=== PATIENT | female | born 1965 | race Caucasian/White ===

== ENCOUNTER → 2022-01-29 | Outpatient (CLI) | payer MEDICARE, MEDICAID | LOC: WOUNDCARE 08:46 | PROVIDERS: ATTEND Family Medicine | DX: L89.154 Pressure ulcer of sacral region, stage 4 (principal); L89.612 Pressure ulcer of right heel, stage 2; M46.28 Osteomyelitis of vertebra, sacral and sacrococcygeal region; E66.01 Morbid (severe) obesity due to excess calories; F72 Severe intellectual disabilities; E43 Unspecified severe protein-calorie malnutrition; U09.9 Post COVID-19 condition, unspecified; D46.4 Refractory anemia, unspecified; E55.9 Vitamin D deficiency, unspecified | CPT/HCPCS: 11042; 11045; A6212; G0463 ==

== ENCOUNTER → 2022-02-06 | Outpatient (CLI) | payer MEDICARE, MEDICAID | LOC: WOUNDCARE 09:19 | PROVIDERS: ATTEND Family Medicine | DX: L89.154 Pressure ulcer of sacral region, stage 4 (principal); L89.612 Pressure ulcer of right heel, stage 2; M46.28 Osteomyelitis of vertebra, sacral and sacrococcygeal region; E66.01 Morbid (severe) obesity due to excess calories; F72 Severe intellectual disabilities; U09.9 Post COVID-19 condition, unspecified; D64.9 Anemia, unspecified; E55.9 Vitamin D deficiency, unspecified; R47.01 Aphasia; F31.9 Bipolar disorder, unspecified; F20.9 Schizophrenia, unspecified | CPT/HCPCS: 11042; 11045; A6212; G0463 ==

== ENCOUNTER → 2022-02-13 | Outpatient (CLI) | payer MEDICARE, MEDICAID | LOC: WOUNDCARE 08:45 | PROVIDERS: ATTEND Family Medicine | DX: L89.154 Pressure ulcer of sacral region, stage 4 (principal); L89.612 Pressure ulcer of right heel, stage 2; M46.28 Osteomyelitis of vertebra, sacral and sacrococcygeal region; E66.01 Morbid (severe) obesity due to excess calories; F72 Severe intellectual disabilities; U09.9 Post COVID-19 condition, unspecified; E55.9 Vitamin D deficiency, unspecified; D46.4 Refractory anemia, unspecified; I96 Gangrene, not elsewhere classified | CPT/HCPCS: 11042; 11045; A6212; G0463 ==

== ENCOUNTER → 2022-02-21 | Outpatient (CLI) | payer MEDICARE, MEDICAID | LOC: WOUNDCARE 09:43 | PROVIDERS: ATTEND Family Medicine | DX: L89.154 Pressure ulcer of sacral region, stage 4 (principal); M46.28 Osteomyelitis of vertebra, sacral and sacrococcygeal region; E66.01 Morbid (severe) obesity due to excess calories; F72 Severe intellectual disabilities; U09.9 Post COVID-19 condition, unspecified; D46.4 Refractory anemia, unspecified; E55.9 Vitamin D deficiency, unspecified; I96 Gangrene, not elsewhere classified | CPT/HCPCS: 11042; 11045; 87070; 87077; 87186; 87205; G0463 ==

== ENCOUNTER → 2022-02-28 | Outpatient (CLI) | payer MEDICARE, MEDICAID | LOC: WOUNDCARE 09:31 | PROVIDERS: ATTEND Family Medicine | DX: L89.154 Pressure ulcer of sacral region, stage 4 (principal); M46.28 Osteomyelitis of vertebra, sacral and sacrococcygeal region; E66.01 Morbid (severe) obesity due to excess calories; F79 Unspecified intellectual disabilities; U09.9 Post COVID-19 condition, unspecified; E55.9 Vitamin D deficiency, unspecified; D46.4 Refractory anemia, unspecified; B95.2 Enterococcus as the cause of diseases classified elsewhere; I96 Gangrene, not elsewhere classified | CPT/HCPCS: 11043; 11046; G0463 ==

== ENCOUNTER → 2022-03-05 | Outpatient (CLI) | payer MEDICARE, MEDICAID ==
[~2022-03-05] MED LIST: CATHETER FLUSH 10 ML SYR IV PRN; HOLD METFORMIN - RECEIVED CONTRAST 20 ML VIAL IV SCH; IOHEXOL 350 MG/ML 100 ML (OMNIPAQUE 350) VIAL IV ONE; NS 100 ML (IVPB) BAG IV ONE
--- NOTE | 2022-03-05 13:42 | Diagnostic Imaging Report ---
EXAMINATION: CT abdomen and pelvis with intravenous contrast. TECHNIQUE: Multiple contiguous axial images were obtained through the abdomen and pelvis after the uneventful administration of intravenous contrast. All CT scans use one or more of the following dose optimizing techniques: automated exposure control, MA and/or KvP adjustment based on patient size and exam type or iterative reconstruction. HISTORY: Abdominal pain. COMPARISON: None available. FINDINGS: Limited views of the lower thorax are unremarkable. The liver is normal without focal lesion. There is no biliary ductal dilation. Gallbladder is normal. Pancreas is normal. Spleen is normal. Adrenal glands are normal. The kidneys are normal. There is no hydronephrosis. Bladder is decompressed by Pichardo catheter. Bowel is normal in caliber without obstruction or inflammation. There is a percutaneous gastrostomy tube. No free fluid or air. No abdominal or pelvic lymphadenopathy. Aorta is normal in caliber without aneurysm. There is a sacral wound directly abutting the coccyx. No erosions or sclerosis are seen in the coccyx. IMPRESSION: 1. No acute intra-abdominal abnormality. 2. Sacral decubitus ulcer abutting the coccyx, concerning for osteomyelitis. No direct CT evidence is seen of osteomyelitis. Dictated by: Dictated on workstation # [id number]
== END ==
LOC: RAD 13:00
PROVIDERS: ATTEND Nurse Practitioner Family
DX: L89.159 Pressure ulcer of sacral region, unspecified stage (principal); R10.9 Unspecified abdominal pain
CPT/HCPCS: 74177

== ENCOUNTER → 2022-03-06 | Outpatient (CLI) | payer MEDICARE, MEDICAID | LOC: WOUNDCARE 14:39 | PROVIDERS: ATTEND Family Medicine | DX: L89.154 Pressure ulcer of sacral region, stage 4 (principal); M46.28 Osteomyelitis of vertebra, sacral and sacrococcygeal region; E66.01 Morbid (severe) obesity due to excess calories; F72 Severe intellectual disabilities; U09.9 Post COVID-19 condition, unspecified; D46.4 Refractory anemia, unspecified; E55.9 Vitamin D deficiency, unspecified; B95.2 Enterococcus as the cause of diseases classified elsewhere; I96 Gangrene, not elsewhere classified | CPT/HCPCS: 11043; 11046; G0463 ==

== ENCOUNTER → 2022-03-19 | Outpatient (CLI) | payer MEDICARE, MEDICAID | LOC: WOUNDCARE 14:19 | PROVIDERS: ATTEND Family Medicine | DX: L89.154 Pressure ulcer of sacral region, stage 4 (principal); M46.28 Osteomyelitis of vertebra, sacral and sacrococcygeal region; E66.01 Morbid (severe) obesity due to excess calories; F72 Severe intellectual disabilities; U09.9 Post COVID-19 condition, unspecified; E55.9 Vitamin D deficiency, unspecified; D46.4 Refractory anemia, unspecified; B95.2 Enterococcus as the cause of diseases classified elsewhere; I96 Gangrene, not elsewhere classified | CPT/HCPCS: 99213 ==

== ENCOUNTER → 2022-04-03 | Outpatient (CLI) | payer MEDICARE, MEDICAID | LOC: WOUNDCARE 09:50 | PROVIDERS: ATTEND Family Medicine | DX: I96 Gangrene, not elsewhere classified (principal); L89.154 Pressure ulcer of sacral region, stage 4; M46.28 Osteomyelitis of vertebra, sacral and sacrococcygeal region; F72 Severe intellectual disabilities; D46.4 Refractory anemia, unspecified; L21.8 Other seborrheic dermatitis; E55.9 Vitamin D deficiency, unspecified; U09.9 Post COVID-19 condition, unspecified | CPT/HCPCS: 11042; G0463 ==

== ENCOUNTER 2022-04-23 17:15 | Inpatient (IN) | payer MEDICARE, MEDICAID ==
[~2022-04-23] VITALS: Ht 167.7 cm; Wt 84.9 kg
--- NOTE | 2022-04-23 17:25 | ED General ---
General Chief Complaint: General Problems/Pain Stated Complaint: UTI Source of Information: EMS Exam Limitations: Physical Impairments (LORENA NEWBERRY MD) History of Present Illness Date Seen by Provider: Apr 23, 2022 Time Seen by Provider: 17:15 Initial Comments Patient is a 57-year-old mentally challenged individual from a local [facility] with feeding tube and chronic indwelling Suarez catheter sent for persistent crying and not improving post treatment for UTI last week. She finished 3 days of Rocephin on Thursday. At the same time she has had bilateral conjunctivitis for which she is on tobramycin drops. She does not communicate well due to her intellectual disability. I am unable to elicit HPI, review of systems, past medical family or social history. She does say "I do not feel good" and is crying out persistently. Timing/Duration: 1 Week (LORENA NEWBERRY MD) Allergies and Home Medications Allergies Coded Allergies: cranberry (Verified Allergy, Unknown, 04/23/22) Patient Home Medication List Home Medication List Reviewed: Yes (LORENA NEWBERRY MD) Review of Systems Review of Systems Constitutional: see HPI EENTM: eye pain (Discharge), tearing Unable to obtain review of systems due to intellectual disability (LORENA NEWBERRY MD) Physical Exam Vital Signs Vital Signs - First Documented 04/23/22 17:18 Temp 37.3 Pulse 110 Resp 19 B/P (MAP) 118/90 (99) Pulse Ox 97 (JED PARIS MD) Vital Signs Capillary Refill : (LORENA NEWBERRY MD) Height, Weight, BMI Height: '" Weight: lbs. oz. kg; BMI Method: General Appearance: Anxious, Moderate Distress (crying) Eyes: Bilateral Eye Lid Inflammation, Bilateral Eye Other (yellow drainage and conjunctival injection bilaterally) HEENT: PERRL/EOMI, TM Abnormal (L) (occluded by cerumen), Other (dry oral mucosa - no lesions or abscesses noted) Neck: Normal Inspection, Supple Respiratory: Lungs Clear, Normal Breath Sounds, No Accessory Muscle Use, No Respiratory Distress Cardiovascular: Regular Rate, Rhythm, Normal Peripheral Pulses Gastrointestinal: Soft, Other (peg tube/feeding tube site is clean) Genital/Rectal: Other (no rashes - large sacral decubitus ulcer - cleanly packed with saline soaked gauze; no drainage. no surrounding erythema; clean suarez catheter in place) Back: Normal Inspection Extremity: Normal Inspection Neurologic/Psychiatric: Alert, Other (distressed, crying out) Skin: Normal Color, Warm/Dry, Other (no rashes) (LORENA NEWBERRY MD) Focused Exam Sepsis Stage: Sepsis Possible Source: Genitouriary Lactate Level 04/23/22 17:50: Lactic Acid Level 2.05*H 04/23/22 19:57: Lactic Acid Level 2.01*H 04/23/22 22:12: Lactic Acid Level 1.85 (JED PARIS MD) Time of Focused Exam: 20:50 Respiratory: Lungs Clear Cardiovascular: Regular Rate, Rhythm, No Edema Skin: normal color Lactic Acid Level Laboratory Tests Test 04/23/22 17:50 04/23/22 19:57 04/23/22 22:12 Lactic Acid Level 2.05 MMOL/L (0.50-2.00) *H 2.01 MMOL/L (0.50-2.00) *H 1.85 MMOL/L (0.50-2.00) (JED PARIS MD) Within 3hrs of presentation: Admin fluids, Admin ABX, Blood cultures prior to ABX's, Focus exam, Lactate level (JED PARIS MD) Progress/Results/Core Measures Suspected Sepsis SIRS Temperature: Pulse: Respiratory Rate: Laboratory Tests 04/23/22 17:50: White Blood Count 18.5H Blood Pressure / Mean: 04/23/22 17:50: Lactic Acid Level 2.05*H 04/23/22 19:57: Lactic Acid Level 2.01*H 04/23/22 22:12: Lactic Acid Level 1.85 Laboratory Tests 04/23/22 17:50: Creatinine 0.61, INR Comment 1.0, Platelet Count 559H, Total Bilirubin 0.2 (LORENA NEWBERRY MD) Results/Orders Lab Results Laboratory Tests Test 04/23/22 17:50 04/23/22 19:57 04/23/22 22:12 Range/Units White Blood Count 18.5 H 4.3-11.0 10^3/uL Red Blood Count 3.66 L 3.80-5.11 10^6/uL Hemoglobin 11.5 11.5-16.0 g/dL Hematocrit 36 35-52 % Mean Corpuscular Volume 97 80-99 fL Mean Corpuscular Hemoglobin 31 25-34 pg Mean Corpuscular Hemoglobin Concent 32 32-36 g/dL Red Cell Distribution Width 14.4 10.0-14.5 % Platelet Count 559 H 130-400 10^3/uL Mean Platelet Volume 9.2 9.0-12.2 fL Immature Granulocyte % (Auto) 1 % Neutrophils (%) (Auto) 69 42-75 % Lymphocytes (%) (Auto) 19 12-44 % Monocytes (%) (Auto) 9 0-12 % Eosinophils (%) (Auto) 1 0-10 % Basophils (%) (Auto) 0 0-10 % Neutrophils # (Auto) 12.7 H 1.8-7.8 10^3/uL Lymphocytes # (Auto) 3.6 1.0-4.0 10^3/uL Monocytes # (Auto) 1.7 H 0.0-1.0 10^3/uL Eosinophils # (Auto) 0.2 0.0-0.3 10^3/uL Basophils # (Auto) 0.0 0.0-0.1 10^3/uL Immature Granulocyte # (Auto) 0.3 H 0.0-0.1 10^3/uL Neutrophils % (Manual) 66 % Lymphocytes % (Manual) 20 % Monocytes % (Manual) 11 % Eosinophils % (Manual) 1 % Band Neutrophils 2 % Polychromasia SLIGHT Prothrombin Time 13.2 12.2-14.7 SEC INR Comment 1.0 0.8-1.4 Activated Partial Thromboplast Time 26 24-35 SEC Urine Color YELLOW Urine Clarity CLEAR Urine pH 8.0 5-9 Urine Specific [place] 1.010 L 1.016-1.022 Urine Protein TRACE H NEGATIVE Urine Glucose (UA) NEGATIVE NEGATIVE Urine Ketones NEGATIVE NEGATIVE Urine Nitrite NEGATIVE NEGATIVE Urine Bilirubin NEGATIVE NEGATIVE Urine Urobilinogen 0.2 < = 1.0 MG/DL Urine Leukocyte Esterase 2+ H NEGATIVE Urine RBC (Auto) NEGATIVE NEGATIVE Urine RBC NONE /HPF Urine WBC 25-50 H /HPF Urine Squamous Epithelial Cells NONE /HPF Urine Crystals NONE /LPF Urine Bacteria MODERATE H /HPF Urine Casts NONE /LPF Urine Mucus SMALL H /LPF Urine Culture Indicated CULTURE PENDING Sodium Level 137 135-145 MMOL/L Potassium Level 3.9 3.6-5.0 MMOL/L Chloride Level 99 98-107 MMOL/L Carbon Dioxide Level 26 21-32 MMOL/L Anion Gap 12 5-14 MMOL/L Blood Urea Nitrogen 32 H 7-18 MG/DL Creatinine 0.61 0.60-1.30 MG/DL Estimat Glomerular Filtration Rate 104 BUN/Creatinine Ratio 52 Glucose Level 108 H 70-105 MG/DL Lactic Acid Level 2.05 *H 2.01 *H 1.85 0.50-2.00 MMOL/L Calcium Level 9.8 8.5-10.1 MG/DL Corrected Calcium 10.7 H 8.5-10.1 MG/DL Total Bilirubin 0.2 0.1-1.0 MG/DL Aspartate Amino Transf (AST/SGOT) 16 5-34 U/L Alanine Aminotransferase (ALT/SGPT) 10 0-55 U/L Alkaline Phosphatase 89 40-136 U/L C-Reactive Protein High Sensitivity 1.29 H 0.00-0.50 MG/DL Total Protein 7.6 6.4-8.2 GM/DL Albumin 2.9 L 3.2-4.5 GM/DL Procalcitonin 0.10 H <0.10 NG/ML SARS-CoV-2 RNA (RT-PCR) Not Detected Not Detecte (JED PARIS MD) My Orders Orders - JED PARIS MD Ceftriaxone 1 Gm Pre-Mix (Rocephin 1 Gm (04/23/22 19:00) Ondansetron Injection (Zofran Injectio (04/23/22 20:30) Fentanyl Inj (Sublimaze Injection) (04/23/22 20:30) Ampicillin For Iv Use (Ampicillin For (04/23/22 20:30) Ct Abdomen/Pelvis W (04/23/22 21:00) Iohexol Injection (Omnipaque 350 Mg/Ml 1 (04/23/22 21:15) Ns (Ivpb) (Sodium Chloride 0.9% Ivpb Bag (04/23/22 21:15) Lactated Ringers (Lr 1000 Ml Iv Solution (04/23/22 23:00) (JED PARIS MD) Medications Given in ED Current Medications Medications Dose Ordered Sig/Schuyler Route Start Time Stop Time Status Last Admin Dose Admin Ampicillin Sodium 1000 mg/Sterile Water 7.4 ml @ 30 mls/hr ONCE ONCE IV 04/23/22 20:30 04/23/22 20:44 DC 04/23/22 21:22 30 MLS/HR Fentanyl Citrate 50 mcg ONCE ONCE IVP 04/23/22 20:30 04/23/22 20:31 DC 04/23/22 20:38 50 MCG Iohexol 100 ml ONCE ONCE IV 04/23/22 21:15 04/23/22 21:16 DC 04/23/22 21:11 100 ML Ondansetron HCl 8 mg ONCE ONCE IVP 04/23/22 20:30 04/23/22 20:31 DC 04/23/22 20:37 8 MG Sodium Chloride 100 ml ONCE ONCE IV 04/23/22 21:15 04/23/22 21:16 DC 04/23/22 21:11 80 ML (JED PARIS MD) Vital Signs/I&O 04/23/22 17:18 Temp 37.3 Pulse 110 Resp 19 B/P (MAP) 118/90 (99) Pulse Ox 97 (JED PARIS MD) Vital Signs/I&O Capillary Refill : (LORENA NEWBERRY MD) Departure Communication (Admissions) Time/Spoke to Admitting Phy: 22:50 Dr. Celeste Time/Spoke to Consulting Phy: 22:55 Dr. Lanier (JED PARIS MD) Impression Primary Impression: Sepsis Qualified Codes: A41.9 - Sepsis, unspecified organism Additional Impressions: Urinary tract infection Qualified Codes: N39.0 - Urinary tract infection, site not specified Decubitus ulcer of coccygeal region, stage 4 Abdominal pain Qualified Codes: R10.10 - Upper abdominal pain, unspecified Conjunctivitis Disposition: 01 HOME, SELF-CARE Condition: Stable Admissions Decision to Admit Reason: Admit from ER (General) Decision to Admit/Date: Apr 23, 2022 Time/Decision to Admit Time: 22:55 (JED PARIS MD) Departure-Patient Inst. Referrals: JOHN PICKERING MD (PCP/Family) Primary Care Physician LORENA NEWBERRY MD Apr 23, 2022 17:24 JED PARIS MD Apr 23, 2022 23:13
[2022-04-23] MEDS ORDERED: NS IV 1000 ML 1,000 ML IV SCH (17:30)
[2022-04-23 18:03] LABS: BASOPHILS % (AUTO) 0 % (0-10); EOSINOPHILS # (AUTO) 0.2 10^3/uL (0.0-0.3); EOSINOPHILS % (AUTO) 1 % (0-10); HEMATOCRIT 36 % (35-52); HEMOGLOBIN 11.5 g/dL (11.5-16.0); LYMPHOCYTES # (AUTO) 3.6 10^3/uL (1.0-4.0); LYMPHOCYTES % (AUTO) 19 % (12-44); MEAN CORPUSCULAR HEMOGLOBIN 31 pg (25-34); MEAN CORPUSCULAR HGB CONC 32 g/dL (32-36); MEAN CORPUSCULAR VOLUME 97 fL (80-99); MEAN PLATELET VOLUME 9.2 fL (9.0-12.2); MONOCYTES # (AUTO) 1.7 10^3/uL (0.0-1.0); MONOCYTES % (AUTO) 9 % (0-12); NEUTROPHILS # (AUTO) 12.7 10^3/uL (1.8-7.8); NEUTROPHILS % (AUTO) 69 % (42-75); WHITE BLOOD COUNT 18.5 10^3/uL (4.3-11.0)
--- NOTE | 2022-04-23 18:06 | Diagnostic Imaging Report ---
INDICATION: Altered mental status, confusion. COMPARISON: None available. TECHNIQUE: Single radiograph of the chest dated April 23, 2022. FINDINGS: The cardiac silhouette is within normal limits in size. No significant pulmonary vascular congestion. Patient rotation is present. When accounting for patient rotation, the lungs appear clear. No pleural effusion. No pneumothorax. No acute osseous abnormality. IMPRESSION: No acute cardiopulmonary abnormality. Dictated by: Dictated on workstation # [id number]
[2022-04-23 18:14] LABS: BILIRUBIN,URINE NEGATIVE (NEGATIVE); CLARITY,URINE CLEAR; COLOR,URINE YELLOW; GLUCOSE, URINE (UA) NEGATIVE (NEGATIVE); KETONES,URINE NEGATIVE (NEGATIVE); LEUKOCYTE ESTERASE ,URINE 2+ (NEGATIVE); NITRITE,URINE NEGATIVE (NEGATIVE); PROTEIN,URINE TRACE (NEGATIVE)
[2022-04-23 18:17] LABS: PROTHROMBIN TIME PATIENT 13.2 SEC (12.2-14.7)
[2022-04-23 18:24] LABS: ALBUMIN 2.9 GM/DL (3.2-4.5); BILIRUBIN,TOTAL 0.2 MG/DL (0.1-1.0); CALCIUM 9.8 MG/DL (8.5-10.1); CREATININE SERUM 0.61 MG/DL (0.60-1.30); POTASSIUM 3.9 MMOL/L (3.6-5.0); TOTAL PROTEIN 7.6 GM/DL (6.4-8.2)
[2022-04-23 18:48] LABS: BACTERIA,URINE MODERATE /HPF; WBC,URINE 25-50 /HPF
[2022-04-23] MEDS ORDERED: cefTRIAXone 1 GM PRE-MIX 50 ML IV STA (19:00)
[2022-04-23 19:24] LABS: BAND NEUTROPHILS 2 %; LYMPHOCYTES % (MANUAL) 20 %; MONOCYTES % (MANUAL) 11 %; NEUTROPHILS % (MANUAL) 66 %; PLATELET COUNT 559 10^3/uL (130-400)
[2022-04-23 19:25] LABS: EOSINOPHILS % (MANUAL) 1 %; POLYCHROMASIA SLIGHT
[2022-04-23] MEDS ORDERED: AMPICILLIN FOR IV USE 1,000 MG in WATER (STERILE) FOR INJECTION 7.4 ML IV ONE (20:30)
[2022-04-23] MEDS ORDERED: fentaNYL INJ 100 MCG/2 ML AMP IVP ONE (20:30)
[2022-04-23] MEDS ORDERED: ONDANSETRON 4 MG/2 ML (SDV) Z0FRAN IVP ONE (20:30)
[2022-04-23] MEDS ORDERED: IOHEXOL 350 MG/ML 100 ML (OMNIPAQUE 350) VIAL IV ONE (21:15)
[2022-04-23] MEDS ORDERED: NS 100 ML (IVPB) BAG IV ONE (21:15)
--- NOTE | 2022-04-23 21:33 | Diagnostic Imaging Report ---
PROCEDURE: CT abdomen and pelvis with contrast. TECHNIQUE: Multiple contiguous axial images were obtained through the abdomen and pelvis after administration of intravenous contrast. Auto Exposure Controls were utilized during the CT exam to meet ALARA standards for radiation dose reduction. All CT scans use one or more of the following dose optimizing techniques: automated exposure control, MA and/or KvP adjustment based on patient size and exam type or iterative reconstruction. INDICATION: Abdominal pain. Leukocytosis. UTI. COMPARISON: 03/05/2022. FINDINGS: Included portions of the lung bases are obscured by motion artifact. There is mild atelectasis posteriorly on the left. CT ABDOMEN: Indwelling percutaneous gastrostomy tube is identified. Although the patency of the tube cannot be assessed, the tube does appear to be in appropriate position. Small bowel loops are nondistended. Normal appendix is identified. The kidneys, adrenal glands, spleen, pancreas and liver have a normal CT appearance. There is no loculated fluid collection, free fluid or free air within the abdomen. No abnormal mesenteric or retroperitoneal adenopathy is seen. Mild scattered calcified aortic and arterial atherosclerosis is noted. Osseous structures show no acute abnormality. CT PELVIS: Pichardo catheter is present within the urinary bladder. Urinary bladder is decompressed. There is no loculated fluid collection, free fluid or free air. No abnormal adenopathy is seen. Large decubitus ulcer is identified posteriorly. This extends to the coccyx. There is abnormal sclerotic appearance of the coccyx. Constellation of findings are concerning for osteomyelitis. IMPRESSION: 1. Large decubitus ulcer with sclerotic change to the coccyx. This is new compared to 03/05/2022 and is concerning for osteomyelitis. 2. Other nonemergent findings as above. Dictated by: Dictated on workstation # [id number]
[2022-04-23] MEDS ORDERED: LACTATED RINGERS 1,000 ML IV ONE (23:00)
[2022-04-24] VITALS (11 sets, daily range): BP systolic 101–153; BP diastolic 61–85
[2022-04-24] MEDS ORDERED: ONDANSETRON 4 MG/2 ML (SDV) Z0FRAN IV PRN (01:15)
[2022-04-24] MEDS: LACTATED RINGERS 1,000 ML IV SCH ×4 (01:52→21:15)
[2022-04-24] MEDS: AMPICILLIN 2,000 MG/NS 100 ML IVPB IV SCH ×8 (03:39→21:33)
[2022-04-24 06:41] LABS: CALCIUM 9.5 MG/DL (8.5-10.1); CREATININE SERUM 0.6 MG/DL (0.60-1.30); POTASSIUM 3.9 MMOL/L (3.6-5.0)
[2022-04-24] MEDS ORDERED: HYPOCHLOROUS ACID/NaCl (VASHE) 250 ML IR SCH (08:45)
--- NOTE | 2022-04-24 08:52 | Wound Care Assessment ---
Wound Care Assessment Date Seen by Provider: Apr 24, 2022 Time Seen by Provider: 08:42 Chief Complaint S4 Sacral decubitus ulcer with chronic refractory osteomyelitis HPI Latoya is a 57 year old patient with severe intellectual disability admitted to hospital with sepsis from osteomyelitis vs. urinary origin. She is currently at her baseline mental status from my past interactions with her. She is unable to provide history and cries out frequently when disturbed. We have been treating Latoya since 01-29-22 for this ulceration with significant improvement in measurements. Her initial measurements were: 6.5x5.0x2.7cm. She developed ulceration as a post-COVID complication. We did do a MRI in December which showed a possible early osteomyelitis. She completed 27 days of IV Daptomycin/Cefepime and Flagyl on first admission/treatment and subsequently received an addition 14 days of Linezolid and Augmentin oral. Follow up CT on today's admit confirms chronic refractory osteomyelitis. Latoya has been using Vashe WTD dressings BID at her care facility and we will continue today. On exam there is purulent drainage and we will also order a culture of this. She appears to be on Rocephin and Ampicillin currently. Last wound culture as outpatient was in February with VRE and Proteus. We have already consulted plastic surgery in Latoya's case and she has an appointment on 05/08/[address] Barraza at for evaluation for possible debridement and flap procedure. We are also considering wound vac therapy, but I would prefer with current drainage to have several doses of antibiotics in prior to initiation. I will discuss with the wound care nurse as to implementation initiation. Continued targeted antibiotics (IV or highly bioavailable oral) would be recommended to initiate and continue until plastics has seen and defini tive plan or care established. Will defer choice to primary team once cultures returned. Latoya does have PEG tube and her protein status has improved (latest prealbumin in January was 23 (I will repeat today). Recreational Drug Use: No Alcohol Use: Denies Use Other Social Hx She is not currently a smoker but unable to obtain history on past use Review of Systems Other systems Unable to obtain ROS due to mental status Exam Vital Signs Date Time Temp Pulse Resp B/P (MAP) Pulse Ox O2 Delivery O2 Flow Rate FiO2 04/24/22 08:18 36.6 93 20 153/85 (107) 97 Room Air Capillary Refill : General Appearance: moderate distress (cries out with any touching (this is her baseline by my experience)), obese Neck: full range of motion Cardiovascular: no edema Respiratory: no respiratory distress, no accessory muscle use Gastrointestinal: other (incontinence of bowel) Back: other (see below) Extremities: no pedal edema Neurologic/Psychiatric: alert, other (Latoya is not oriented and has severe intellectual disability. She is unable to effectively communicate ) Skin: normal color, warm/dry Skin Problem Location: other (sacrum) Skin Character: drainage (purulent (green)) Wound assessment: 3.3x3.5x1.8cm. The epithelialization is none. There is no tunneling or undermining. Drainage is large and purulent. Granulation is none. Necrotic is large and slough. Margins show epibole. Results Laboratory Tests 04/23/22 17:50: White Blood Count 18.5H, Red Blood Count 3.66L, Hemoglobin 11.5, Hematocrit 36, Mean Corpuscular Volume 97, Mean Corpuscular Hemoglobin 31, Mean Corpuscular Hemoglobin Concent 32, Red Cell Distribution Width 14.4, Platelet Count 559H, Mean Platelet Volume 9.2, Immature Granulocyte % (Auto) 1, Neutrophils (%) (Auto) 69, Lymphocytes (%) (Auto) 19, Monocytes (%) (Auto) 9, Eosinophils (%) (Auto) 1, Basophils (%) (Auto) 0, Neutrophils # (Auto) 12.7H, Lymphocytes # (Auto) 3.6, Monocytes # (Auto) 1.7H, Eosinophils # (Auto) 0.2, Basophils # (Auto) 0.0, Immature Granulocyte # (Auto) 0.3H, Neutrophils % (Manual) 66, Lymphocytes % (Manual) 20, Monocytes % (Manual) 11, Eosinophils % (Manual) 1, Band Neutrophils 2, Polychromasia SLIGHT, Prothrombin Time 13.2, INR Comment 1.0, Activated Partial Thromboplast Time 26, Urine Color YELLOW, Urine Clarity CLEAR, Urine pH 8.0, Urine Specific [place] 1.010L, Urine Protein TRACEH, Urine Glucose (UA) NEGATIVE, Urine Ketones NEGATIVE, Urine Nitrite NEGATIVE, Urine Bilirubin NEGATIVE, Urine Urobilinogen 0.2, Urine Leukocyte Esterase 2+H, Urine RBC (Auto) NEGATIVE, Urine RBC NONE, Urine WBC 25-50H, Urine Squamous Epithelial Cells NONE, Urine Crystals NONE, Urine Bacteria MODERATEH, Urine Casts NONE, Urine Mucus SMALLH, Urine Culture Indicated CULTURE PENDING, Sodium Level 137, Potassium Level 3.9, Chloride Level 99, Carbon Dioxide Level 26, Anion Gap 12, Blood Urea Nitrogen 32H, Creatinine 0.61, Estimat Glomerular Filtration Rate 104, BUN/Creatinine Ratio 52, Glucose Level 108H, Lactic Acid Level 2.05*H, Calcium Level 9.8, Corrected Calcium 10.7H, Total Bilirubin 0.2, Aspartate Amino Transf (AST/SGOT) 16, Alanine Aminotransferase (ALT/SGPT) 10, Alkaline Phosphatase 89, C-Reactive Protein High Sensitivity 1.29H, Total Protein 7.6, Albumin 2.9L, Procalcitonin 0.10H, SARS-CoV-2 RNA (RT-PCR) Not Detected 04/23/22 19:57: Lactic Acid Level 2.01*H 04/23/22 22:12: Lactic Acid Level 1.85 04/24/22 06:15: Sodium Level 138, Potassium Level 3.9, Chloride Level 103, Carbon Dioxide Level 24, Anion Gap 11, Blood Urea Nitrogen 22H, Creatinine 0.60, Estimat Glomerular Filtration Rate 104, BUN/Creatinine Ratio 37, Glucose Level 93, Calcium Level 9.5, C-Reactive Protein High Sensitivity 1.67H Assessment/Plan/Dx Assessment: 1. Post-COVID Stage 4 Sacral decubitus ulcer 2. Chronic refractory sacral osteomyelitis with new sepsis 3. Obesity 4. PEM (improved) 5. Severe intellectual disability 6. Fecal incontinence Plan: 1. Cleanse with Vashe. Apply barrier ointment to periwound. Loosely fluff vashe dampened 4x[address] in wound bed. Covere with Allevyn bordered foam and change twice daily and prn for soiling. Keep appointment with Plastics at in near future for definitive plan of care. Will consider wound vac initiation as well. 2. Wound culture. Agree with targeted antibiotics. Plan to continue these at least until evaluation by Plastics at in near future. 3. Defer to primary team 4. Repeat prealbumin. Defer nutrition to primary team 5. At baseline 6. See above. MILENA FLORES MD Apr 24, 2022 08:52
[2022-04-24] MEDS: TOBRAMYCIN (TOBREX) 0.3% OPHTH SOLN 5 ML OU SCH ×4 (09:54→23:05)
[2022-04-24] MEDS ORDERED: FURO40TA4 PO (10:58)
[2022-04-24] MEDS ORDERED: MELA5TAB14 PO (10:59)
[2022-04-24] MEDS ORDERED: PANT40TA52 PO (11:02)
[2022-04-24] MEDS ORDERED: MULT9LIQ9 PEG (11:02)
[2022-04-24] MEDS ORDERED: DOCU100T2 PO (11:03)
[2022-04-24] MEDS ORDERED: CARI1.5C PEG (11:05)
[2022-04-24] MEDS ORDERED: CLON0.5T4 PO (11:06)
[2022-04-24] MEDS ORDERED: ACHD5005 PEG (11:11)
[2022-04-24] MEDS ORDERED: ARGI1POW4 PEG (11:14)
[2022-04-24] MEDS ORDERED: LACT1CAP28 PO (11:15)
[2022-04-24] MEDS ORDERED: VALP250S3 PEG (11:17)
[2022-04-24] MEDS ORDERED: [UNRECOGNIZED DRUG - CODE] TOP (11:18)
[2022-04-24] MEDS ORDERED: TBR.3OP51 OU (11:19)
[2022-04-24] MEDS ORDERED: ACET160L34 PEG (11:22)
[2022-04-24] MEDS ORDERED: NSTR15C TP (11:23)
[2022-04-24] MEDS ORDERED: LEVO112C4 PO (11:24)
--- NOTE | 2022-04-24 12:26 | History & Physical-Hospitalist ---
History of Present Illness HPI/Chief Complaint Pt is a 57yoCF with a PMH of intellectual disability with chronic indwelling Suarez and PEG tube dependence who presented from the snf due to crying. Apparently she was treated last week for urinary tract infection with Rocephin for 3 days. This completed on April 18. The snf felt that she was not improving but as the patient is noncommunicative patient is unable to provide any history. During my conversation with her she was sitting in bed and did not speak but did moan when I went to look at her feet. Source: patient Date Seen 04/24/22 Time Seen by a Provider: 11:15 Attending Physician Stan Eagle MD PCP Admitting Physician: Zachary Celeste MD Attending Physician: Zachary Celeste MD Referring Physician Date of Admission Apr 23, 2022 at 22:59 Home Medications & Allergies Home Medications Reviewed patient Home Medication Reconciliation performed by pharmacy medication reconciliations outer diameter technician and/or nursing. Patients Allergies have been reviewed. Allergies Allergies Coded Allergies cranberry (Verified Allergy, Unknown, 04/23/22) Past Tbwlksv-Kbwzyh-Lwrwwn Hx Patient Social History Living Status: Resides in [place] Employed/Student: unemployed Tobacco Use?: No Use of E-Cig and/or Vaping dev: No Substance use?: No Alcohol Use?: No Current Status Communicates: Gestures, Points, Verbally Primary Language: South African Preferred Spoken Language: [place] African Sensory deficits: Speech impairment, Other Additional sensory deficits: pt has MR diagnosis Implanted or Applied Medical D: Other (indwelling catheter and PEG ) Past Medical History Developmental Disorder Family Medical History Reviewed Nursing Family Hx (unable to obtain due to patient's intellectual disability) Review of Systems ROS-Unable to Obtain: intelletual disability, did not speak Constitutional: see HPI Physical Exam Physical Exam Vital Signs Vital Signs - First Documented 04/23/22 04/24/22 17:18 00:30 Temp 37.3 Pulse 110 Resp 19 B/P (MAP) 118/90 (99) Pulse Ox 97 O2 Delivery Room Air Capillary Refill : Height, Weight, BMI Height: '" Weight: lbs. oz. kg; 30.18 BMI Method: General Appearance: No Apparent Distress, Chronically ill HEENT: PERRL/EOMI, Moist Mucous Membranes; No Scleral Icterus (L), No Scleral Icterus (R) Neck: Normal Inspection, Supple Respiratory: Lungs Clear, No Respiratory Distress Cardiovascular: Regular Rate, Rhythm, No Murmur Gastrointestinal: Normal Bowel Sounds, Soft, Other (PEG) Genital/Rectal: Other (suarez in place) Extremity: No Calf Tenderness, Pedal Edema Neurologic/Psychiatric: Alert; No Facial Droop; Other (did not speak, moaned only) Skin: Normal Color, Warm/Dry Results Results/Procedures Labs Laboratory Tests 04/25/22 06:19 04/26/22 05:42 Patient resulted labs reviewed. Imaging: Reviewed Imaging Report Imaging [facility], [place] NAME: MATT LINK [facility] REC#: [id number] PT STATUS: REG ER : 1965 PHYSICIAN: LORENA NEWBERRY MD ADMIT DATE: 04/23/22/ER Signed Date of Exam:04/23/22 CHEST 1 VIEW, AP/PA ONLY INDICATION: Altered mental status, confusion. COMPARISON: None available. TECHNIQUE: Single radiograph of the chest dated April 23, 2022. FINDINGS: The cardiac silhouette is within normal limits in size. No significant pulmonary vascular congestion. Patient rotation is present. When accounting for patient rotation, the lungs appear clear. No pleural effusion. No pneumothorax. No acute osseous abnormality. IMPRESSION: No acute cardiopulmonary abnormality. Dictated by: Dictated on workstation # [id number] Dict: 04/23/221802 Trans: 04/23/221824 [facility] [phone] Interpreted by: LASHONDA EDMONDSON MD Electronically signed by: LASHONDA EDMONDSON MD 04/23/221824 [facility] [employer] [place], [place] NAME: MATT LINK [facility] REC#: [id number] PT STATUS: ADM IN : 1965 PHYSICIAN: JED PARIS MD ADMIT DATE: 04/23/22/4TH Signed Date of Exam:04/23/22 CT ABDOMEN/PELVIS W PROCEDURE: CT abdomen and pelvis with contrast. TECHNIQUE: Multiple contiguous axial images were obtained through the abdomen and pelvis after administration of intravenous contrast. Auto Exposure Controls were utilized during the CT exam to meet ALARA standards for radiation dose reduction. All CT scans use one or more of the following dose optimizing techniques: automated exposure control, MA and/or KvP adjustment based on patient size and exam type or iterative reconstruction. INDICATION: Abdominal pain. Leukocytosis. UTI. COMPARISON: 03/05/2022. FINDINGS: Included portions of the lung bases are obscured by motion artifact. There is mild atelectasis posteriorly on the left. CT ABDOMEN: Indwelling percutaneous gastrostomy tube is identified. Although the patency of the tube cannot be assessed, the tube does appear to be in appropriate position. Small bowel loops are nondistended. Normal appendix is identified. The kidneys, adrenal glands, spleen, pancreas and liver have a normal CT appearance. There is no loculated fluid collection, free fluid or free air within the abdomen. No abnormal mesenteric or retroperitoneal adenopathy is seen. Mild scattered calcified aortic and arterial atherosclerosis is noted. Osseous structures show no acute abnormality. CT PELVIS: Suarez catheter is present within the urinary bladder. Urinary bladder is decompressed. There is no loculated fluid collection, free fluid or free air. No abnormal adenopathy is seen. Large decubitus ulcer is identified posteriorly. This extends to the coccyx. There is abnormal sclerotic appearance of the coccyx. Constellation of findings are concerning for osteomyelitis. IMPRESSION: 1. Large decubitus ulcer with sclerotic change to the coccyx. This is new compared to 03/05/2022 and is concerning for osteomyelitis. 2. Other nonemergent findings as above. Dictated by: Dictated on workstation # [id number] Dict: 04/23/222120 Trans: 04/24/[address] [facility] [phone] Interpreted by: TAYLOR VALDIVIA MD Electronically signed by: TAYLOR VALDIVIA MD 04/24/22 1130 Assessment/Plan Admission Diagnosis Severe Sepsis Osteomyelitis Admission Status: Inpatient Order (span 2 midnights) Reason for Inpatient Admission: see below Assessment and Plan Severe Sepsis Osteomyelitis UTI- due to indwelling suarez cath- POA Continue on IV abx Surgery and Wound care consulted, apprecaite recs Lactic acidosis resolved Await cultures Intellectual disability PEG dependent Chronic indwelling suarez Continue home tube feeds Await cultures for Urine Hypothyroidism Continue home Synthroid Diagnosis/Problems Diagnosis/Problems (1) Hypothyroidism Qualifiers: Hypothyroidism type: acquired Qualified Codes: E03.9 - Hypothyroidism, unspecified (2) Severe sepsis (3) Sepsis Status: Acute Qualifiers: Sepsis type: sepsis due to unspecified organism Sepsis acute organ dysfunction status: with acute organ dysfunction Severe sepsis acute organ dysfunction type: unspecified Severe sepsis shock status: without septic shock Qualified Codes: A41.9 - Sepsis, unspecified organism; R65.20 - Severe sepsis without septic shock (4) Osteomyelitis (5) Urinary tract infection Status: Acute Qualifiers: Urinary tract infection type: site unspecified Hematuria presence: without hematuria Qualified Codes: N39.0 - Urinary tract infection, site not specified (6) Decubitus ulcer of coccygeal region, stage 4 Status: Acute (7) Conjunctivitis Status: Acute CHARAN WATERS MD Apr 24, 2022 12:26
--- NOTE | 2022-04-24 16:28 | CONSULTATION REPORT ---
DATE OF SERVICE: ATTENDING PRIMARY CARE PHYSICIAN: Dr. Stan Eagle. HISTORY OF PRESENT ILLNESS: The patient is a 57-year-old female who presented to the Emergency Department from a local fdc. She does have a severe intellectual delay and also has a tube feeding tube as well as chronic indwelling catheter. She was brought in for persistent crying and the staff reported to the Emergency Department that she had a UTI last week, it was treated; however, since finishing her antibiotics, they did not think that she had improved. She does not communicate well. She did undergo workup in the emergency room and was found to have a leukocytosis as well as an elevated lactic acid. She then underwent chest x-ray, which was unremarkable and then underwent a CT of the abdomen and pelvis where a large decubitus ulcer of the coccyx was identified and was also concerning for osteomyelitis. She was then admitted, started on antibiotics and wound care was consulted. On today's visit, she is lying in bed and does not communicate. She does moan and scream out when assessed. PAST MEDICAL HISTORY: Severe intellectual delay. PAST SURGICAL HISTORY: PEG tube placement. ALLERGIES: CRANBERRIES. MEDICATIONS: Valproic acid 250/520 mL b.i.d., tobramycin 0.3% two drops q.i.d., Protonix 40 mg daily, nystatin triamcinolone cream p.r.n., multivitamin daily, melatonin 5 mg p.o. at bedtime, levothyroxine 112 mcg daily. Acidophilus b.i.d., hydrocodone 5/325 mg b.i.d. p.r.n., Lasix 40 mg daily, docusate 100 mg at bedtime, clonazepam 0.5 mg half tablet to b.i.d., Vraylar 1.5 mg daily, Elias packet b.i.d., acetaminophen p.r.n. SOCIAL HISTORY: Negative for tobacco smoke. Negative for alcohol. FAMILY HISTORY: Noncontributory. VITAL SIGNS: Blood pressure is 127/79, pulse 87, respirations 20, pulse ox 96% on room air, temperature 36.6 degrees Celsius. REVIEW OF SYSTEMS: Unable to obtain due to the patient's intellectual disability and not communicating. PHYSICAL EXAMINATION: CHEST: Clear. Good breath sounds bilaterally. HEART: Regular, no murmurs. EXTREMITIES: No lower extremity edema. Negative Homans sign. HEENT: No scleral icterus. NECK: No cervical lymphadenopathy. ABDOMEN: Soft, nondistended. There is a PEG tube in place to left upper abdominal quadrant. SKIN: There is a large sacral decubitus ulcer with no signs of infection. The wound bed is pink and moist with good granulation tissue. NEUROLOGIC: Awake and alert. ASSESSMENT AND PLAN: A 57-year-old female with severe intellectual delay, who is a resident of a local fdc, who has a large sacral decubitus ulcer. At this time, we will continue with dressing changes wet-to-dry as well as antibiotics and wound care. She can also have oral pain medication as needed, and we will continue to monitor the wound. Due to the patients co-morbid medical conditions she has a high risk or progression and/or recurrence. Wound edges clean and ulcer chronic. Recommend off loading pressure and proceed to wet to dry dressing to allow to close by secondary intention. Do not recommend bone resection at this time due to extremely high risk of reoccurence and infection. Job ID: [id number] DocumentID: [id number] Dictated Date: 04/24/2022 14:11:10 Advanced Manufacturing Consultant Date: 04/24/2022 16:28:02 Dictated By: REMEDIOS GOLDEN
[2022-04-24] MEDS ORDERED: TOBRAMYCIN (TOBREX) 0.3% OPHTH SOLN 5 ML OU SCH (17:00)
[2022-04-24] MEDS ORDERED: cefTRIAXone 1 GM IV (PRE-MIX) 50 ML IV SCH (19:00)
[2022-04-24] MEDS ORDERED: NON-FORMULARY MEDICATION 1 EA EA (Melatonin 5 MG) PO SCH (21:00)
[2022-04-24] MEDS ORDERED: NON-FORMULARY MEDICATION 1 EA EA (Docusate Sodium 100 MG) PO SCH (21:00)
[2022-04-24] MEDS ORDERED: NON-FORMULARY MEDICATION 1 EA EA (Lactobacillus Acidophilus (Acidophilus) 1 EACH) PO SCH (21:00)
[2022-04-24] MEDS: clonazePAM 0.5 MG (KlonoPIN) TAB PO SCH (23:02)
[2022-04-24] MEDS: MELATONIN 10 MG TABLET PO SCH (23:02)
[2022-04-24] MEDS: LACTOBACILLUS ACIDOPHILUS (PROBIOTIC) CAPSULE PO SCH (23:02)
[2022-04-24] MEDS: VALPROIC ACID SYRUP 250 MG/5 ML UDC PEG SCH (23:05)
[2022-04-24] MEDS: DOCUSATE SODIUM 100 MG (COLACE) CAP PO SCH (23:27)
[2022-04-25] MEDS: AMPICILLIN 2,000 MG/NS 100 ML IVPB IV SCH ×2 (03:26)
[2022-04-25 04:00] VITALS: BP 119/73
[2022-04-25] MEDS: LACTATED RINGERS 1,000 ML IV SCH ×3 (04:30→18:39)
[2022-04-25 06:29] LABS: BASOPHILS % (AUTO) 0 % (0-10); EOSINOPHILS # (AUTO) 0.1 10^3/uL (0.0-0.3); EOSINOPHILS % (AUTO) 1 % (0-10); HEMATOCRIT 32 % (35-52); LYMPHOCYTES # (AUTO) 2.3 10^3/uL (1.0-4.0); LYMPHOCYTES % (AUTO) 18 % (12-44); MEAN CORPUSCULAR HEMOGLOBIN 31 pg (25-34); MEAN CORPUSCULAR HGB CONC 32 g/dL (32-36); MEAN CORPUSCULAR VOLUME 99 fL (80-99); MEAN PLATELET VOLUME 8.9 fL (9.0-12.2); MONOCYTES # (AUTO) 1.2 10^3/uL (0.0-1.0); MONOCYTES % (AUTO) 10 % (0-12); NEUTROPHILS # (AUTO) 8.9 10^3/uL (1.8-7.8); NEUTROPHILS % (AUTO) 70 % (42-75); PLATELET COUNT 462 10^3/uL (130-400); WHITE BLOOD COUNT 12.7 10^3/uL (4.3-11.0)
[2022-04-25] MEDS: LEVOTHYROXINE 112 MCG (LEVOTHROID) TAB PO SCH (06:40)
[2022-04-25 06:45] LABS: CALCIUM 9.2 MG/DL (8.5-10.1); CREATININE SERUM 0.6 MG/DL (0.60-1.30)
[2022-04-25 08:00] VITALS: BP 138/83
[2022-04-25] MEDS ORDERED: NON-FORMULARY MEDICATION 1 EA EA (Levothyroxine Sodium (Levothyroxine) 112 MCG) PO SCH (09:00)
[2022-04-25] MEDS ORDERED: NON-FORMULARY MEDICATION 1 EA EA (Cariprazine Hydrochloride (Vraylar) 1.5 MG) PEG SCH (09:00)
[2022-04-25] MEDS: TOBRAMYCIN (TOBREX) 0.3% OPHTH SOLN 5 ML OU SCH ×4 (09:21→20:12)
[2022-04-25] MEDS: VALPROIC ACID SYRUP 250 MG/5 ML UDC PEG SCH ×2 (09:22→20:14)
[2022-04-25] MEDS: LACTOBACILLUS ACIDOPHILUS (PROBIOTIC) CAPSULE PO SCH ×2 (09:22→20:10)
[2022-04-25] MEDS: MULTIVITAMINS LIQUID 15 ML UDC PEG SCH (09:22)
[2022-04-25] MEDS: PANTOPRAZOLE 40 MG (PROTONIX) TAB PO SCH (09:22)
[2022-04-25] MEDS: FUROSEMIDE 40 MG (LASIX) TAB PO SCH (09:22)
[2022-04-25] MEDS: clonazePAM 0.5 MG (KlonoPIN) TAB PO SCH ×2 (09:32→20:10)
[2022-04-25 12:27] VITALS: BP 107/72
[2022-04-25 15:27] VITALS: BP 114/71
--- NOTE | 2022-04-25 15:50 | Progress Note - Hospitalist ---
Subjective HPI/CC On Admission Date Seen by Provider: Apr 25, 2022 Pt is a 57yoCF with a PMH of intellectual disability with chronic indwelling Suarez and PEG tube dependence who presented from the long term due to crying. Apparently she was treated last week for urinary tract infection with Rocephin for 3 days. This completed on April 18. The long term felt that she was not improving but as the patient is noncommunicative patient is unable t o provide any history. During my conversation with her she was sitting in bed and did not speak but did moan when I went to look at her feet. Subjective/Events-last exam Pt remains nonverbal. Ole had wound vac placed. Layinig in bad and appears comfortable. RN denies concerns. Focused Exam Lactate Level 04/23/22 17:50: Lactic Acid Level 2.05*H 04/23/22 19:57: Lactic Acid Level 2.01*H 04/23/22 22:12: Lactic Acid Level 1.85 Time of Focused Exam: 20:50 Objective Exam Vital Signs Vital Signs Date Time Temp Pulse Resp B/P (MAP) Pulse Ox O2 Delivery O2 Flow Rate FiO2 04/26/22 11:37 36.6 96 17 139/74 (95) 98 Room Air Capillary Refill : General Appearance: No Apparent Distress, Chronically ill Respiratory: Lungs Clear, No Respiratory Distress Cardiovascular: Regular Rate, Rhythm, No Murmur Neurologic/Psychiatric: Alert, Other (nonverbal) Results/Procedures Lab Laboratory Tests 04/26/22 05:42 Patient resulted labs reviewed. Imaging: Reviewed Imaging Report Assessment/Plan Assessment and Plan Assess & Plan/Chief Complaint Severe Sepsis Osteomyelitis UTI- due to indwelling suarez cath- POA Continue on IV abx Surgery and Wound care consulted, appreciate recs Await cultures Wound vac placed Intellectual disability PEG dependent Chronic indwelling suarez Continue home tube feeds Await cultures for Urine Hypothyroidism Continue home Synthroid Diagnosis/Problems Diagnosis/Problems (1) Hypothyroidism Qualifiers: Hypothyroidism type: acquired Qualified Codes: E03.9 - Hypothyroidism, unspecified (2) Severe sepsis (3) Sepsis Status: Acute Qualifiers: Sepsis type: sepsis due to unspecified organism Sepsis acute organ dysfunction status: with acute organ dysfunction Severe sepsis acute organ dysfunction type: unspecified Severe sepsis shock status: without septic shock Qualified Codes: A41.9 - Sepsis, unspecified organism; R65.20 - Severe sepsis without septic shock (4) Osteomyelitis (5) Urinary tract infection Status: Acute Qualifiers: Urinary tract infection type: site unspecified Hematuria presence: without hematuria Qualified Codes: N39.0 - Urinary tract infection, site not specified (6) Decubitus ulcer of coccygeal region, stage 4 Status: Acute (7) Conjunctivitis Status: Acute CHARAN WATERS MD Apr 25, 2022 15:50
[2022-04-25 19:02] VITALS: BP 102/69
[2022-04-25] MEDS: MELATONIN 10 MG TABLET PO SCH (20:10)
[2022-04-25] MEDS: DOCUSATE SODIUM 100 MG (COLACE) CAP PO SCH (20:10)
[2022-04-26] VITALS (7 sets, daily range): BP systolic 120–155; BP diastolic 64–74
[2022-04-26] MEDS: LEVOTHYROXINE 112 MCG (LEVOTHROID) TAB PO SCH (05:48)
[2022-04-26] MEDS: LACTATED RINGERS 1,000 ML IV SCH ×4 (05:48→19:48)
[2022-04-26 06:06] LABS: HEMATOCRIT 30 % (35-52); HEMOGLOBIN 9.4 g/dL (11.5-16.0); MEAN CORPUSCULAR HEMOGLOBIN 31 pg (25-34); MEAN CORPUSCULAR HGB CONC 31 g/dL (32-36); MEAN CORPUSCULAR VOLUME 99 fL (80-99); MEAN PLATELET VOLUME 9.2 fL (9.0-12.2); PLATELET COUNT 441 10^3/uL (130-400); WHITE BLOOD COUNT 14.5 10^3/uL (4.3-11.0)
[2022-04-26 06:37] LABS: CALCIUM 8.8 MG/DL (8.5-10.1); CREATININE SERUM 0.57 MG/DL (0.60-1.30); POTASSIUM 3.8 MMOL/L (3.6-5.0)
[2022-04-26] MEDS: FUROSEMIDE 40 MG (LASIX) TAB PO SCH (09:45)
[2022-04-26] MEDS: MULTIVITAMINS LIQUID 15 ML UDC PEG SCH (09:45)
[2022-04-26] MEDS: LACTOBACILLUS ACIDOPHILUS (PROBIOTIC) CAPSULE PO SCH ×2 (09:45→19:49)
[2022-04-26] MEDS: PANTOPRAZOLE 40 MG (PROTONIX) TAB PO SCH (09:45)
[2022-04-26] MEDS: clonazePAM 0.5 MG (KlonoPIN) TAB PO SCH ×2 (09:46→19:50)
[2022-04-26] MEDS: TOBRAMYCIN (TOBREX) 0.3% OPHTH SOLN 5 ML OU SCH ×3 (09:46→19:51)
[2022-04-26] MEDS: VALPROIC ACID SYRUP 250 MG/5 ML UDC PEG SCH ×2 (09:46→19:49)
--- NOTE | 2022-04-26 12:14 | Progress Note - Hospitalist ---
Subjective HPI/CC On Admission Date Seen by Provider: Apr 26, 2022 Pt is a 57yoCF with a PMH of intellectual disability with chronic indwelling Suarez and PEG tube dependence who [facility]. Apparently she was treated last week for urinary tract infection with Rocephin for 3 days. This completed on April 18. The detention felt that she was not improving but as the patient is noncommunicative patient is unable t o provide any history. During my conversation with her she was sitting in bed and did not speak but did moan when I went to look at her feet. Subjective/Events-last exam Pt was actually able to say she was "feeling good" but then otherwise did not speak. She has a stuffed animal in bed that she kisses frequently throughout the exam. Focused Exam Lactate Level 04/23/22 17:50: Lactic Acid Level 2.05*H 04/23/22 19:57: Lactic Acid Level 2.01*H 04/23/22 22:12: Lactic Acid Level 1.85 Time of Focused Exam: 20:50 Objective Exam Vital Signs Vital Signs Date Time Temp Pulse Resp B/P (MAP) Pulse Ox O2 Delivery O2 Flow Rate FiO2 04/26/22 11:37 36.6 96 17 139/74 (95) 98 Room Air Capillary Refill : General Appearance: No Apparent Distress, Chronically ill, Obese Respiratory: Lungs Clear, No Respiratory Distress Cardiovascular: Regular Rate, Rhythm, No Murmur Neurologic/Psychiatric: Alert, Oriented x3 Results/Procedures Lab Laboratory Tests 04/26/22 05:42 Patient resulted labs reviewed. Imaging: Reviewed Imaging Report Assessment/Plan Assessment and Plan Assess & Plan/Chief Complaint Severe Sepsis Osteomyelitis UTI- due to indwelling suarez cath- POA Continue on IV abx Surgery and Wound care consulted, appreciate recs Cultures with mixed bacterial maria and pseudomonas in wound and pseudomonas and enterococcus in urine Wound vac placed Intellectual disability PEG dependent Chronic indwelling suarez Continue home tube feeds Hypothyroidism Continue home Synthroid Diagnosis/Problems Diagnosis/Problems (1) Hypothyroidism Qualifiers: Hypothyroidism type: acquired Qualified Codes: E03.9 - Hypothyroidism, unspecified (2) Severe sepsis (3) Sepsis Status: Acute Qualifiers: Sepsis type: sepsis due to unspecified organism Sepsis acute organ dysfunction status: with acute organ dysfunction Severe sepsis acute organ dysfunction type: unspecified Severe sepsis shock status: without septic shock Qualified Codes: A41.9 - Sepsis, unspecified organism; R65.20 - Severe sepsis without septic shock (4) Osteomyelitis (5) Urinary tract infection Status: Acute Qualifiers: Urinary tract infection type: site unspecified Hematuria presence: without hematuria Qualified Codes: N39.0 - Urinary tract infection, site not specified (6) Decubitus ulcer of coccygeal region, stage 4 Status: Acute (7) Conjunctivitis Status: Acute CHARAN WATERS MD Apr 26, 2022 12:14
[2022-04-26] MEDS: DOCUSATE SODIUM 100 MG (COLACE) CAP PO SCH (19:46)
[2022-04-26] MEDS: MELATONIN 10 MG TABLET PO SCH (19:49)
[2022-04-27] MEDS: LACTATED RINGERS 1,000 ML IV SCH ×4 (02:14→22:16)
[2022-04-27 03:42] VITALS: BP 119/71
[2022-04-27] MEDS: LEVOTHYROXINE 112 MCG (LEVOTHROID) TAB PO SCH (05:26)
[2022-04-27 07:33] VITALS: BP 114/72
[2022-04-27] MEDS: clonazePAM 0.5 MG (KlonoPIN) TAB PO SCH ×2 (08:24→20:04)
[2022-04-27] MEDS: FUROSEMIDE 40 MG (LASIX) TAB PO SCH (08:25)
[2022-04-27] MEDS: PANTOPRAZOLE 40 MG (PROTONIX) TAB PO SCH (08:25)
[2022-04-27] MEDS: MULTIVITAMINS LIQUID 15 ML UDC PEG SCH (08:25)
[2022-04-27] MEDS: LACTOBACILLUS ACIDOPHILUS (PROBIOTIC) CAPSULE PO SCH ×2 (08:25→20:06)
[2022-04-27] MEDS: VALPROIC ACID SYRUP 250 MG/5 ML UDC PEG SCH ×2 (08:25→20:04)
[2022-04-27] MEDS: TOBRAMYCIN (TOBREX) 0.3% OPHTH SOLN 5 ML OU SCH ×4 (08:26→20:03)
--- NOTE | 2022-04-27 11:23 | Progress Note - Hospitalist ---
Subjective HPI/CC On Admission Date Seen by Provider: Apr 27, 2022 Pt is a 57yoCF with a PMH of intellectual disability with chronic indwelling Suarez and PEG tube dependence [facility]. Apparently she was treated last week for urinary tract infection with Rocephin for 3 days. This completed on April 18. The [facility]itentiary felt that she was not improving but as the patient is noncommunicative patient is unable to provide any history. During my conversation with her she was sitting in bed and did not speak but did moan when I went to look at her feet. Subjective/Events-last exam Pt layingin bed after just getting a bath. Moaning. Offered stuffed monkey u nicorn and she calms down and kisses it again. Did not communicate other than moaning. Focused Exam Time of Focused Exam: 20:50 Objective Exam Vital Signs Vital Signs Date Time Temp Pulse Resp B/P (MAP) Pulse Ox O2 Delivery O2 Flow Rate FiO2 04/27/22 08:26 Room Air 04/27/22 07:33 37.2 101 20 114/72 (86) 97 Capillary Refill : General Appearance: Anxious, Chronically ill Respiratory: Lungs Clear, No Respiratory Distress Cardiovascular: Regular Rate, Rhythm, No Murmur Gastrointestinal: Normal Bowel Sounds, Soft Neurologic/Psychiatric: Alert, Other (did not speak) Results/Procedures Lab Patient resulted labs reviewed. Imaging: Reviewed Imaging Report Assessment/Plan Assessment and Plan Assess & Plan/Chief Complaint Severe Sepsis Osteomyelitis Continue on IV abx Surgery and Wound care consulted, appreciate recs Cultures with mixed bacterial maria and pseudomonas in wound and pseudomonas and enterococcus in urine though low CFUs so likely actually just colonized Wound vac placed Intellectual disability PEG dependent Chronic indwelling suarez Continue home tube feeds Hypothyroidism Continue home Synthroid Diagnosis/Problems Diagnosis/Problems (1) Hypothyroidism Qualifiers: Hypothyroidism type: acquired Qualified Codes: E03.9 - Hypothyroidism, unspecified (2) Severe sepsis (3) Sepsis Status: Acute Qualifiers: Sepsis type: sepsis due to unspecified organism Sepsis acute organ dysfunction status: with acute organ dysfunction Severe sepsis acute organ dysfunction type: unspecified Severe sepsis shock status: without septic shock Qualified Codes: A41.9 - Sepsis, unspecified organism; R65.20 - Severe sepsis without septic shock (4) Osteomyelitis (5) Urinary tract infection Status: Acute Qualifiers: Urinary tract infection type: site unspecified Hematuria presence: without hematuria Qualified Codes: N39.0 - Urinary tract infection, site not specified (6) Decubitus ulcer of coccygeal region, stage 4 Status: Acute (7) Conjunctivitis Status: Acute CHARAN WATERS MD Apr 27, 2022 11:22
[2022-04-27 11:27] VITALS: BP 132/83
[2022-04-27 16:16] VITALS: BP 118/65
[2022-04-27] MEDS: MELATONIN 10 MG TABLET PO SCH (20:04)
[2022-04-27] MEDS: DOCUSATE SODIUM 100 MG (COLACE) CAP PO SCH (20:04)
[2022-04-27 20:11] VITALS: BP 129/70
[2022-04-27] MEDS: HYDROcodone/APAP 5 MG/325 MG (LORTAB) TAB PO PRN (22:17)
[2022-04-27 23:27] VITALS: BP 125/69
[2022-04-28 04:43] VITALS: BP 116/71
[2022-04-28] MEDS: LACTATED RINGERS 1,000 ML IV SCH ×2 (04:44→11:36)
[2022-04-28] MEDS: LEVOTHYROXINE 112 MCG (LEVOTHROID) TAB PO SCH (06:09)
[2022-04-28 07:50] VITALS: BP 109/68
[2022-04-28] MEDS: LACTOBACILLUS ACIDOPHILUS (PROBIOTIC) CAPSULE PO SCH (08:56)
[2022-04-28] MEDS: PANTOPRAZOLE 40 MG (PROTONIX) TAB PO SCH (08:56)
[2022-04-28] MEDS: FUROSEMIDE 40 MG (LASIX) TAB PO SCH (08:56)
[2022-04-28] MEDS: clonazePAM 0.5 MG (KlonoPIN) TAB PO SCH (08:56)
[2022-04-28] MEDS: MULTIVITAMINS LIQUID 15 ML UDC PEG SCH (08:56)
[2022-04-28] MEDS: VALPROIC ACID SYRUP 250 MG/5 ML UDC PEG SCH (08:56)
[2022-04-28] MEDS: TOBRAMYCIN (TOBREX) 0.3% OPHTH SOLN 5 ML OU SCH ×2 (09:00→13:44)
[2022-04-28] MEDS: HYDROcodone/APAP 5 MG/325 MG (LORTAB) TAB PO PRN (11:32)
[2022-04-28 11:42] VITALS: BP 108/63
[2022-04-28] MEDS ORDERED: LEVO750T39 PO (11:45)
--- NOTE | 2022-04-28 11:47 | Discharge Inst-Skilled Nursing ---
Discharge Inst-Skilled NF Reconcile Patient Problems Problems Reviewed?: Yes Consult/Follow Up/Orders Follow Up Appt.: next [facility] rounds Skilled NF Admit to: [facility] Certification (SNF) I certify that SNF services are required to be given on an inpatient basis because of the above named patient's need for alf care on a continuing basis for the conditions(s) for which he/she was receiving inpatient hospital services prior to his/her transfer to the SNF. [facility] Facility Order: Nursing Services, Cd Manufacturing Supervisor-Evaluate & Treat, Physical Therapy-Evaluate & Treat, Wound Care-Eval/Treat Oxygen Delivery Method: Room Air Discharge Diet: Other Diet (NPO, tube feeds) Daily Activity as Tolerated: Yes Resuscitation Status: Full Code New & Resume Previous Orders Carmen Brown Apr 28, 2022 11:46 CARMEN BROWN MD Apr 28, 2022 11:47
--- NOTE | 2022-04-28 14:51 | Discharge Summary ---
Discharge Summary Hospital Course Problems/Dx: (1) Severe sepsis Status: Acute (2) Osteomyelitis Status: Acute (3) Decubitus ulcer of coccygeal region, stage 4 Status: Acute (4) Urinary tract infection Status: Acute Qualifiers: Qualified Codes: N39.0 - Urinary tract infection, site not specified (5) Hypothyroidism Qualifiers: Qualified Codes: E03.9 - Hypothyroidism, unspecified (6) Conjunctivitis Status: Acute (7) Cognitive impairment Status: Chronic Hospital Course Date of Admission: Apr 23, 2022 at 22:59 Admission Diagnosis : Severe sepsis due to osteomyelitis, stage IV sacral decubitus ulcer Family Physician/Provider: John Pickering MD Date of Discharge: 04/28/22 Discharge Diagnosis: Severe sepsis due to osteomyeltis, stage IV sacral decubitus ulcer Hospital Course: Latoya Leon is a 57 year old female with cognitive impairment who was admitted with severe sepsis. She was found to have osteomyelitis secondary to stage IV sacral decubitus ulcer. She also had a UTI related to chronic indwelling suarez c atheter. She was treated with IV antibiotics. Surgery was consulted and recommended medical management due to high risk or recurrence and infection. Wound care was consulted and she was started on a wound vac. She will complete a course of antibiotics at [facility]. She will continue the wound vac. She will follow with wound care. She was discharged in fair condition. Labs and Pending Lab Test: Microbiology 04/24/22 Gram Stain - Final, Complete 04/24/22 Wound Culture - Final, Complete Pseudomonas aeruginosa Acinetobacter baumannii/c. com Gram Pos Mixed Bacterial Maia 04/23/22 Blood Culture - Preliminary, Resulted No growth 04/23/22 Urine Culture - Final, Complete Enterococcus faecium Pseudomonas aeruginosa Home Meds Active Levofloxacin 750 Mg Tablet 750 Mg PO DAILY 14 Days Reported Levothyroxine (Levothyroxine Sodium) 112 Mcg Capsule 112 Mcg PO DAILY Nystatin-Triamcinolone Cream (Nystatin/Triamcinolone) 100,000 Unit/Gram-0.1 % Cr 1 Applic TP Q8H PRN Children's Acetaminophen (Acetaminophen) 160 Mg/5 Ml Liquid 31.23 Ml PEG Q8H PRN Tobramycin 0.3 % Drops 2 Drops OU QID 7 Days STARTED 04-19-2022 Vashe Wound Solution (Sodium Chlor/Hypochlorous Acid) 0.033 % Irrig.soln 1 Applic TOP BID Valproic Acid (Valproic Acid (As Sodium Salt)) 250 Mg/5 Ml Solution 20 Ml PEG BID Acidophilus (Lactobacillus Acidophilus) 1 Each Capsule 1 Each PO BID Elias Packet (Arginine/Glutamine/Calcium Hmb) 7 Gram-7 Gram-1.5 Gram Powd.pack 1 Each PEG BID MIX WITH 8OZ OF WATER AND ADMINISTER PER PEG TUBE Hydrocodone-Acetamin 5-325 mg (Hydrocodone/Acetaminophen) 5 Mg-325 Mg Tablet 1 Tab PEG BID PRN Clonazepam 0.5 Mg Tablet 0.25 Mg PO BID TAKES 1/2 OF (0.5MG) TAB CRUSH AND MIX WITH PUDDING Vraylar (Cariprazine Hydrochloride) 1.5 Mg Capsule 1.5 Mg PEG DAILY Docusate Sodium 100 Mg Tablet 100 Mg PO HS CRUSH AND MIX WITH PUDDING Pantoprazole Sodium 40 Mg Tablet.dr 40 Mg PO DAILY Multi-Nadeen Liquid (Multivit-Minerals/Ferrous Gluc) 9 Mg Iron/15 Ml Liquid 15 Ml PEG DAILY Melatonin 5 Mg Tablet 5 Mg PO HS CRUSH AND MIX WITH PUDDING Furosemide 40 Mg Tablet 40 Mg PO DAILY CRUSH AND MIX WITH PUDDING Assessment/Pt Instructions See instructions Discharge Planning: >30 minutes discharge planning Discharge Instructions Discharge Diet: No Restrictions, Other Diet (NPO, tube feeds) Activity as Tolerated: Yes Consultations Surgery, wound care Discharge Physical Examination Vital Signs Vital Signs Date Time Temp Pulse Resp B/P (MAP) Pulse Ox O2 Delivery O2 Flow Rate FiO2 04/28/22 12:51 94 04/28/22 11:42 36.9 20 108/63 (78) 95 Room Air General Appearance: No Apparent Distress, Obese Respiratory: Lungs Clear, No Respiratory Distress Cardiovascular: Regular Rate, Rhythm, No Edema, No Murmur Gastrointestinal: Normal Bowel Sounds, Soft Extremity: Normal Inspection, No Pedal Edema Skin: Other (sacral ulcer, wound vac) Neurologic/Psychiatric: Alert, Normal Mood/Affect Allergies: Coded Allergies: cranberry (Verified Allergy, Unknown, 04/23/22) Copy Copies To 1: JOHN PICKERING MD Discharge Summary Date of Admission Apr 23, 2022 at 22:59 Date of Discharge Discharge Date: Apr 28, 2022 Discharge Time: 14:50 Admission Diagnosis Severe Sepsis Osteomyelitis Consults/Procedures Consulations Surgery, wound care Discharge Diagnosis (1) Severe sepsis Status: Acute (2) Osteomyelitis Status: Acute (3) Decubitus ulcer of coccygeal region, stage 4 Status: Acute (4) Hypothyroidism Qualifiers: Qualified Codes: E03.9 - Hypothyroidism, unspecified (5) Urinary tract infection Status: Acute Qualifiers: Qualified Codes: N39.0 - Urinary tract infection, site not specified (6) Conjunctivitis Status: Acute ELY BROWN MD Apr 28, 2022 14:35
[2022-04-28 16:51] VITALS: BP 111/59
[2022-04-28 17:24] VITALS: BP 111/59
== END 2022-04-28 17:24 | DRG 871 ==
LOC: EDUNIT# 17:15 → ER 17:16 → 4TH 22:59
PROVIDERS: ADMIT Internal Medicine; ATTEND Internal Medicine
DX: A41.9 Sepsis, unspecified organism (principal); L89.154 Pressure ulcer of sacral region, stage 4; T83.518A Infection and inflammatory reaction due to other urinary catheter, initial encounter; N39.0 Urinary tract infection, site not specified; M46.28 Osteomyelitis of vertebra, sacral and sacrococcygeal region; F72 Severe intellectual disabilities; E46 Unspecified protein-calorie malnutrition; R65.20 Severe sepsis without septic shock; Z20.822 Contact with and (suspected) exposure to COVID-19; H10.9 Unspecified conjunctivitis; U09.9 Post COVID-19 condition, unspecified; Z68.30 Body mass index [BMI] 30.0-30.9, adult; R15.9 Full incontinence of feces; E66.9 Obesity, unspecified; E03.9 Hypothyroidism, unspecified; Z93.1 Gastrostomy status; Z91.018 Allergy to other foods
CPT/HCPCS: 36415; 71045; 74177; 80048; 80053; 81000; 83605; 84134; 84145; 85007; 85025; 85027; 85610; 85730; 86141; 87040; 87070; 87077; 87088; 87186; 87205; 87636

== ENCOUNTER → 2022-05-02 | Outpatient (CLI) | payer MEDICARE, MEDICAID ==
[~2022-05-02] MED LIST changes: +ACET160L34 PEG; +ACHD5005 PEG; +ARGI1POW4 PEG; +CARI1.5C PEG; -CATHETER FLUSH 10 ML SYR IV PRN; +CLON0.5T4 PO; +DOCU100T2 PO; +FURO40TA4 PO; -HOLD METFORMIN - RECEIVED CONTRAST 20 ML VIAL IV SCH; -IOHEXOL 350 MG/ML 100 ML (OMNIPAQUE 350) VIAL IV ONE; +LACT1CAP28 PO; +LEVO112C4 PO; +LEVO750T39 PO; +MELA5TAB14 PO; +MULT9LIQ9 PEG; -NS 100 ML (IVPB) BAG IV ONE; +NSTR15C TP; +PANT40TA52 PO; +TBR.3OP51 OU; +VALP250S3 PEG; +[UNRECOGNIZED DRUG - CODE] TOP
== END ==
LOC: WOUNDCARE 08:49
PROVIDERS: ATTEND Family Medicine
DX: L89.154 Pressure ulcer of sacral region, stage 4 (principal); M46.28 Osteomyelitis of vertebra, sacral and sacrococcygeal region; E66.01 Morbid (severe) obesity due to excess calories; F72 Severe intellectual disabilities; U09.9 Post COVID-19 condition, unspecified; D46.4 Refractory anemia, unspecified; E55.9 Vitamin D deficiency, unspecified; L21.8 Other seborrheic dermatitis; I96 Gangrene, not elsewhere classified
CPT/HCPCS: 11042; A6260; G0463

== ENCOUNTER → 2022-05-06 | Outpatient (CLI) | payer MEDICARE, MEDICAID | LOC: WOUNDCARE 08:54 | PROVIDERS: ATTEND Family Medicine | DX: L89.154 Pressure ulcer of sacral region, stage 4 (principal); M46.28 Osteomyelitis of vertebra, sacral and sacrococcygeal region; E66.01 Morbid (severe) obesity due to excess calories; U09.9 Post COVID-19 condition, unspecified; E55.9 Vitamin D deficiency, unspecified; F72 Severe intellectual disabilities; D46.9 Myelodysplastic syndrome, unspecified; L21.9 Seborrheic dermatitis, unspecified; B37.2 Candidiasis of skin and nail; I96 Gangrene, not elsewhere classified | CPT/HCPCS: 11042; A6212; G0463 ==

== ENCOUNTER → 2022-05-15 | Outpatient (CLI) | payer MEDICARE, MEDICAID ==
[~2022-05-15] MED LIST changes: +LEVO750T PO; -LEVO750T39 PO; -NSTR15C TP; +NYST15CR36 TP
== END ==
LOC: WOUNDCARE 09:27
PROVIDERS: ATTEND Family Medicine
DX: L89.154 Pressure ulcer of sacral region, stage 4 (principal); M46.28 Osteomyelitis of vertebra, sacral and sacrococcygeal region; E66.01 Morbid (severe) obesity due to excess calories; F72 Severe intellectual disabilities; U09.9 Post COVID-19 condition, unspecified; D46.4 Refractory anemia, unspecified; E55.9 Vitamin D deficiency, unspecified; L21.8 Other seborrheic dermatitis; I96 Gangrene, not elsewhere classified
CPT/HCPCS: 11042; A6197; A6212; G0463

== ENCOUNTER → 2022-05-23 | Outpatient (CLI) | payer MEDICARE, MEDICAID | LOC: WOUNDCARE 09:03 | PROVIDERS: ATTEND Family Medicine | DX: L89.154 Pressure ulcer of sacral region, stage 4 (principal); M46.28 Osteomyelitis of vertebra, sacral and sacrococcygeal region; E66.01 Morbid (severe) obesity due to excess calories; U09.9 Post COVID-19 condition, unspecified; F72 Severe intellectual disabilities; D46.4 Refractory anemia, unspecified; E55.9 Vitamin D deficiency, unspecified; L21.9 Seborrheic dermatitis, unspecified; I96 Gangrene, not elsewhere classified | CPT/HCPCS: 11042; A6212; G0463 ==

== ENCOUNTER → 2022-05-30 | Outpatient (CLI) | payer MEDICARE, MEDICAID | LOC: WOUNDCARE 10:44 | PROVIDERS: ATTEND Family Medicine | DX: L89.154 Pressure ulcer of sacral region, stage 4 (principal); M46.28 Osteomyelitis of vertebra, sacral and sacrococcygeal region; E66.01 Morbid (severe) obesity due to excess calories; F72 Severe intellectual disabilities; U09.9 Post COVID-19 condition, unspecified; D46.4 Refractory anemia, unspecified; E55.9 Vitamin D deficiency, unspecified; L21.8 Other seborrheic dermatitis; I96 Gangrene, not elsewhere classified | CPT/HCPCS: 11042; A6212; G0463 ==

== ENCOUNTER → 2022-06-09 | Outpatient (CLI) | payer MEDICARE, MEDICAID | LOC: WOUNDCARE 14:24 | PROVIDERS: ATTEND Family Medicine | DX: L89.154 Pressure ulcer of sacral region, stage 4 (principal); M46.28 Osteomyelitis of vertebra, sacral and sacrococcygeal region; E66.01 Morbid (severe) obesity due to excess calories; F72 Severe intellectual disabilities; U09.9 Post COVID-19 condition, unspecified; E55.9 Vitamin D deficiency, unspecified; D46.4 Refractory anemia, unspecified; L21.9 Seborrheic dermatitis, unspecified; I96 Gangrene, not elsewhere classified | CPT/HCPCS: 11042; A6197; A6212; G0463 ==

== ENCOUNTER → 2022-06-18 | Outpatient (CLI) | payer MEDICARE, MEDICAID | LOC: WOUNDCARE 13:02 | PROVIDERS: ATTEND Family Medicine | DX: L89.154 Pressure ulcer of sacral region, stage 4 (principal); M46.28 Osteomyelitis of vertebra, sacral and sacrococcygeal region; E66.01 Morbid (severe) obesity due to excess calories; F72 Severe intellectual disabilities; U09.9 Post COVID-19 condition, unspecified; D46.4 Refractory anemia, unspecified; E55.9 Vitamin D deficiency, unspecified; L21.8 Other seborrheic dermatitis; I96 Gangrene, not elsewhere classified | CPT/HCPCS: 11042; A6212; G0463 ==

== ENCOUNTER → 2022-06-25 | Outpatient (CLI) | payer MEDICARE, MEDICAID | LOC: WOUNDCARE 09:09 | PROVIDERS: ATTEND Family Medicine | DX: L89.154 Pressure ulcer of sacral region, stage 4 (principal); M46.28 Osteomyelitis of vertebra, sacral and sacrococcygeal region; E66.01 Morbid (severe) obesity due to excess calories; F72 Severe intellectual disabilities; U09.9 Post COVID-19 condition, unspecified; D46.4 Refractory anemia, unspecified; E55.9 Vitamin D deficiency, unspecified; L21.8 Other seborrheic dermatitis; I96 Gangrene, not elsewhere classified | CPT/HCPCS: 11042; A6212; G0463 ==

== ENCOUNTER → 2022-07-03 | Outpatient (CLI) | payer MEDICARE, MEDICAID | LOC: WOUNDCARE 09:38 | PROVIDERS: ATTEND Family Medicine | DX: L89.154 Pressure ulcer of sacral region, stage 4 (principal); M46.28 Osteomyelitis of vertebra, sacral and sacrococcygeal region; E66.01 Morbid (severe) obesity due to excess calories; F72 Severe intellectual disabilities; U09.9 Post COVID-19 condition, unspecified; D46.4 Refractory anemia, unspecified; E55.9 Vitamin D deficiency, unspecified; L21.8 Other seborrheic dermatitis; B37.2 Candidiasis of skin and nail; I96 Gangrene, not elsewhere classified | CPT/HCPCS: 11042; A6212; G0463 ==

== ENCOUNTER → 2022-07-10 | Outpatient (CLI) | payer MEDICARE, MEDICAID ==
[2022-07-10 13:48] LABS: ABSOLUTE RETIC # 129 10e9/uL (24-90); BASOPHILS % (AUTO) 0 % (0-10); EOSINOPHILS # (AUTO) 0.2 10^3/uL (0.0-0.3); EOSINOPHILS % (AUTO) 1 % (0-10); HEMATOCRIT 43 % (35-52); HEMOGLOBIN 14.1 g/dL (11.5-16.0); LYMPHOCYTES # (AUTO) 3.6 10^3/uL (1.0-4.0); LYMPHOCYTES % (AUTO) 23 % (12-44); MEAN CORPUSCULAR HEMOGLOBIN 31 pg (25-34); MEAN CORPUSCULAR HGB CONC 33 g/dL (32-36); MEAN CORPUSCULAR VOLUME 97 fL (80-99); MEAN PLATELET VOLUME 9.8 fL (9.0-12.2); MONOCYTES # (AUTO) 1.7 10^3/uL (0.0-1.0); MONOCYTES % (AUTO) 10 % (0-12); NEUTROPHILS # (AUTO) 10.5 10^3/uL (1.8-7.8); NEUTROPHILS % (AUTO) 65 % (42-75); PLATELET COUNT 412 10^3/uL (130-400); RETICULOCYTE % 2.87 % (0.50-2.40)
[2022-07-10 13:58] LABS: EOSINOPHILS % (MANUAL) 2 %; LYMPHOCYTES % (MANUAL) 25 %; MONOCYTES % (MANUAL) 10 %; NEUTROPHILS % (MANUAL) 63 %; RBC MORPH NORMAL
== END ==
LOC: LAB 13:26
PROVIDERS: ATTEND Nurse Practitioner Family
DX: D72.829 Elevated white blood cell count, unspecified (principal)
CPT/HCPCS: 36415; 85007; 85027; 85045; 85055

== ENCOUNTER → 2022-07-10 | Outpatient (CLI) | payer MEDICARE, MEDICAID | LOC: WOUNDCARE 13:40 | PROVIDERS: ATTEND Family Medicine | DX: L89.154 Pressure ulcer of sacral region, stage 4 (principal); M46.28 Osteomyelitis of vertebra, sacral and sacrococcygeal region; E66.01 Morbid (severe) obesity due to excess calories; F72 Severe intellectual disabilities; U09.9 Post COVID-19 condition, unspecified; D46.4 Refractory anemia, unspecified; E55.9 Vitamin D deficiency, unspecified; L21.9 Seborrheic dermatitis, unspecified; B37.2 Candidiasis of skin and nail; I96 Gangrene, not elsewhere classified | CPT/HCPCS: 11042; A6212; G0463 ==

== ENCOUNTER → 2022-07-14 | Outpatient (CLI) | payer MEDICARE, MEDICAID | LOC: WOUNDCARE 13:36 | PROVIDERS: ATTEND Family Medicine | DX: I96 Gangrene, not elsewhere classified (principal); L89.154 Pressure ulcer of sacral region, stage 4; M46.28 Osteomyelitis of vertebra, sacral and sacrococcygeal region; E66.01 Morbid (severe) obesity due to excess calories; F72 Severe intellectual disabilities; D46.4 Refractory anemia, unspecified; E55.9 Vitamin D deficiency, unspecified; L21.8 Other seborrheic dermatitis | CPT/HCPCS: 11042; 87070; 87205; G0463 ==

== ENCOUNTER 2022-07-18 14:33 | Inpatient (IN) | payer MEDICARE, MEDICAID ==
[~2022-07-18] VITALS: Ht 167 cm; Wt 91.0 kg
[~2022-07-18 14:33] MED LIST changes: +DOCU100T2 PEG; -DOCU100T2 PO
[2022-07-18] MEDS ORDERED: NS IV 1000 ML 1,000 ML IV SCH ×2 (14:45→16:00)
[2022-07-18 15:10] LABS: BASOPHILS % (AUTO) 0 % (0-10); EOSINOPHILS # (AUTO) 0.1 10^3/uL (0.0-0.3); EOSINOPHILS % (AUTO) 0 % (0-10); HEMATOCRIT 44 % (35-52); HEMOGLOBIN 14.2 g/dL (11.5-16.0); LYMPHOCYTES # (AUTO) 4.5 X 10^3 (1.0-4.0); LYMPHOCYTES % (AUTO) 23 % (12-44); MEAN CORPUSCULAR HEMOGLOBIN 31 pg (25-34); MEAN CORPUSCULAR HGB CONC 33 g/dL (32-36); MEAN CORPUSCULAR VOLUME 96 fL (80-99); MONOCYTES # (AUTO) 1.8 X 10^3 (0.0-1.0); MONOCYTES % (AUTO) 10 % (0-12); NEUTROPHILS # (AUTO) 12.5 X 10^3 (1.8-7.8); NEUTROPHILS % (AUTO) 66 % (42-75); PLATELET COUNT 512 10^3/uL (130-400)
[2022-07-18 15:23] LABS: ABG BASE EXCESS 8.6 MMOL/L (-2.5-2.5); ABG OXYGEN SATURATION 82 % (94-100); ABG PCO2 41 MMHG (35-45); ABG PH 7.51 (7.37-7.43); ABG PO2 43 MMHG (79-93); ABG TCO2 33.3 MMOL/L (21.0-31.0)
[2022-07-18 15:24] LABS: INSPIRED O2 15; PATIENT TEMP 37.4; VENTILATOR NO
[2022-07-18 15:26] LABS: ATYPICAL LYMPHOCYTES 1 %; BAND NEUTROPHILS 1 %; EOSINOPHILS % (MANUAL) 1 %; LYMPHOCYTES % (MANUAL) 22 %; MONOCYTES % (MANUAL) 8 %; MYELOCYTES % 1 %; NEUTROPHILS % (MANUAL) 66 %; RBC MORPH NORMAL
[2022-07-18 15:31] LABS: ALBUMIN 3.1 GM/DL (3.2-4.5)
[2022-07-18 15:32] LABS: POTASSIUM 3.8 MMOL/L (3.6-5.0)
[2022-07-18 15:33] LABS: CALCIUM 9.8 MG/DL (8.5-10.1)
[2022-07-18 15:34] LABS: INR 0.9 (0.8-1.4); TOTAL PROTEIN 8.2 GM/DL (6.4-8.2)
[2022-07-18 15:36] LABS: BILIRUBIN,TOTAL 0.3 MG/DL (0.1-1.0)
[2022-07-18 15:38] LABS: CREATININE SERUM 0.68 MG/DL (0.60-1.30)
[2022-07-18] MEDS ORDERED: PROPOFOL DRIP (ICU) 100 ML IV ONE ×2 (15:38→20:03)
[2022-07-18 15:45] VITALS: BP 120/89
[2022-07-18] MEDS ORDERED: PIPERACILLIN SODIUM/TAZOBACTAM 4.5 GM in NS (IVPB) 100 ML IV ONE (16:00)
[2022-07-18] MEDS ORDERED: VANCOMYCIN INJECTION 1,000 MG in NS (IVPB) 250 ML IV ONE (16:00)
[2022-07-18 16:13] LABS: BILIRUBIN,URINE NEGATIVE (NEGATIVE); CLARITY,URINE CLEAR; COLOR,URINE YELLOW; GLUCOSE, URINE (UA) NEGATIVE (NEGATIVE); KETONES,URINE NEGATIVE (NEGATIVE); LEUKOCYTE ESTERASE ,URINE 2+ (NEGATIVE); NITRITE,URINE POSITIVE (NEGATIVE); PROTEIN,URINE TRACE (NEGATIVE)
--- NOTE | 2022-07-18 16:17 | Diagnostic Imaging Report ---
CHEST 1 VIEW, AP/PA ONLY INDICATION: Altered mental status and hypoxia. COMPARISON: 04/23/2022. FINDINGS: ET tube has tip 5 cm above the josh. There is volume loss within the right lung with rightward mediastinal shift. Right pleural effusion is present. Left lung is well aerated. No pneumothorax. Normal heart size. IMPRESSION: 1. Well-positioned ET tube. 2. Volume loss within the right hemithorax may be due to mucous plugging and areas of atelectasis. 3. Small right pleural effusion. Dictated by: Dictated on workstation # [id number]
[2022-07-18 16:18] LABS: ABG BASE EXCESS 7.4 MMOL/L (-2.5-2.5); ABG OXYGEN SATURATION 86 % (94-100); ABG PCO2 43 MMHG (35-45); ABG PH 7.48 (7.37-7.43); ABG PO2 50 MMHG (79-93); ABG TCO2 32.4 MMOL/L (21.0-31.0); ALLENS TEST YES-POS; INSPIRED O2 1; PATIENT TEMP 37.4; VENTILATOR YES
[2022-07-18 16:23] LABS: BACTERIA,URINE MODERATE /HPF; CALCIUM OXALATE CRYSTALS,UR RARE /LPF; RBC,URINE 0-2 /HPF; WBC,URINE 25-50 /HPF
--- NOTE | 2022-07-18 17:13 | History & Physical-Hospitalist ---
History of Present Illness HPI/Chief Complaint Patient is a 57yo female with a past medical history of intellectual disability with chronic indwelling Suarez and PEG tube dependence presented to the emergency department due to altered mental status and hypoxia. She was intubated on arrival so unable to provide any history. Apparently she was found by her nursing facility hypoxic and this did not improve with oxygen. On arrival to the emergency department she was nearly obtunded and mottled and sats dropped into the 60s. She was emergently intubated. She was found to have a right-sided pneumonia and urinary tract infection and is admitted to the ICU for further management. Source: patient Date Seen 07/18/22 Time Seen by a Provider: 16:40 Attending Physician Stan Eagle MD PCP Admitting Physician: Attending Physician: Referring Physician Date of Admission Home Medications & Allergies Home Medications Reviewed patient Home Medication Reconciliation performed by pharmacy medication reconciliations holter technician and/or nursing. Patients Allergies have been reviewed. Allergies Allergies Coded Allergies cranberry (Verified Allergy, Unknown, 04/23/22) Past Kyzfqcs-Ktdcuv-Jlircx Hx Patient Social History Employed/Student: unemployed Substance use?: Unable to obtain Alcohol Use?: Unable to obtain Pt feels they are or have been: Unable to obtain Current Status Communicates: Does Not Communicate Primary Language: Faroese Preferred Spoken Language: Faroese Sensory deficits: Speech impairment Past Medical History Developmental Disorder Family Medical History Reviewed Nursing Family Hx No Pertinent Family Hx Review of Systems ROS-Unable to Obtain: intubated Constitutional: see HPI Physical Exam Physical Exam Vital Signs Vital Signs - First Documented 07/18/22 15:45 FiO2 100 Capillary Refill : Height, Weight, BMI Height: '" Weight: lbs. oz. kg; 30.18 BMI Method: General Appearance: Chronically ill, Other (intubated, ill appearing) HEENT: PERRL/EOMI; No Scleral Icterus (L), No Scleral Icterus (R); Other (dry mucous membranes, ETT and OGT) Respiratory: Decreased Breath Sounds (diminished throughout right with crackles), Other (on vent) Cardiovascular: No JVD, No Murmur, Tachycardia Gastrointestinal: Normal Bowel Sounds, Non Tender, Soft Genital/Rectal: Other (suarez) Back: Other Extremity: No Calf Tenderness, Pedal Edema, Slow Capillary Refill Neurologic/Psychiatric: Alert (sedated but tracking staff with eyes) Skin: Mottled (feet and chest) Comments ER staff noted sacral wound but patient getting femoral line under sterile procedure while I was in room so unable to personally visualize Results Results/Procedures Labs Laboratory Tests 07/19/22 05:15 07/19/22 12:37 07/20/22 04:30 Patient resulted labs reviewed. Imaging: Reviewed Imaging Report Imaging [facility]. [place], [place] NAME: MATT LINK [facility] REC#: [id number] PT STATUS: REG ER : 1965 PHYSICIAN: LORENA NEWBERRY MD ADMIT DATE: 07/18/22/ER Signed Date of Exam:07/18/22 CHEST 1 VIEW, AP/PA ONLY CHEST 1 VIEW, AP/PA ONLY INDICATION: Altered mental status and hypoxia. COMPARISON: 04/23/2022. FINDINGS: ET tube has tip 5 cm above the josh. There is volume loss within the right lung with rightward mediastinal shift. Right pleural effusion is present. Left lung is well aerated. No pneumothorax. Normal heart size. IMPRESSION: 1. Well-positioned ET tube. 2. Volume loss within the right hemithorax may be due to mucous plugging and areas of atelectasis. 3. Small right pleural effusion. Dictated by: Dictated on workstation # [id number] Dict: 07/18/22 1613 Trans: 07/18/22 1650 [id number] Interpreted by: JONO TONY MD Electronically signed by: JONO TONY MD 07/18/22 165 Assessment/Plan Admission Diagnosis Septic Shock Admission Status: Inpatient Order (span 2 midnights) Reason for Inpatient Admission: see below Assessment and Plan Septic Shock Pneumonia CAUTI Continue on Vanc and Zosyn Intubated in ER Discussed with TeleICU Cultures pending attenuated fluid bolus (just 2L) due to hypoxia Intellectual disability PEG dependent Chronic indwelling suarez No acute needs, resume home feeds when able Hypothyroidism Continue home Synthroid when able Diagnosis/Problems Diagnosis/Problems (1) Intellectual disability (2) PEG (percutaneous endoscopic gastrostomy) status (3) Suarez catheter in place (4) Septic shock (5) Decubitus ulcer of coccygeal region, stage 4 Status: Acute (6) Urinary tract infection Status: Acute (7) Hypothyroidism CHARAN WATERS MD Jul 18, 2022 17:13
--- NOTE | 2022-07-18 17:53 | ED General ---
General Chief Complaint: Respiratory Problems Stated Complaint: PNEUMONIA Nursing Triage Note: pt to room by [facility] from [facility]. ems reports pt had abnormal labs today at approx noon. pt O2 sat in 80s at [facility] reportedly. ems reports [facility] placed pt on 4L NC and ems placed pt on 6L NC with O2 sat coming up to 88%. pt 82% on RA on arrival. pt placed on 15L oxymask during triage and RT called. pt O2 not coming up on oxymask. in room. pt has suarez placed on arrival. pt is not alert and oriented, but yells out. ems reports this is pt normal mentation Source of Information: EMS History of Present Illness Date Seen by Provider: Jul 18, 2022 Time Seen by Provider: 14:30 Initial Comments Patient is a 57-year-old female brought to the emergency department from a local [facility] chief complaint of low oxygen at the [facility]. EMS reports that the patient was found poorly responsive and hypoxic in the 70s/80s. She was placed on 4 L per nasal cannula with oxygen saturations coming up to the mid 80s. No further history is available at this time. Per review of the medical record patient has history of severe intellectual disability. She reportedly is not very verbal. She is found to be quite hypoxic on initial presentation in the low 80s even on high flow nasal cannula. Quite pale and mottled. Hypotensive in the low 90s systolic blood pressure. Moaning, yelling out repeatedly. Will not answer questions. Appears to be moving all 4 extremities. Pupils 3-4 and equally reactive. Extremely dry oral mucosa. Patient was a very difficult IV stick, initially only a 22-gauge IV was obtainable in an extremity. Fluid resuscitative measures were begun as well as initiation of more aggressive oxygenation. After initiation of Vapotherm, the patient's oxygenation did not improve. Decision was made for intubation. Diminished lung sounds throughout due to the patient's body habitus. Vital signs remain unstable. Patient was moved from room 10 into room 8 for int ubation and central line placement. Allergies and Home Medications Allergies Coded Allergies: cranberry (Verified Allergy, Unknown, 04/23/22) Patient Home Medication List Home Medication List Reviewed: Yes Acetaminophen (Children's Acetaminophen) 160 Mg/5 Ml Liquid, 31.23 ML PEG Q8H PRN for PAIN-MILD (1-4), (Reported) Entered as Reported by: JAKUB REYES on 04/24/22 1122 Arginine/Glutamine/Calcium Hmb (Elias Packet) 7 Gram-7 Gram-1.5 Gram Powd.pack, 1 EACH PEG BID, (Reported) Entered as Reported by: JAKUB REYES on 04/24/22 1114 Cariprazine Hydrochloride (Vraylar) 1.5 Mg Capsule, 1.5 MG PEG DAILY, (Reported) Entered as Reported by: JAKUB REYES on 04/24/22 1105 Clonazepam (Clonazepam) 0.5 Mg Tablet, 0.25 MG PO BID, (Reported) Entered as Reported by: JAKUB REYES on 04/24/22 1106 Docusate Sodium (Docusate Sodium) 100 Mg Tablet, 100 MG PO HS, (Reported) Entered as Reported by: JAKUB REYES on 04/24/22 1103 Furosemide (Furosemide) 40 Mg Tablet, 40 MG PO DAILY, (Reported) Entered as Reported by: JAKUB REYES on 04/24/22 1058 Hydrocodone/Acetaminophen (Hydrocodone-Acetamin 5-325 mg) 5 Mg-325 Mg Tablet, 1 TAB PEG BID PRN for PAIN-MODERATE (5-7), (Reported) Entered as Reported by: JAKUB REYES on 04/24/22 1111 Lactobacillus Acidophilus (Acidophilus) 1 Each Capsule, 1 EACH PO BID, (Reported) Entered as Reported by: JAKUB REYES on 04/24/22 1115 Levofloxacin (Levofloxacin) 750 Mg Tablet, 750 MG PO DAILY Prescribed by: ELY BROWN on 04/28/22 1145 Levothyroxine Sodium (Levothyroxine) 112 Mcg Capsule, 112 MCG PO DAILY, (Reported) Entered as Reported by: JAKUB REYES on 04/24/22 1124 Melatonin (Melatonin) 5 Mg Tablet, 5 MG PO HS, (Reported) Entered as Reported by: JAKUB REYES on 04/24/22 1059 Multivit-Minerals/Ferrous Gluc (Multi-Nadeen Liquid) 9 Mg Iron/15 Ml Liquid, 15 ML PEG DAILY, (Reported) Entered as Reported by: JAKUB REYES on 04/24/22 1102 Nystatin/Triamcinolone (Nystatin-Triamcinolone Cream) 100,000 Unit/Gram-0.1 % Cr, 1 APPLIC TP Q8H PRN for REDNESS, (Reported) Entered as Reported by: JAKUB REYES on 04/24/22 1123 Pantoprazole Sodium (Pantoprazole Sodium) 40 Mg Tablet.dr, 40 MG PO DAILY, (Reported) Entered as Reported by: JAKUB REYES on 04/24/22 1102 Sodium Chlor/Hypochlorous Acid (Vashe Wound Solution) 0.033 % Irrig.soln, 1 APPLIC TOP BID, (Reported) Entered as Reported by: JAKUB REYES on 04/24/22 1118 Tobramycin (Tobramycin) 0.3 % Drops, 2 DROPS OU QID, (Reported) Entered as Reported by: JAKUB REYES on 04/24/22 1119 Valproic Acid (As Sodium Salt) (Valproic Acid) 250 Mg/5 Ml Solution, 20 ML PEG BID, (Reported) Entered as Reported by: JAKUB REYES on 04/24/22 1117 Review of Systems Review of Systems Constitutional: see HPI Review of systems unobtainable secondary to the patient's intellectual disability Past Pttnqef-Wovaav-Jdfrzw Hx Patient Social History Substance use?: Unable to obtain Alcohol Use?: Unable to obtain Pt feels they are or have been: Unable to obtain Past Medical History Developmental Disorder Physical Exam-Suspected Sepsis Physical Exam Vital Signs Vital Signs - First Documented 07/18/22 15:45 FiO2 100 Capillary Refill : Blood Pressure Mean: 73 Height, Weight, BMI Height: '" Weight: lbs. oz. kg; 30.18 BMI Method: General Appearance: Anxious, Chronically ill Eyes: Bilateral Eye Normal Inspection HEENT: PERRL/EOMI, Other (Extremely dry oral mucosa) Neck: Other (large neck; poor ROM) Respiratory: Crackles (scattered R>L), Decreased Breath Sounds, Respiratory Distress Cardiovascular: Regular Rate, Rhythm, Tachycardia (140), Other (poor peripheral pulses) Gastrointestinal: Other (obese; peg tube Left abdomen - no surrounding cellulitis) Rectal: Other (deep dexubitus ulcer at top of gluteal cleft with gauze dressing packed in. good granulation tissue at base. mild surrounding erythema and warmth) Genital/Rectal: Other (suarez catheter in place) Back: Normal Inspection Extremity: Swelling (bilateral UE/hands and feet edematous. no soft tissue wounds noted to feet (large cushioned foot/feel protectors in place on arrival); cap refill3-4 seconds) Neurologic/Psychiatric: Alert, Other (severe intellectual disability, not answering questions. yelling out. not following commands) Skin: cyanosis, cool, mottled, other (deubitus ulcer at gluteal cleft as noted previously. mottled skin. filthy skin with debris;) Focused Exam Sepsis Stage: Severe Sepsis Lactate Level 07/18/22 16:40: Lactic Acid Level 1.88 07/18/22 19:40: Lactic Acid Level 1.90 Time of Focused Exam: 15:00 Respiratory: Decreased Breath Sounds, Respiratory Distress Cardiovascular: Tachycardia Capillary Refill: Greater Than 3 Seconds Peripheral Pulses: 1+ Carotid (R), 1+ Carotid (L) Skin: cool, mottled Lactic Acid Level Within 3hrs of presentation: Admin fluids, Admin ABX, Blood cultures prior to ABX's, Focus exam, Lactate level Procedures/Interventions Lumen: triple Central Line Procedure: betadine prep, sterile drapes applied, sterile dressing applied Position: femoral (R) Complications: none Post Position: sutured, good blood return @1640 Reason for Intubation: acute repiratory failure Date of ETT Placement: Jul 18, 2022 Time of ETT Placement: 15:30 Intubation Method: orotracheal Tube Size: 7.50 Medications: Etomidate, Rocuronium Positive End Tide CO2: Yes Breath Sounds after Intubation: left greater than right Post Intubation Xray: Yes ETT just at clavicles; poor aeration of right lung; no ptx Progress/Results/Core Measures Suspected Sepsis SIRS Temperature: Pulse: 140 Respiratory Rate: 16 Laboratory Tests 07/18/22 11:04: White Blood Count 19.0H 07/19/22 05:15: White Blood Count 19.2H Blood Pressure 120 /89 Mean: 73 07/18/22 16:40: Lactic Acid Level 1.88 07/18/22 19:40: Lactic Acid Level 1.90 Laboratory Tests 07/18/22 11:04: Creatinine 0.68, INR Comment 0.9, Platelet Count 512H, Total Bilirubin 0.3 07/19/22 05:15: Creatinine 0.60, Platelet Count 377, Total Bilirubin 0.2 Results/Orders Lab Results Laboratory Tests Test 07/18/22 11:04 07/18/22 15:11 07/18/22 16:00 07/18/22 16:10 Range/Units White Blood Count 19.0 H 4.3-11.0 10^3/uL Red Blood Count 4.53 3.80-5.11 10^6/uL Hemoglobin 14.2 11.5-16.0 g/dL Hematocrit 44 35-52 % Mean Corpuscular Volume 96 80-99 fL Mean Corpuscular Hemoglobin 31 25-34 pg Mean Corpuscular Hemoglobin Concent 33 32-36 g/dL Red Cell Distribution Width 13.8 10.0-14.5 % Platelet Count 512 H 130-400 10^3/uL Mean Platelet Volume 10.0 9.0-12.2 fL Immature Granulocyte % (Auto) 1 % Neutrophils (%) (Auto) 66 42-75 % Lymphocytes (%) (Auto) 23 12-44 % Monocytes (%) (Auto) 10 0-12 % Eosinophils (%) (Auto) 0 0-10 % Basophils (%) (Auto) 0 0-10 % Neutrophils # (Auto) 12.5 H 1.8-7.8 X 10^3 Lymphocytes # (Auto) 4.5 H 1.0-4.0 X 10^3 Monocytes # (Auto) 1.8 H 0.0-1.0 X 10^3 Eosinophils # (Auto) 0.1 0.0-0.3 10^3/uL Basophils # (Auto) 0.0 0.0-0.1 10^3/uL Immature Granulocyte # (Auto) 0.1 0.0-0.1 10^3/uL Neutrophils % (Manual) 66 % Lymphocytes % (Manual) 22 % Monocytes % (Manual) 8 % Eosinophils % (Manual) 1 % Myelocytes % 1 % Band Neutrophils 1 % Atypical Lymphocytes 1 % Blood Morphology Comment NORMAL Prothrombin Time 13.0 12.2-14.7 SEC INR Comment 0.9 0.8-1.4 Activated Partial Thromboplast Time 28 24-35 SEC Sodium Level 138 135-145 MMOL/L Potassium Level 3.8 3.6-5.0 MMOL/L Chloride Level 97 L 98-107 MMOL/L Carbon Dioxide Level 27 21-32 MMOL/L Anion Gap 14 5-14 MMOL/L Blood Urea Nitrogen 26 H 7-18 MG/DL Creatinine 0.68 0.60-1.30 MG/DL Estimat Glomerular Filtration Rate 101 BUN/Creatinine Ratio 38 Glucose Level 106 H 70-105 MG/DL Calcium Level 9.8 8.5-10.1 MG/DL Corrected Calcium 10.5 H 8.5-10.1 MG/DL Total Bilirubin 0.3 0.1-1.0 MG/DL Aspartate Amino Transf (AST/SGOT) 21 5-34 U/L Alanine Aminotransferase (ALT/SGPT) 10 0-55 U/L Alkaline Phosphatase 92 40-136 U/L Total Protein 8.2 6.4-8.2 GM/DL Albumin 3.1 L 3.2-4.5 GM/DL Blood Gas Puncture Site LEFT RADIAL RIGHT RAD Blood Gas Patient Temperature 37.4 37.4 Arterial Blood pH 7.51 H 7.48 H 7.37-7.43 Arterial Blood Partial Pressure CO2 41 43 35-45 MMHG Arterial Blood Partial Pressure O2 43 L 50 L 79-93 MMHG Arterial Blood HCO3 32 H 31 H 23-27 MMOL/L Arterial Blood Total CO2 33.3 H 32.4 H 21.0-31.0 MMOL/L Arterial Blood Oxygen Saturation 82 L 86 L 94-100 % Arterial Blood Base Excess 8.6 H 7.4 H -2.5-2.5 MMOL/L Johnathan Test NA YES-POS Blood Gas Ventilator Setting NO YES Blood Gas Inspired Oxygen 15 1 Urine Color YELLOW Urine Clarity CLEAR Urine pH 6.0 5-9 Urine Specific Loami >=1.030 1.016-1.022 Urine Protein TRACE H NEGATIVE Urine Glucose (UA) NEGATIVE NEGATIVE Urine Ketones NEGATIVE NEGATIVE Urine Nitrite POSITIVE H NEGATIVE Urine Bilirubin NEGATIVE NEGATIVE Urine Urobilinogen 0.2 < = 1.0 MG/DL Urine Leukocyte Esterase 2+ H NEGATIVE Urine RBC (Auto) 1+ H NEGATIVE Urine RBC 0-2 /HPF Urine WBC 25-50 H /HPF Urine Crystals PRESENT H /LPF Urine Calcium Oxalate Crystals RARE H /LPF Urine Bacteria MODERATE H /HPF Urine Casts NONE /LPF Urine Mucus NEGATIVE /LPF Urine Culture Indicated YES Test 07/18/22 16:40 07/18/22 19:40 07/19/22 05:15 07/19/22 07:10 Range/Units Lactic Acid Level 1.88 1.90 0.50-2.00 MMOL/L White Blood Count 19.2 H 4.3-11.0 10^3/uL Red Blood Count 3.45 L 3.80-5.11 10^6/uL Hemoglobin 10.7 L 11.5-16.0 g/dL Hematocrit 34 L 35-52 % Mean Corpuscular Volume 97 80-99 fL Mean Corpuscular Hemoglobin 31 25-34 pg Mean Corpuscular Hemoglobin Concent 32 32-36 g/dL Red Cell Distribution Width 14.0 10.0-14.5 % Platelet Count 377 130-400 10^3/uL Mean Platelet Volume 10.1 9.0-12.2 fL Immature Granulocyte % (Auto) 1 % Neutrophils (%) (Auto) 79 H 42-75 % Lymphocytes (%) (Auto) 11 L 12-44 % Monocytes (%) (Auto) 9 0-12 % Eosinophils (%) (Auto) 0 0-10 % Basophils (%) (Auto) 0 0-10 % Neutrophils # (Auto) 15.2 H 1.8-7.8 10^3/uL Lymphocytes # (Auto) 2.0 1.0-4.0 10^3/uL Monocytes # (Auto) 1.7 H 0.0-1.0 10^3/uL Eosinophils # (Auto) 0.0 0.0-0.3 10^3/uL Basophils # (Auto) 0.1 0.0-0.1 10^3/uL Immature Granulocyte # (Auto) 0.2 H 0.0-0.1 10^3/uL Sodium Level 143 135-145 MMOL/L Potassium Level 2.9 L 3.6-5.0 MMOL/L Chloride Level 107 98-107 MMOL/L Carbon Dioxide Level 22 21-32 MMOL/L Anion Gap 14 5-14 MMOL/L Blood Urea Nitrogen 17 7-18 MG/DL Creatinine 0.60 0.60-1.30 MG/DL Estimat Glomerular Filtration Rate 104 BUN/Creatinine Ratio 28 Glucose Level 153 H 70-105 MG/DL Calcium Level 8.7 8.5-10.1 MG/DL Corrected Calcium 10.1 8.5-10.1 MG/DL Phosphorus Level 2.3 2.3-4.7 MG/DL Magnesium Level 1.8 1.6-2.4 MG/DL Total Bilirubin 0.2 0.1-1.0 MG/DL Aspartate Amino Transf (AST/SGOT) 14 5-34 U/L Alanine Aminotransferase (ALT/SGPT) 10 0-55 U/L Alkaline Phosphatase 71 40-136 U/L Total Protein 5.8 L 6.4-8.2 GM/DL Albumin 2.3 L 3.2-4.5 GM/DL Triglycerides Level 215 H <150 MG/DL Blood Gas Puncture Site RIGHT BRACHIAL Blood Gas Patient Temperature 37 Arterial Blood pH 7.43 7.37-7.43 Arterial Blood Partial Pressure CO2 39 35-45 MMHG Arterial Blood Partial Pressure O2 79 79-93 MMHG Arterial Blood HCO3 25 23-27 MMOL/L Arterial Blood Total CO2 26.1 21.0-31.0 MMOL/L Arterial Blood Oxygen Saturation 97 94-100 % Arterial Blood Base Excess 1.0 -2.5-2.5 MMOL/L Johnathan Test POSITIVE Blood Gas Ventilator Setting YES Blood Gas Inspired Oxygen 70% My Orders Orders - LORENA NEWBERRY MD Cbc With Automated Diff (07/18/22 14:42) Comprehensive Metabolic Panel (07/18/22 14:42) Blood Culture (07/18/22 14:42) Sputum Culture (07/18/22 14:42) Urinalysis (07/18/22 14:42) Urine Culture (07/18/22 14:42) Protime With Inr (07/18/22 14:42) Partial Thromboplastin Time (07/18/22 14:42) Chest 1 View, Ap/Pa Only (07/18/22 14:42) Ed Iv/Invasive Line Start (07/18/22 14:42) Ed Iv/Invasive Line Start (07/18/22 14:42) Vital Signs Adult Sepsis Patie Q15M (07/18/22 14:42) O2 (07/18/22 14:42) Remove Rings In Anticipation O (07/18/22 14:42) Lactic Acid Analyzer (07/18/22 14:42) Ns Iv 1000 Ml (Sodium Chloride 0.9%) (07/18/22 14:45) Ekg Tracing (07/18/22 15:05) Ekg Tracing (07/18/22 15:05) Manual Differential (07/18/22 11:04) Arterial Blood Gas (07/18/22 15:11) Propofol Drip (Icu) (Diprivan Drip (Icu) (07/18/22 15:38) Piperacillin Sodium/Tazobactam (Zosyn Vi (07/18/22 16:00) Vancomycin Injection (Vancomycin Injecti (07/18/22 16:00) Ns Iv 1000 Ml (Sodium Chloride 0.9%) (07/18/22 16:00) Arterial Blood Gas (07/18/22 16:12) Urine Culture (07/18/22 16:00) Ed Admission (Communication) (07/18/22 17:46) Midazolam Injection (Versed Injection) (07/18/22 18:00) Medications Given in ED Vital Signs/I&O 07/18/22 07/18/22 07/18/22 07/18/22 19:52 20:00 20:00 20:06 Pulse 118 113 118 Resp 16 B/P (MAP) 115/87 111/79 (90) 115/87 Pulse Ox 99 O2 Delivery Mechanical Ventilator Mechanical Ventilator O2 Flow Rate 100.00 FiO2 100 07/18/22 07/18/22 07/18/22 07/18/22 20:30 20:51 21:00 22:00 Pulse 110 107 113 101 Resp 16 16 16 16 B/P (MAP) 101/64 (76) 101/80 (87) 90/75 (80) Pulse Ox 99 99 99 99 O2 Delivery Mechanical Ventilator Mechanical Ventilator Mechanical Ventilator O2 Flow Rate 100.00 100.00 100.00 FiO2 100 07/18/22 07/18/22 07/19/22 07/19/22 23:00 23:59 00:00 00:06 Pulse 105 94 94 Resp 16 16 B/P (MAP) 86/70 (75) 98/63 (75) 98/63 Pulse Ox 98 98 O2 Delivery Mechanical Ventilator Mechanical Ventilator Mechanical Ventilator O2 Flow Rate 100.00 100.00 FiO2 100 07/19/22 07/19/22 07/19/22 07/19/22 01:00 01:00 02:00 02:52 Pulse 100 94 92 88 Resp 16 16 16 B/P (MAP) 123/75 (91) 101/67 (78) Pulse Ox 100 100 98 O2 Delivery Mechanical Ventilator Mechanical Ventilator O2 Flow Rate 100.00 100.00 FiO2 80 07/19/22 07/19/22 07/19/22 07/19/22 02:54 03:00 03:02 03:04 Pulse 89 Resp 16 B/P (MAP) 107/63 (78) Pulse Ox 98 O2 Delivery Mechanical Ventilator Mechanical Ventilator Mechanical Ventilator O2 Flow Rate 80.00 80.00 70.00 FiO2 70 07/19/22 07/19/22 07/19/22 07/19/22 04:00 04:00 05:00 05:54 Pulse 105 100 105 Resp 16 16 B/P (MAP) 96/59 (71) 108/70 (83) 96/59 Pulse Ox 97 98 O2 Delivery Mechanical Ventilator Mechanical Ventilator Mechanical Ventilator O2 Flow Rate 70.00 70.00 FiO2 70 07/19/22 07/19/22 06:00 07:20 Pulse 79 91 Resp 16 16 B/P (MAP) 136/73 (94) Pulse Ox 98 98 O2 Delivery Mechanical Ventilator O2 Flow Rate 70.00 FiO2 60 07/19/22 00:00 Intake Total 100 ml Balance 100 ml Capillary Refill : Blood Pressure Mean: 73 ECG Initial ECG Impression Date: Jul 18, 2022 Initial ECG Impression Time: 15:09 Initial ECG Rate: 141 Initial ECG Rhythm: S.Tach Initial ECG Impression: Nonspecific Changes Diagnostic Imaging Diagonstic Imaging: Xray Plain Films/CT/US/NM/MRI: chest Comments [facility] [place] NAME: MATT LINK [facility] REC#: [id number] PT STATUS: REG ER : 1965 PHYSICIAN: LORENA NEWBERRY MD ADMIT DATE: 07/18/22/ER Signed Date of Exam:07/18/22 CHEST 1 VIEW, AP/PA ONLY CHEST 1 VIEW, AP/PA ONLY INDICATION: Altered mental status and hypoxia. COMPARISON: 04/23/2022. FINDINGS: ET tube has tip 5 cm above the josh. There is volume loss within the right lung with rightward mediastinal shift. Right pleural effusion is present. Left lung is well aerated. No pneumothorax. Normal heart size. IMPRESSION: 1. Well-positioned ET tube. 2. Volume loss within the right hemithorax may be due to mucous plugging and areas of atelectasis. 3. Small right pleural effusion. Dictated by: Dictated on workstation # [id number] Dict: 07/18/22 1613 Trans: 07/18/22 1650 [id number] Interpreted by: JONO TONY MD Electronically signed by: JONO TONY MD 07/18/22 1650 Critical Care Note Critical Care Start Time: 14:30 Stop Time: 17:00 Total Time (minutes) 60 minutes critical care time in the evaluation and management of this 57-year-old female intellectually disabled presenting with severe sepsis. Time includes initial evaluation and management of both hypoxia, volume depletion/dehydration/hypotension with oxygen supplementation and oxygen administration. One-on-one time at the bedside for the first 20 minutes at the patient's arrival. Review and interpretation of labs, imaging. Review of the medical record, serial reevaluations, discussion with hospitalist. Time does not include that spent in procedures of intubation and central line placement Departure Communication (Admissions) Time/Spoke to Admitting Phy: 16:[address] Pittman (while I was placing central line) accepts to ICU; she will contact eICU and do que'd orders Impression Primary Impression: Severe sepsis Disposition: ADMITTED INPATIENT Condition: Critical Admissions Decision to Admit Reason: Admit from ER (General) Decision to Admit/Date: Jul 18, 2022 Time/Decision to Admit Time: 15:30 Departure-Patient Inst. Referrals: JOHN PICKERING MD (PCP/Family) Primary Care Physician Images Female/Male 1 - Pressure Ulcer LORENA NEWBERRY MD Jul 18, 2022 17:53
[2022-07-18] MEDS ORDERED: MIDAZOLAM 2 MG/2 ML (VERSED) VIAL IVP ONE (18:00)
[2022-07-18] MEDS ORDERED: LACTATED RINGERS 1,000 ML IV SCH (19:30)
[2022-07-18] MEDS ORDERED: PIPERACILLIN SODIUM/TAZOBACTAM 4.5 GM in NS (IVPB) 100 ML IV SCH (19:30)
[2022-07-18] MEDS ORDERED: VANCOMYCIN INJECTION 0.1 MG in NS (IVPB) 250 ML IV SCH (19:30)
[2022-07-18] MEDS ORDERED: LACTATED RINGERS 1,000 ML IV ONE (19:39)
[2022-07-18] MEDS ORDERED: DexMEDEtomidine 250 ML DRIP 250 ML IV ONE (19:39)
[2022-07-18] MEDS ORDERED: NS IV 1000 ML 1,000 ML ONE (19:39)
[2022-07-18] MEDS ORDERED: VANCOMYCIN 500 MG/NS 100 ML IV NR ×2 (19:45)
[2022-07-18] MEDS: DexMEDEtomidine 250 ML DRIP 250 ML IV SCH (19:52)
[2022-07-18] MEDS: NS IV 1000 ML 1,000 ML IV SCH (19:53)
[2022-07-18] MEDS: PROPOFOL DRIP (ICU) 100 ML IV SCH (20:06)
[2022-07-18] MEDS ORDERED: PROPOFOL DRIP (ICU) 100 ML IV SCH (20:30)
[2022-07-18 20:51] VITALS: BP 94/72
[2022-07-18] MEDS: RT-ALBUTEROL/IPRATROPIUM 3 ML (DUONEB) VIAL INH SCH (22:35)
[2022-07-18] MEDS: PIPERACILLIN SODIUM/TAZOBACTAM 4.5 GM in NS (IVPB) 100 ML IV SCH (22:57)
[2022-07-19] MEDS: NOREPINEPHRINE 8 MG/250 ML 250 ML IV SCH ×2 (00:06→19:00)
[2022-07-19] MEDS: NS IV 1000 ML 1,000 ML IV SCH ×4 (02:43→23:03)
[2022-07-19 02:52] VITALS: BP 127/63
[2022-07-19] MEDS: RT-ALBUTEROL/IPRATROPIUM 3 ML (DUONEB) VIAL INH SCH ×6 (02:52→21:09)
[2022-07-19] MEDS: PIPERACILLIN SODIUM/TAZOBACTAM 4.5 GM in NS (IVPB) 100 ML IV SCH ×3 (05:54→23:56)
[2022-07-19] MEDS: PROPOFOL DRIP (ICU) 100 ML IV SCH ×2 (05:54→15:48)
[2022-07-19] MEDS: VANCOMYCIN 1 GM/NS 250 ML IVPB IV SCH ×4 (05:54→18:09)
[2022-07-19 05:59] LABS: BASOPHILS # (AUTO) 0.1 10^3/uL (0.0-0.1); BASOPHILS % (AUTO) 0 % (0-10); EOSINOPHILS % (AUTO) 0 % (0-10); HEMATOCRIT 34 % (35-52); HEMOGLOBIN 10.7 g/dL (11.5-16.0); LYMPHOCYTES % (AUTO) 11 % (12-44); MEAN CORPUSCULAR HEMOGLOBIN 31 pg (25-34); MEAN CORPUSCULAR HGB CONC 32 g/dL (32-36); MEAN CORPUSCULAR VOLUME 97 fL (80-99); MEAN PLATELET VOLUME 10.1 fL (9.0-12.2); MONOCYTES # (AUTO) 1.7 10^3/uL (0.0-1.0); MONOCYTES % (AUTO) 9 % (0-12); NEUTROPHILS # (AUTO) 15.2 10^3/uL (1.8-7.8); NEUTROPHILS % (AUTO) 79 % (42-75); PLATELET COUNT 377 10^3/uL (130-400); WHITE BLOOD COUNT 19.2 10^3/uL (4.3-11.0)
[2022-07-19 06:25] LABS: ALBUMIN 2.3 GM/DL (3.2-4.5); BILIRUBIN,TOTAL 0.2 MG/DL (0.1-1.0); CALCIUM 8.7 MG/DL (8.5-10.1); CREATININE SERUM 0.6 MG/DL (0.60-1.30); MAGNESIUM 1.8 MG/DL (1.6-2.4); PHOSPHORUS 2.3 MG/DL (2.3-4.7); POTASSIUM 2.9 MMOL/L (3.6-5.0); TOTAL PROTEIN 5.8 GM/DL (6.4-8.2)
[2022-07-19] MEDS ORDERED: POTASSIUM CL 10MEQ/50ML IVPB 250 ML IV ONE (06:52)
[2022-07-19] MEDS ORDERED: POTASSIUM CL 10MEQ/50ML IVPB 50 ML IV ONE (07:00)
[2022-07-19] MEDS ORDERED: NS IV 500 ML 500 ML IV PRN (07:00)
[2022-07-19] MEDS ORDERED: RT-ALBUTEROL/IPRATROPIUM 3 ML (DUONEB) VIAL INH SCH (07:00)
[2022-07-19] MEDS: POTASSIUM CL 10MEQ/50ML IVPB 50 ML IV SCH ×3 (07:13→09:18)
[2022-07-19 07:20] VITALS: BP 99/71
--- NOTE | 2022-07-19 07:27 | Occ Therapy Progress Note ---
Therapy Progress Note OT orders received and chart reviewed. Pt is currently intubated/sedated. OT will continue to check patients status and initiate evaluation when medically stable and able to actively participate in therapy. Desiree Malik OT Jul 19, 2022 07:26
[2022-07-19 07:33] LABS: ABG OXYGEN SATURATION 97 % (94-100); ABG PCO2 39 MMHG (35-45); ABG PH 7.43 (7.37-7.43); ABG PO2 79 MMHG (79-93); ABG TCO2 26.1 MMOL/L (21.0-31.0)
[2022-07-19 07:35] LABS: ALLENS TEST POSITIVE; INSPIRED O2 70%; PATIENT TEMP 37; VENTILATOR YES
[2022-07-19] MEDS: PANTOPRAZOLE 40 MG (PROTONIX) VIAL IV SCH (08:12)
--- NOTE | 2022-07-19 08:54 | Diagnostic Imaging Report ---
EXAMINATION: Chest 1 view HISTORY: Pneumonia COMPARISON: 07/18/2021 FINDINGS: Endotracheal tube tip terminates 6 cm above the josh. There is volume loss on the right with right basilar airspace opacity. No pneumothorax. Left lung is clear. Heart size is normal. IMPRESSION: 1. Unchanged right base airspace opacity and volume loss on the right which may represent atelectasis or pneumonia. Dictated by: Dictated on workstation # [id number]
--- NOTE | 2022-07-19 09:02 | Tele-ICU Progress Note ---
Subjective Date Seen by a Provider: Jul 19, 2022 Subjective/Events-last exam This virtual visit was conducted using real time audio/video. Thank you for asking us to see this patient for respiratory insufficiency due to pna, atelectasis and severe sepsis. Severe intellectual impairment. PE: VSS. O2 sat 98% on AC16/450/60%/+10. HEENT: No obvious masses, adenopathy or JVD. Chest: diminished and coarse on R. CV: RRR S1 S2 No murmur or added sounds. Abd: Non-tender. Bowel sounds Y. : Unremarkable. 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 Extremities: No edema. Capillary refill < 3 seconds. Skin: unremarkable. Results: Elevated WCC 19.2, BG 153. Decreased Hb 10.9, K 2.9.. B.43/39/79 on 70%/+10.. CXR: Improving R atel., infilt.. Available chart/ vitals / labs / images reviewed. Video assessment done using teleICU camera, rest of exam as per RN. A/P: Respiratory insufficiency: Continue present management with vent, duonebs, Prec., Prop. Wean O2 as [place]ignton. Critical Care: critically ill patient. Cont.abx, synth., PPI, Levophed, SCDs. Replace K. Discussed with AGUEDA Caldera. Asked RN to reach out to eICU if any questions or concerns later. Time spent with patient/coordination of care with other health professionals (mins): 30 Sepsis Event Evaluation Height, Weight, BMI Height: '" Weight: lbs. oz. kg; 30.18 BMI Method: Focused Exam Lactate Level 07/18/22 16:40: Lactic Acid Level 1.88 07/18/22 19:40: Lactic Acid Level 1.90 Time of Focused Exam: 15:00 Exam Exam Patient acknowledged, consented, and participated in this virtual visit which w as conducted using real time audio/video Vital Signs Date Time Temp Pulse Resp B/P (MAP) Pulse Ox O2 Delivery O2 Flow Rate FiO2 07/19/22 08:22 37.3 07/19/22 08:00 106 16 107/70 (82) 97 Mechanical Ventilator 70.00 07/19/22 07:20 91 16 98 60 07/19/22 07:00 92 16 103/68 (80) 97 Mechanical Ventilator 70.00 07/19/22 07:00 94 07/19/22 06:00 79 16 136/73 (94) 98 Mechanical Ventilator 70.00 07/19/22 05:54 105 96/59 07/19/22 05:00 100 16 108/70 (83) 98 Mechanical Ventilator 70.00 07/19/22 04:00 Mechanical Ventilator 70 07/19/22 04:00 105 16 96/59 (71) 97 Mechanical Ventilator 70.00 07/19/22 03:04 Mechanical Ventilator 70.00 07/19/22 03:02 70 07/19/22 03:00 89 16 107/63 (78) 98 Mechanical Ventilator 80.00 07/19/22 02:54 Mechanical Ventilator 80.00 07/19/22 02:52 88 16 98 80 07/19/22 02:00 92 16 101/67 (78) 100 Mechanical Ventilator 100.00 07/19/22 01:00 94 16 123/75 (91) 100 Mechanical Ventilator 100.00 07/19/22 01:00 100 07/19/22 00:06 94 98/63 07/19/22 00:00 94 16 98/63 (75) 98 Mechanical Ventilator 100.00 07/18/22 23:59 Mechanical Ventilator 100 07/18/22 23:00 105 16 86/70 (75) 98 Mechanical Ventilator 100.00 07/18/22 22:00 101 16 90/75 (80) 99 Mechanical Ventilator 100.00 07/18/22 21:00 113 16 101/80 (87) 99 Mechanical Ventilator 100.00 07/18/22 20:51 107 16 99 100 07/18/22 20:30 110 16 101/64 (76) 99 Mechanical Ventilator 100.00 07/18/22 20:06 118 115/87 07/18/22 20:00 Mechanical Ventilator 100 07/18/22 20:00 113 16 111/79 (90) 99 Mechanical Ventilator 100.00 07/18/22 19:52 118 115/87 07/18/22 19:45 118 16 105/65 (78) 97 Mechanical Ventilator 100.00 07/18/22 19:30 116 16 103/78 (86) 97 Mechanical Ventilator 100.00 07/18/22 19:25 120 07/18/22 19:15 36.9 118 16 115/87 (96) 100 Mechanical Ventilator 100.00 07/18/22 19:00 110 16 101/75 95 Mechanical Ventilator 07/18/22 16:53 140 07/18/22 15:45 137 16 84 100 07/18/22 14:35 82 OxyMask 15.00 07/18/22 14:35 37.4 135 26 109/55 (73) 82 OxyMask 15.00 I & O 07/19/22 07:00 Intake Total 2350 ml Output Total 925 ml Balance 1425 ml Height & Weight Height: '" Weight: lbs. oz. kg; 30.18 BMI Method: General Appearance: Anxious, Chronically ill HEENT: PERRL/EOMI, Other (Extremely dry oral mucosa) Neck: Other (large neck; poor ROM) Respiratory: Decreased Breath Sounds, Respiratory Distress Cardiovascular: Tachycardia Capillary Refill: Greater Than 3 Seconds Peripheral Pulses: 1+ Carotid (R), 1+ Carotid (L) Extremity: Swelling (bilateral UE/hands and feet edematous. no soft tissue wounds noted to feet (large cushioned foot/feel protectors in place on arrival); cap refill3-4 seconds) Neurologic/Psychiatric: Alert, Other (severe intellectual disability, not answering questions. yelling out. not following commands) Results Lab Laboratory Tests 07/18/22 11:04 07/19/22 05:15 Assessment/Plan Assessment/Plan See free text. Critical Care: Ventilator Management RITCHIE PRUITT MD Jul 19, 2022 09:02
--- NOTE | 2022-07-19 09:20 | Progress Note - Hospitalist ---
Subjective HPI/CC On Admission Date Seen by Provider: Jul 19, 2022 Subjective/Events-last exam Pt remains intubatd and sedated. No concerns per RN. They report eICU plans to wean FiO2 today. Focused Exam Lactate Level 07/18/22 16:40: Lactic Acid Level 1.88 07/18/22 19:40: Lactic Acid Level 1.90 Time of Focused Exam: 15:00 Objective Exam Vital Signs Vital Signs Date Time Temp Pulse Resp B/P (MAP) Pulse Ox O2 Delivery O2 Flow Rate FiO2 07/20/22 12:00 99 16 110/64 (79) 97 Mechanical Ventilator 30.00 07/20/22 09:21 30 07/20/22 08:00 37.8 Capillary Refill : Greater Than 3 Seconds General Appearance: No Apparent Distress, Chronically ill, Obese, Other (sedated on vent) Respiratory: Decreased Breath Sounds, Other (on vent) Cardiovascular: No Murmur, Tachycardia Gastrointestinal: Normal Bowel Sounds, Non Tender, Soft Extremity: Normal Capillary Refill, Pedal Edema Neurologic/Psychiatric: Other (opens eyes when spoken to, otherwise does not respond or follow commands, on sedation) Results/Procedures Lab Laboratory Tests 07/20/22 04:30 Patient resulted labs reviewed. Assessment/Plan Assessment and Plan Assess & Plan/Chief Complaint Septic Shock Acute hypoxic respiratory failure Pneumonia CAUTI Continue on Vanc and Zosyn Maintained on vent- managed by [facility]- appreciate their help Cultures pending Intellectual disability PEG dependent Chronic indwelling suarez No acute needs, resume home feeds when able Hypothyroidism Continue home Synthroid when able Critical Care Ventilator Management Diagnosis/Problems Diagnosis/Problems (1) Intellectual disability (2) PEG (percutaneous endoscopic gastrostomy) status (3) Suarez catheter in place (4) Septic shock (5) Decubitus ulcer of coccygeal region, stage 4 Status: Acute (6) Urinary tract infection Status: Acute (7) Hypothyroidism CHARAN WATERS MD Jul 19, 2022 09:20
[2022-07-19 10:27] VITALS: BP 96/63
--- NOTE | 2022-07-19 11:27 | Physical Therapy Progress Note ---
Therapy Progress Note Pt is currently on the vent and will be evaluated once they are capable of participating. FABIÁN BOWMAN PT Jul 19, 2022 11:27
[2022-07-19] MEDS ORDERED: ROCURONIUM 10 MG/ML 5 ML SYRINGE IV ONE (14:53)
[2022-07-19] MEDS ORDERED: ETOMIDATE IV SOLN 20 MG/10 ML VIAL IV ONE (14:53)
[2022-07-19 15:18] VITALS: BP 121/69
--- NOTE | 2022-07-19 17:03 | Consultation - Surgery ---
[facility]03: History of Present Illness History of Present Illness Patient Consulted On(celio/time) 07/19/22 16:58 Date Seen by Provider: Jul 19, 2022 Time Seen by Provider: 16:58 History of Present Illness Patient is a 57yo female with a PMH of intellectual disability with chronic indwelling Pichardo and PEG tube dependence. She presented to ED on 07/18/22 with altered mental status and hypoxia. Apparently she was found by her nursing facility hypoxic and this did not improve with oxygen. On arrival to the emergency department she was nearly obtunded and mottled and sats dropped into the 60s. She was emergently intubated on arrival. She was found to have a right-sided pneumonia and urinary tract infection and is admitted to the ICU for further management. Consult requested for sacral decubitus ulcer per Dr. Waters. Today pt is unable to give a history. She is currently intubated and alert to name. Allergies and Home Medications Allergies Coded Allergies: cranberry (Verified Allergy, Unknown, 04/23/22) Patient Home Medication List Home Medication List Reviewed: Yes Acetaminophen (Children's Acetaminophen) 160 Mg/5 Ml Liquid, 31.23 ML PEG Q8H PRN for PAIN-MILD (1-4), (Reported) Entered as Reported by: JAKUB REYES on 04/24/22 1122 Arginine/Glutamine/Calcium Hmb (Elias Packet) 7 Gram-7 Gram-1.5 Gram Powd.pack, 1 EACH PEG BID, (Reported) Entered as Reported by: JAKUB REYES on 04/24/22 1114 Cariprazine Hydrochloride (Vraylar) 1.5 Mg Capsule, 1.5 MG PEG DAILY, (Reported) Entered as Reported by: JAKUB REYES on 04/24/22 1105 Clonazepam (Clonazepam) 0.5 Mg Tablet, 0.25 MG PO BID, (Reported) Entered as Reported by: JAKUB REYES on 04/24/22 1106 Docusate Sodium (Docusate Sodium) 100 Mg Tablet, 100 MG PO HS, (Reported) Entered as Reported by: JAKUB REYES on 04/24/22 1103 Furosemide (Furosemide) 40 Mg Tablet, 40 MG PO DAILY, (Reported) Entered as Reported by: JAKUB REYES on 04/24/22 1058 Hydrocodone/Acetaminophen (Hydrocodone-Acetamin 5-325 mg) 5 Mg-325 Mg Tablet, 1 TAB PEG BID PRN for PAIN-MODERATE (5-7), (Reported) Entered as Reported by: JAKUB REYES on 04/24/22 1111 Lactobacillus Acidophilus (Acidophilus) 1 Each Capsule, 1 EACH PO BID, (Reported) Entered as Reported by: JAKUB REYES on 04/24/22 1115 Levofloxacin (Levofloxacin) 750 Mg Tablet, 750 MG PO DAILY Prescribed by: ELY BROWN on 04/28/22 1145 Levothyroxine Sodium (Levothyroxine) 112 Mcg Capsule, 112 MCG PO DAILY, (Reported) Entered as Reported by: JAKUB REYES on 04/24/22 1124 Melatonin (Melatonin) 5 Mg Tablet, 5 MG PO HS, (Reported) Entered as Reported by: JAKUB REYES on 04/24/22 1059 Multivit-Minerals/Ferrous Gluc (Multi-Nadeen Liquid) 9 Mg Iron/15 Ml Liquid, 15 ML PEG DAILY, (Reported) Entered as Reported by: JAKUB REYES on 04/24/22 1102 Nystatin/Triamcinolone (Nystatin-Triamcinolone Cream) 100,000 Unit/Gram-0.1 % Cr, 1 APPLIC TP Q8H PRN for REDNESS, (Reported) Entered as Reported by: JAKUB REYES on 04/24/22 1123 Pantoprazole Sodium (Pantoprazole Sodium) 40 Mg Tablet.dr, 40 MG PO DAILY, (Reported) Entered as Reported by: JAKUB ERYES on 04/24/22 1102 Sodium Chlor/Hypochlorous Acid (Vashe Wound Solution) 0.033 % Irrig.soln, 1 APPLIC TOP BID, (Reported) Entered as Reported by: JAKUB REYES on 04/24/22 1118 Tobramycin (Tobramycin) 0.3 % Drops, 2 DROPS OU QID, (Reported) Entered as Reported by: JAKUB REYES on 04/24/22 1119 Valproic Acid (As Sodium Salt) (Valproic Acid) 250 Mg/5 Ml Solution, 20 ML PEG BID, (Reported) Entered as Reported by: JAKUB REYES on 04/24/22 1117 Past Razsywm-Qyjwau-Pygcmh Hx Patient Social History Alcohol Use?: Unable to obtain Neurological Neurological Disorders: Developmental Disorder Family Medical History Significant Family History: No Pertinent Family Hx Other Unable to obtain d/t pt status, no pertinent hx per jail chart Review of Systems-General ROS-Unable to Obtain: d/t intubation and intellectual disability Physical Exam-General Problems Physical Exam Vital Signs Vital Signs - First Documented 07/18/22 15:45 FiO2 100 Capillary Refill : Greater Than 3 Seconds General Appearance: obese, other (ill appearing, intubated) HEENT: PERRL/EOMI; No scleral icterus (R), No scleral icterus (L) Neck: supple, normal inspection Respiratory: decreased breath sounds (on right), other (on vent) Cardiovascular: regular rate, rhythm, no JVD Peripheral Pulses: 2+ Radial Pulses (R), 2+ Radial Pulses (L) Gastrointestinal: non tender, soft Rectal: deferred Back: normal inspection, no CVA tenderness Extremities: pedal edema, slow capillary refill Neurologic/Psychiatric: alert, disoriented x 3, other (reponds to name, cannot follow commands) Skin: warm/dry, other (sacral decubitus ulcer- ping pong ball size, clean with some induration at margins, no purulence) Lymphatic: no adenopathy Data Review Labs Laboratory Tests 07/18/22 19:40: Lactic Acid Level 1.90 07/19/22 05:15: White Blood Count 19.2H, Red Blood Count 3.45L, Hemoglobin 10.7L, Hematocrit 34L , Mean Corpuscular Volume 97, Mean Corpuscular Hemoglobin 31, Mean Corpuscular Hemoglobin Concent 32, Red Cell Distribution Width 14.0, Platelet Count 377, Mean Platelet Volume 10.1, Immature Granulocyte % (Auto) 1, Neutrophils (%) (Auto) 79H, Lymphocytes (%) (Auto) 11L, Monocytes (%) (Auto) 9, Eosinophils (%) (Auto) 0, Basophils (%) (Auto) 0, Neutrophils # (Auto) 15.2H, Lymphocytes # (Auto) 2.0, Monocytes # (Auto) 1.7H, Eosinophils # (Auto) 0.0, Basophils # (Auto) 0.1, Immature Granulocyte # (Auto) 0.2H, Sodium Level 143, Potassium Level 2.9L, Chloride Level 107, Carbon Dioxide Level 22, Anion Gap 14, Blood Urea Nitrogen 17, Creatinine 0.60, Estimat Glomerular Filtration Rate 104, BUN/Creatinine Ratio 28, Glucose Level 153H, Calcium Level 8.7, Corrected Calcium 10.1, Phosphorus Level 2.3, Magnesium Level 1.8, Total Bilirubin 0.2, Aspartate Amino Transf (AST/SGOT) 14, Alanine Aminotransferase (ALT/SGPT) 10, Alkaline Phosphatase 71, Total Protein 5.8L, Albumin 2.3L, Triglycerides Level 215H 07/19/22 07:10: Blood Gas Puncture Site RIGHT BRACHIAL, Blood Gas Patient Temperature 37, Arterial Blood pH 7.43, Arterial Blood Partial Pressure CO2 39, Arterial Blood Partial Pressure O2 79, Arterial Blood HCO3 25, Arterial Blood Total CO2 26.1, Arterial Blood Oxygen Saturation 97, Arterial Blood Base Excess 1.0, Johnathan Test POSITIVE, Blood Gas Ventilator Setting YES, Blood Gas Inspired Oxygen 70% 07/19/22 12:37: Potassium Level 3.6 Microbiology 07/18/22 Blood Culture - Preliminary, Resulted No growth Radiology [facility] [place], [place] NAME: MATT LINK [facility] REC#: [id number] PT STATUS: ADM IN : 1965 PHYSICIAN: CHARAN WATERS MD ADMIT DATE: 07/18/22/ICU Signed Date of Exam:07/19/22 CHEST 1 VIEW, AP/PA ONLY EXAMINATION: Chest 1 view HISTORY: Pneumonia COMPARISON: 07/18/2021 FINDINGS: Endotracheal tube tip terminates 6 cm above the josh. There is volume loss on the right with right basilar airspace opacity. No pneumothorax. Left lung is clear. Heart size is normal. IMPRESSION: 1. Unchanged right base airspace opacity and volume loss on the right which may represent atelectasis or pneumonia. Dictated by: Dictated on workstation # [id number] Dict: 07/19/2214 Trans: 07/19/22920 [facility] [id number] Interpreted by: JOHN ROSS MD Electronically signed by: JOHN ROSS MD 07/19/22920 Assessment/Plan Assessment/Plan Assessment/Plan sacral decubitus ulcer- clean wound without purulence today pneumonia and uti intellectual disability acute respiratory failure -on vent continue wound care and monitor continue abx- zosyn and vanc managed by patrice Horan BRETT D DO 07/19/222053: History of Present Illness History of Present Illness History of Present Illness Consult requested by Dr. Waters for decubitus ulcer. Patient is a 57 year old female unable to provide any information. Admitted for UTI and pneumonia. Patient was found to be hypoxic at care facility and brought to ED for further evaluation. Patient currently intubated. Patient has decubitus ulcer which previously reported to have wound vac. Allergies and Home Medications Allergies Coded Allergies: cranberry (Verified Allergy, Unknown, 04/23/22) Patient Home Medication List Home Medication List Reviewed: Yes Acetaminophen (Children's Acetaminophen) 160 Mg/5 Ml Liquid, 31.23 ML PEG Q8H PRN for PAIN-MILD (1-4), (Reported) Entered as Reported by: JAKUB REYES on 04/24/22 1122 Arginine/Glutamine/Calcium Hmb (Elias Packet) 7 Gram-7 Gram-1.5 Gram Powd.pack, 1 EACH PEG BID, (Reported) Entered as Reported by: JAKUB REYES on 04/24/22 1114 Cariprazine Hydrochloride (Vraylar) 1.5 Mg Capsule, 1.5 MG PEG DAILY, (Reported) Entered as Reported by: AJKUB REYES on 04/24/22 1105 Clonazepam (Clonazepam) 0.5 Mg Tablet, 0.25 MG PO BID, (Reported) Entered as Reported by: JAKUB REYES on 04/24/22 1106 Docusate Sodium (Docusate Sodium) 100 Mg Tablet, 100 MG PO HS, (Reported) Entered as Reported by: JAKUB REYES on 04/24/22 1103 Furosemide (Furosemide) 40 Mg Tablet, 40 MG PO DAILY, (Reported) Entered as Reported by: JAKUB REYES on 04/24/22 1058 Hydrocodone/Acetaminophen (Hydrocodone-Acetamin 5-325 mg) 5 Mg-325 Mg Tablet, 1 TAB PEG BID PRN for PAIN-MODERATE (5-7), (Reported) Entered as Reported by: JAKUB REYES on 04/24/22 1111 Lactobacillus Acidophilus (Acidophilus) 1 Each Capsule, 1 EACH PO BID, (Reported) Entered as Reported by: JAKUB REYES on 04/24/22 1115 Levofloxacin (Levofloxacin) 750 Mg Tablet, 750 MG PO DAILY Prescribed by: ELY BROWN on 04/28/22 1145 Levothyroxine Sodium (Levothyroxine) 112 Mcg Capsule, 112 MCG PO DAILY, (Reported) Entered as Reported by: JAKUB REYES on 04/24/22 1124 Melatonin (Melatonin) 5 Mg Tablet, 5 MG PO HS, (Reported) Entered as Reported by: JAKUB REYES on 04/24/22 1059 Multivit-Minerals/Ferrous Gluc (Multi-Nadeen Liquid) 9 Mg Iron/15 Ml Liquid, 15 ML PEG DAILY, (Reported) Entered as Reported by: JAKUB REYES on 04/24/22 1102 Nystatin/Triamcinolone (Nystatin-Triamcinolone Cream) 100,000 Unit/Gram-0.1 % Cr, 1 APPLIC TP Q8H PRN for REDNESS, (Reported) Entered as Reported by: JAKUB REYES on 04/24/22 1123 Pantoprazole Sodium (Pantoprazole Sodium) 40 Mg Tablet.dr, 40 MG PO DAILY, (Reported) Entered as Reported by: JAKUB REYES on 04/24/22 1102 Sodium Chlor/Hypochlorous Acid (Vashe Wound Solution) 0.033 % Irrig.soln, 1 APPLIC TOP BID, (Reported) Entered as Reported by: JAKUB REYES on 04/24/22 1118 Tobramycin (Tobramycin) 0.3 % Drops, 2 DROPS OU QID, (Reported) Entered as Reported by: JAKUB REYES on 04/24/22 1119 Valproic Acid (As Sodium Salt) (Valproic Acid) 250 Mg/5 Ml Solution, 20 ML PEG BID, (Reported) Entered as Reported by: JAKUB REYES on 04/24/22 1117 Past Oafffib-Jdprrt-Pejrje Hx Reviewed Nursing Assessment Reviewed/Agree w Nursing PMH: Yes Family Medical History Significant Family History: No Pertinent Family Hx Review of Systems-General ROS-Unable to Obtain: intubated unable to provide Physical Exam-General Problems Physical Exam General Appearance: obese, other (ill appearing, intubated) HEENT: PERRL/EOMI, other (et tube) Neck: supple, normal inspection Respiratory: decreased breath sounds (on right), other (on vent) Cardiovascular: regular rate, rhythm, no JVD Gastrointestinal: non tender, soft Rectal: deferred Back: no CVA tenderness Extremities: pedal edema, slow capillary refill Neurologic/Psychiatric: alert, other (reponds to name) Skin: warm/dry, other (sacral decubitus ulcer- ping pong ball size, clean with some induration at margins, no purulence, some good granulation tissue at base stage 3/4) Lymphatic: no adenopathy Assessment/Plan Assessment/Plan Assessment/Plan sacral decubitus ulcer stage 3/4 pneumonia and uti intellectual disability acute respiratory failure -on vent continue wound care and monitor continue abx- zosyn and vanc right femoral line, no signs of infection Picc line thursday Supervisory-Addendum Brief Verification & Attestation Participated in pt care: history, MDM, physical Personally performed: exam, history, MDM, supervision of care Care discussed with: Medical Student Procedures: n/a Results interpretation: Verified all documentation Verification and Attestation of Medical Student E/M Service A medical student performed and documented this service in my presence. I reviewed and verified all information documented by the medical student and made modifications to such information, when appropriate. I personally performed the physical exam and medical decision making. Lino Reed, Jul 19, 2022,21:07 CHINO GARDNER Jul 19, 2022 17:03 LINO REED DO Jul 19, 2022 20:54
[2022-07-19] MEDS: ENOXAPARIN 40 MG/0.4 ML (LOVENOX) SYR SQ SCH (18:08)
[2022-07-19] MEDS ORDERED: NS IV 1000 ML 1,000 ML IV SCH (18:15)
[2022-07-19 18:25] VITALS: BP 170/72
[2022-07-19 21:09] VITALS: BP 112/65
[2022-07-20] MEDS: PROPOFOL DRIP (ICU) 100 ML IV SCH ×3 (00:59→16:39)
[2022-07-20 02:22] VITALS: BP 127/64
[2022-07-20] MEDS: RT-ALBUTEROL/IPRATROPIUM 3 ML (DUONEB) VIAL INH SCH ×6 (02:22→21:59)
[2022-07-20 04:50] LABS: BASOPHILS % (AUTO) 0 % (0-10); EOSINOPHILS # (AUTO) 0.1 10^3/uL (0.0-0.3); EOSINOPHILS % (AUTO) 0 % (0-10); HEMATOCRIT 28 % (35-52); HEMOGLOBIN 9.1 g/dL (11.5-16.0); LYMPHOCYTES # (AUTO) 1.7 10^3/uL (1.0-4.0); LYMPHOCYTES % (AUTO) 12 % (12-44); MEAN CORPUSCULAR HEMOGLOBIN 32 pg (25-34); MEAN CORPUSCULAR HGB CONC 32 g/dL (32-36); MEAN CORPUSCULAR VOLUME 98 fL (80-99); MEAN PLATELET VOLUME 9.6 fL (9.0-12.2); MONOCYTES # (AUTO) 1.2 10^3/uL (0.0-1.0); MONOCYTES % (AUTO) 8 % (0-12); NEUTROPHILS # (AUTO) 11.1 10^3/uL (1.8-7.8); NEUTROPHILS % (AUTO) 79 % (42-75); PLATELET COUNT 320 10^3/uL (130-400); WHITE BLOOD COUNT 14.1 10^3/uL (4.3-11.0)
[2022-07-20] MEDS: NS IV 1000 ML 1,000 ML IV SCH ×3 (04:53→17:52)
[2022-07-20 05:19] LABS: BILIRUBIN,TOTAL 0.2 MG/DL (0.1-1.0); CALCIUM 8.3 MG/DL (8.5-10.1); CREATININE SERUM 0.53 MG/DL (0.60-1.30); MAGNESIUM 1.6 MG/DL (1.6-2.4); POTASSIUM 2.9 MMOL/L (3.6-5.0); TOTAL PROTEIN 5.3 GM/DL (6.4-8.2)
[2022-07-20 05:26] LABS: VANCOMYCIN,TROUGH 22.5 UG/ML (10.0-20.0)
[2022-07-20 05:42] LABS: ABG BASE EXCESS -2.4 MMOL/L (-2.5-2.5); ABG OXYGEN SATURATION 90 % (94-100); ABG PCO2 30 MMHG (35-45); ABG PH 7.46 (7.37-7.43); ABG PO2 51 MMHG (79-93); ABG TCO2 21.9 MMOL/L (21.0-31.0)
[2022-07-20 05:45] LABS: ALLENS TEST YES-POS
[2022-07-20 05:46] LABS: INSPIRED O2 16; PATIENT TEMP 37; VENTILATOR YES
[2022-07-20] MEDS ORDERED: TROUGH ORDER-PHARMACY XX NR (06:00)
[2022-07-20] MEDS: MAGNESIUM 1 GM/100 ML IVPB 100 ML IV SCH ×3 (06:00→08:10)
[2022-07-20] MEDS: POTASSIUM CL 10MEQ/50ML IVPB 50 ML IV SCH ×4 (06:00→08:11)
[2022-07-20] MEDS: KCL 20 MEQ TAB (K-DUR) PO SCH (06:00)
[2022-07-20] MEDS: PIPERACILLIN SODIUM/TAZOBACTAM 4.5 GM in NS (IVPB) 100 ML IV SCH ×3 (06:30→23:23)
--- NOTE | 2022-07-20 06:34 | Progress Note - Surgery ---
JJCHINO 07/20/22 0634: Subjective Date Seen by a Provider: Jul 20, 2022 Time Seen by a Provider: 06:29 Subjective/Events-last exam Pt is sedated on presentation, sedation was previously increased per nurse as pt was tachycardic. Wound appears stable and is irrigated/redressed while I am present. Focused Exam Lactate Level 07/18/22 16:40: Lactic Acid Level 1.88 07/18/22 19:40: Lactic Acid Level 1.90 Time of Focused Exam: 15:00 Objective Exam Vital Signs Date Time Temp Pulse Resp B/P (MAP) Pulse Ox O2 Delivery O2 Flow Rate FiO2 07/20/22 06:00 89 16 113/58 (76) 94 Mechanical Ventilator 30.00 07/20/22 05:00 92 16 101/61 (74) 94 Mechanical Ventilator 30.00 07/20/22 04:00 91 Mechanical Ventilator 30 07/20/22 04:00 104 16 103/56 (72) 90 Mechanical Ventilator 30.00 07/20/22 03:00 113 16 98/55 (69) 92 Mechanical Ventilator 30.00 07/20/22 02:22 89 16 93 30 07/20/22 02:00 81 16 91/54 (66) 96 Mechanical Ventilator 30.00 07/20/22 01:00 95 16 126/65 (85) 91 Mechanical Ventilator 30.00 07/20/22 01:00 84 07/20/22 01:00 85 16 126/65 (85) 91 Mechanical Ventilator 30.00 07/20/22 00:00 87 16 141/73 (95) 96 Mechanical Ventilator 30.00 07/19/22 23:59 95 Mechanical Ventilator 30 07/19/22 23:00 91 16 141/72 (95) 94 Mechanical Ventilator 30.00 07/19/22 22:00 100 16 85/47 (60) 95 Mechanical Ventilator 30.00 07/19/22 21:09 93 16 96 30 07/19/22 21:00 94 16 116/65 (82) 95 Mechanical Ventilator 30.00 07/19/22 20:00 37.2 07/19/22 20:00 100 16 91/61 (71) 94 Mechanical Ventilator 30.00 07/19/22 20:00 95 Mechanical Ventilator 30 07/19/22 19:00 105 16 109/64 (79) 90 Mechanical Ventilator 30.00 07/19/22 19:00 99 109/64 07/19/22 19:00 78 07/19/22 18:25 93 16 96 30 07/19/22 18:00 97 16 107/58 (74) 96 Mechanical Ventilator 30.00 07/19/22 17:00 92 16 120/71 (87) 96 Mechanical Ventilator 30.00 07/19/22 16:00 96 Mechanical Ventilator 30 07/19/22 16:00 96 16 115/68 (84) 96 Mechanical Ventilator 30.00 07/19/22 16:00 37.1 07/19/22 15:48 100 125/71 07/19/22 15:18 94 16 97 30 07/19/22 15:00 90 16 103/65 (78) 97 Mechanical Ventilator 30.00 07/19/22 14:00 89 16 135/77 (96) 97 Mechanical Ventilator 50.00 07/19/22 13:00 89 16 117/67 (84) 97 Mechanical Ventilator 50.00 07/19/22 12:59 88 07/19/22 12:00 87 16 137/73 (94) 98 Mechanical Ventilator 50.00 07/19/22 12:00 97 Mechanical Ventilator 40 07/19/22 12:00 37.4 07/19/22 11:00 94 16 140/73 (95) 98 Mechanical Ventilator 50.00 07/19/22 10:27 96 16 97 45 07/19/22 10:00 102 16 125/77 (93) 97 Mechanical Ventilator 50.00 07/19/22 09:54 90 124/70 07/19/22 09:26 Mechanical Ventilator 50.00 07/19/22 09:00 101 16 108/71 (83) 98 Mechanical Ventilator 60.00 07/19/22 08:22 37.3 07/19/22 08:01 Mechanical Ventilator 60.00 07/19/22 08:00 106 16 107/70 (82) 97 Mechanical Ventilator 70.00 07/19/22 08:00 98 Mechanical Ventilator 60 07/19/22 08:00 37.4 07/19/22 07:20 91 16 98 60 07/19/22 07:00 92 16 103/68 (80) 97 Mechanical Ventilator 70.00 07/19/22 07:00 94 I & O 07/20/22 07:00 Intake Total 3450 ml Output Total 1150 ml Balance 2300 ml Capillary Refill : Greater Than 3 Seconds General Appearance: No Apparent Distress, Chronically ill, Obese, Other (sedated on vent) HEENT: No Scleral Icterus (L), No Scleral Icterus (R); Other (dry mucous membranes, ETT and OGT) Neck: Other (large neck; poor ROM) Respiratory: Decreased Breath Sounds, Other (on vent) Cardiovascular: No JVD, No Murmur Peripheral Pulses: 2+ Radial Pulses (R), 2+ Radial Pulses (L) Gastrointestinal: non tender, soft Extremity: Normal Capillary Refill, Pedal Edema Neurologic/Psychiatric: Other (does not respond or follow commands, on sedation) Skin: Warm/Dry, Mottled (feet and chest), Other (sacral decubitus ulcer stage 3/4, clean, no purulence) Results Lab Laboratory Tests 07/19/22 07:10: Blood Gas Puncture Site RIGHT BRACHIAL, Blood Gas Patient Temperature 37, Arterial Blood pH 7.43, Arterial Blood Partial Pressure CO2 39, Arterial Blood Partial Pressure O2 79, Arterial Blood HCO3 25, Arterial Blood Total CO2 26.1, Arterial Blood Oxygen Saturation 97, Arterial Blood Base Excess 1.0, Johnathan Test POSITIVE, Blood Gas Ventilator Setting YES, Blood Gas Inspired Oxygen 70% 07/19/22 12:37: Potassium Level 3.6 07/20/22 04:30: Potassium Level 2.9L, White Blood Count 14.1H, Red Blood Count 2.89L, Hemoglobin 9.1L, Hematocrit 28L, Mean Corpuscular Volume 98, Mean Corpuscular Hemoglobin 32, Mean Corpuscular Hemoglobin Concent 32, Red Cell Distribution Width 14.4, Platelet Count 320, Mean Platelet Volume 9.6, Immature Granulocyte % (Auto) 1, Neutrophils (%) (Auto) 79H, Lymphocytes (%) (Auto) 12, Monocytes (%) (Auto) 8, Eosinophils (%) (Auto) 0, Basophils (%) (Auto) 0, Neutrophils # (Auto) 11.1H, Lymphocytes # (Auto) 1.7, Monocytes # (Auto) 1.2H, Eosinophils # (Auto) 0.1, Basophils # (Auto) 0.0, Immature Granulocyte # (Auto) 0.1, Sodium Level 146H, Chloride Level 116H, Carbon Dioxide Level 18L, Anion Gap 12, Blood Urea Nitrogen 9, Creatinine 0.53L, Estimat Glomerular Filtration Rate 107, BUN/Creatinine Ratio 17, Glucose Level 116H, Calcium Level 8.3L, Corrected Calcium 9.9, Phosphorus Level 3.0, Magnesium Level 1.6, Total Bilirubin 0.2, Aspartate Amino Transf (AST/SGOT) 15, Alanine Aminotransferase (ALT/SGPT) 6, Alkaline Phosphatase 67, Total Protein 5.3L, Albumin 2.0L, Vancomycin Level Trough 22.5H 07/20/22 05:30: Blood Gas Puncture Site LEFT BRACHIAL, Blood Gas Patient Temperature 37, Arterial Blood pH 7.46H, Arterial Blood Partial Pressure CO2 30L, Arterial Blood Partial Pressure O2 51L, Arterial Blood HCO3 21L, Arterial Blood Total CO2 21.9, Arterial Blood Oxygen Saturation 90L, Arterial Blood Base Excess -2.4, Johnathan Test YES-POS, Blood Gas Ventilator Setting YES, Blood Gas Inspired Oxygen 16 Microbiology 07/18/22 Blood Culture - Preliminary, Resulted No growth Assessment/Plan Assessment/Plan Assessment/Plan sacral decubitus ulcer stage 3/4- no change pneumonia and uti intellectual disability acute respiratory failure -on vent continue wound care and monitor continue abx- zosyn and vanc right femoral line, no signs of infection Picc line thursday DONNA HOPKINS DO 07/20/22 1350: Subjective Subjective/Events-last exam Patient intubated and sedated. No family at bedside. Overnight was more tachycardic and uncomfortable therefore and sedation was increased. Objective Exam General Appearance: No Apparent Distress, Chronically ill, Other (sedated on vent) HEENT: PERRL/EOMI, Normal ENT Inspection Neck: Non Tender, Supple Respiratory: Other (on vent, equal chest rise) Cardiovascular: Regular Rate, Rhythm, No JVD Gastrointestinal: non tender, soft Extremity: Normal Capillary Refill, Pedal Edema Neurologic/Psychiatric: Other (does not respond or follow commands, on sedation) Skin: Warm/Dry, Other (sacral decubitus ulcer stage 3/4, clean, no purulence) Lymphatic: No Adenopathy Assessment/Plan Assessment/Plan Assessment/Plan sacral decubitus ulcer stage 3/4- no change pneumonia and uti intellectual disability acute respiratory failure -on vent continue wound care and monitor continue abx- zosyn and vanc right femoral line, no signs of infection Picc line thursday Supervisory-Addendum Brief Verification & Attestation Participated in pt care: history, MDM, physical Personally performed: exam, history, MDM, supervision of care Care discussed with: Medical Student Procedures: n/a Results interpretation: Verified all documentation Verification and Attestation of Medical Student E/M Service A medical student performed and documented this service in my presence. I reviewed and verified all information documented by the medical student and made modifications to such information, when appropriate. I personally performed the physical exam and medical decision making. Donna Hopkins, Jul 20, 2022,13:50 CHINO GARDNER Jul 20, 2022 06:34 DONNA HOPKINS DO Jul 20, 2022 13:50
[2022-07-20 06:59] VITALS: BP 106/59
[2022-07-20] MEDS: PANTOPRAZOLE 40 MG (PROTONIX) VIAL IV SCH (08:11)
--- NOTE | 2022-07-20 08:59 | Tele-ICU Progress Note ---
Subjective Date Seen by a Provider: Jul 20, 2022 Subjective/Events-last exam This virtual visit was conducted using real time audio/video. Thank you for asking us to see this patient for respiratory insufficiency due to pna, atelectasis and severe sepsis. Severe intellectual impairment. PE: VSS. O2 sat 92% on AC16/450/30%/+5. HEENT: No obvious masses, adenopathy or JVD. Chest: diminished and coarse on R. CV: RRR S1 S2 No murmur or added sounds. Abd: Non-tender. Bowel sounds Y. : Unremarkable. Pichardo Y. [employer]/psychiatric: Sedated on vent. Extremities: 1+ edema. Capillary refill < 3 seconds. Skin: unremarkable. Results: Elevated WCC 14.1 improved, BG 116, Na 146. Decreased Hb 9.1, K 2.9. B.46/30/51 on 30%/+5. CXR: Unchanged R atel., infilt. Available chart/ vitals / labs / images reviewed. Video assessment done using teleICU camera, rest of exam as per RN. A/P: Respiratory insufficiency: Continue present management with vent, duonebs, Prec., Prop. Wean O2 as remington. Has rep alkalosis, so TV decreased to 400, set rate decreased to 12. No SBT today due to marginal oxygenation, resp. alk. and hypernatremia Critical Care: critically ill patient. Cont.abx, synth., PPI, Mary Ellen. Replace K. Consider more free H2O. Discussed with AGUEDA Caldera. Asked RN to reach out to eICU if any questions or concerns later. Time spent with patient/coordination of care with other health professionals (mins):25 Sepsis Event Evaluation Height, Weight, BMI Height: '" Weight: lbs. oz. kg; 33.05 BMI Method: Focused Exam Lactate Level 07/18/22 16:40: Lactic Acid Level 1.88 07/18/22 19:40: Lactic Acid Level 1.90 Time of Focused Exam: 15:00 Exam Exam Patient acknowledged, consented, and participated in this virtual visit which was conducted using real time audio/video Vital Signs Date Time Temp Pulse Resp B/P (MAP) Pulse Ox O2 Delivery O2 Flow Rate FiO2 07/20/22 08:34 123 110/59 07/20/22 08:00 123 16 91/52 (65) 92 Mechanical Ventilator 30.00 07/20/22 08:00 37.8 07/20/22 07:00 132 07/20/22 07:00 85 36 94/49 (64) 94 Mechanical Ventilator 30.00 07/20/22 06:59 84 16 94 30 07/20/22 06:00 89 16 113/58 (76) 94 Mechanical Ventilator 30.00 07/20/22 05:00 100 20 92 07/20/22 05:00 92 16 101/61 (74) 94 Mechanical Ventilator 30.00 07/20/22 04:00 91 Mechanical Ventilator 30 07/20/22 04:00 104 16 103/56 (72) 90 Mechanical Ventilator 30.00 07/20/22 04:00 37.7 07/20/22 03:00 113 16 98/55 (69) 92 Mechanical Ventilator 30.00 07/20/22 02:22 89 16 93 30 07/20/22 02:00 81 16 91/54 (66) 96 Mechanical Ventilator 30.00 07/20/22 01:00 95 16 126/65 (85) 91 Mechanical Ventilator 30.00 07/20/22 01:00 84 07/20/22 01:00 85 16 126/65 (85) 91 Mechanical Ventilator 30.00 07/20/22 00:00 87 16 141/73 (95) 96 Mechanical Ventilator 30.00 07/19/22 23:59 95 Mechanical Ventilator 30 07/19/22 23:00 91 16 141/72 (95) 94 Mechanical Ventilator 30.00 07/19/22 22:00 100 16 85/47 (60) 95 Mechanical Ventilator 30.00 07/19/22 21:09 93 16 96 30 07/19/22 21:00 94 16 116/65 (82) 95 Mechanical Ventilator 30.00 07/19/22 20:00 37.2 07/19/22 20:00 100 16 91/61 (71) 94 Mechanical Ventilator 30.00 07/19/22 20:00 95 Mechanical Ventilator 30 07/19/22 19:00 105 16 109/64 (79) 90 Mechanical Ventilator 30.00 07/19/22 19:00 99 109/64 07/19/22 19:00 78 07/19/22 18:25 93 16 96 30 07/19/22 18:00 97 16 107/58 (74) 96 Mechanical Ventilator 30.00 07/19/22 17:00 92 16 120/71 (87) 96 Mechanical Ventilator 30.00 07/19/22 16:00 96 Mechanical Ventilator 30 07/19/22 16:00 96 16 115/68 (84) 96 Mechanical Ventilator 30.00 07/19/22 16:00 37.1 07/19/22 15:48 100 125/71 07/19/22 15:18 94 16 97 30 07/19/22 15:00 90 16 103/65 (78) 97 Mechanical Ventilator 30.00 07/19/22 14:00 89 16 135/77 (96) 97 Mechanical Ventilator 50.00 07/19/22 13:00 89 16 117/67 (84) 97 Mechanical Ventilator 50.00 07/19/22 12:59 88 07/19/22 12:00 87 16 137/73 (94) 98 Mechanical Ventilator 50.00 07/19/22 12:00 97 Mechanical Ventilator 40 07/19/22 12:00 37.4 07/19/22 11:00 94 16 140/73 (95) 98 Mechanical Ventilator 50.00 07/19/22 10:27 96 16 97 45 07/19/22 10:00 102 16 125/77 (93) 97 Mechanical Ventilator 50.00 07/19/22 09:54 90 124/70 07/19/22 09:26 Mechanical Ventilator 50.00 07/19/22 09:00 101 16 108/71 (83) 98 Mechanical Ventilator 60.00 I & O 07/20/22 07:00 Intake Total 3450 ml Output Total 1350 ml Balance 2100 ml Height & Weight Height: '" Weight: lbs. oz. kg; 33.05 BMI Method: General Appearance: No Apparent Distress, Chronically ill, Obese, Other (sedated on vent) HEENT: No Scleral Icterus (L), No Scleral Icterus (R); Other (dry mucous membranes, ETT and OGT) Neck: Other (large neck; poor ROM) Respiratory: Decreased Breath Sounds, Other (on vent) Cardiovascular: No JVD, No Murmur Capillary Refill: Greater Than 3 Seconds Peripheral Pulses: 2+ Radial Pulses (R), 2+ Radial Pulses (L) Gastrointestinal: non tender, soft Extremity: Normal Capillary Refill, Pedal Edema Neurologic/Psychiatric: Other (does not respond or follow commands, on sedation) Skin: Warm/Dry, Mottled (feet and chest), Other (sacral decubitus ulcer stage 3/4, clean, no purulence) Results Lab Laboratory Tests 07/18/22 11:04 07/19/22 05:15 07/19/22 12:37 07/20/22 04:30 Assessment/Plan Assessment/Plan See free text. Critical Care: Ventilator Management RITCHIE PRUITT MD Jul 20, 2022 08:59
[2022-07-20 09:21] VITALS: BP 110/62
--- NOTE | 2022-07-20 09:36 | Diagnostic Imaging Report ---
History: On ventilator, pneumonia, sepsis COMPARISON: 07/19/2022 TECHNIQUE: Frontal view the chest FINDINGS: Bibasilar airspace opacities appear mildly increased since the prior exam. There is a small right pleural effusion. The endotracheal tube is about 4 cm above the josh. The cardiac silhouette is stable in size. Multiple leads overlie the chest. IMPRESSION: 1. Bibasilar airspace opacities appear mildly increased since the prior study. This may be due to atelectasis or infection. 2. Small right pleural effusion. Dictated by: Dictated on workstation # [id number]
[2022-07-20] MEDS: NOREPINEPHRINE 8 MG/250 ML 250 ML IV SCH (09:57)
--- NOTE | 2022-07-20 12:38 | Progress Note - Hospitalist ---
Subjective HPI/CC On Admission Date Seen by Provider: Jul 20, 2022 Patient is a 57yo female with a past medical history of intellectual disability with chronic indwelling Suarez and PEG tube dependence presented to the emergency department due to altered mental status and hypoxia. She was intubated on arrival so unable to provide any history. Apparently she was found by her nursing facility hypoxic and this did not improve with oxygen. On a rrival to the emergency department she was nearly obtunded and mottled and sats dropped into the 60s. She was emergently intubated. She was found to have a right-sided pneumonia and urinary tract infection and is admitted to the ICU for further management. Subjective/Events-last exam Pt remains intuabted and sedated.No concerns per RN. Focused Exam Lactate Level 07/18/22 16:40: Lactic Acid Level 1.88 07/18/22 19:40: Lactic Acid Level 1.90 Time of Focused Exam: 15:00 Objective Exam Vital Signs Vital Signs Date Time Temp Pulse Resp B/P (MAP) Pulse Ox O2 Delivery O2 Flow Rate FiO2 07/20/22 12:00 99 16 110/64 (79) 97 Mechanical Ventilator 30.00 07/20/22 09:21 30 07/20/22 08:00 37.8 Capillary Refill : Greater Than 3 Seconds General Appearance: Chronically ill, Other (sedated, on vent) Respiratory: Lungs Clear, Other (on vent) Cardiovascular: Regular Rate, Rhythm, No Murmur Gastrointestinal: Normal Bowel Sounds, Soft Neurologic/Psychiatric: Alert, Oriented x3 Results/Procedures Lab Laboratory Tests 07/20/22 04:30 Patient resulted labs reviewed. Imaging: Reviewed Imaging Report Assessment/Plan Assessment and Plan Assess & Plan/Chief Complaint Septic Shock Acute hypoxic respiratory failure Pneumonia CAUTI Continue on Vanc and Zosyn Maintained on vent- managed by [facility]- appreciate their help- has weaned down on settings Cultures from sputum pending- urine with GNR x2 Intellectual disability PEG dependent Chronic indwelling suarez No acute needs, resume home feeds when able Hypothyroidism Continue home Synthroid when able Critical Care Ventilator Management Diagnosis/Problems Diagnosis/Problems (1) Intellectual disability (2) PEG (percutaneous endoscopic gastrostomy) status (3) Suarez catheter in place (4) Septic shock (5) Decubitus ulcer of coccygeal region, stage 4 Status: Acute (6) Urinary tract infection Status: Acute (7) Hypothyroidism CHARAN WATERS MD Jul 20, 2022 12:38
[2022-07-20 13:33] LABS: POTASSIUM 3.8 MMOL/L (3.6-5.0)
[2022-07-20 13:34] LABS: CALCIUM 8.3 MG/DL (8.5-10.1)
[2022-07-20 13:39] LABS: CREATININE SERUM 0.52 MG/DL (0.60-1.30)
[2022-07-20 14:42] VITALS: BP 135/74
[2022-07-20] MEDS: DexMEDEtomidine 250 ML DRIP 250 ML IV SCH (14:50)
[2022-07-20] MEDS: ENOXAPARIN 40 MG/0.4 ML (LOVENOX) SYR SQ SCH (16:39)
[2022-07-20] MEDS: VANCOMYCIN 1 GM/NS 250 ML IVPB IV SCH ×2 (16:39)
[2022-07-20 18:23] VITALS: BP 104/54
[2022-07-20 21:59] VITALS: BP 122/68
[2022-07-21] VITALS (7 sets, daily range): BP systolic 109–185; BP diastolic 55–88
[2022-07-21] MEDS: NOREPINEPHRINE 8 MG/250 ML 250 ML IV SCH ×2 (00:45→17:21)
[2022-07-21] MEDS: NS IV 1000 ML 1,000 ML IV SCH ×3 (01:15→08:14)
[2022-07-21] MEDS: RT-ALBUTEROL/IPRATROPIUM 3 ML (DUONEB) VIAL INH SCH ×6 (02:46→22:06)
[2022-07-21] MEDS: PROPOFOL DRIP (ICU) 100 ML IV SCH ×2 (03:41→17:20)
[2022-07-21 03:53] LABS: BASOPHILS # (AUTO) 0.1 10^3/uL (0.0-0.1); BASOPHILS % (AUTO) 0 % (0-10); EOSINOPHILS # (AUTO) 0.2 10^3/uL (0.0-0.3); EOSINOPHILS % (AUTO) 1 % (0-10); HEMATOCRIT 29 % (35-52); HEMOGLOBIN 9.2 g/dL (11.5-16.0); LYMPHOCYTES # (AUTO) 1.7 10^3/uL (1.0-4.0); LYMPHOCYTES % (AUTO) 14 % (12-44); MEAN CORPUSCULAR HEMOGLOBIN 31 pg (25-34); MEAN CORPUSCULAR HGB CONC 32 g/dL (32-36); MEAN CORPUSCULAR VOLUME 99 fL (80-99); MEAN PLATELET VOLUME 9.3 fL (9.0-12.2); MONOCYTES # (AUTO) 1.1 10^3/uL (0.0-1.0); MONOCYTES % (AUTO) 9 % (0-12); NEUTROPHILS % (AUTO) 74 % (42-75); PLATELET COUNT 335 10^3/uL (130-400); WHITE BLOOD COUNT 12.1 10^3/uL (4.3-11.0)
[2022-07-21 04:14] LABS: ALBUMIN 2.1 GM/DL (3.2-4.5); BILIRUBIN,TOTAL 0.2 MG/DL (0.1-1.0); CALCIUM 8.3 MG/DL (8.5-10.1); CREATININE SERUM 0.5 MG/DL (0.60-1.30); MAGNESIUM 1.7 MG/DL (1.6-2.4); PHOSPHORUS 3.5 MG/DL (2.3-4.7); POTASSIUM 3.4 MMOL/L (3.6-5.0); TOTAL PROTEIN 5.5 GM/DL (6.4-8.2)
[2022-07-21] MEDS: POTASSIUM CL 10MEQ/50ML IVPB 50 ML IV SCH ×3 (04:30→05:48)
[2022-07-21] MEDS: MAGNESIUM 1 GM/100 ML IVPB 100 ML IV SCH ×3 (04:30→05:48)
[2022-07-21] MEDS: KCL 20 MEQ TAB (K-DUR) PO SCH (04:30)
--- NOTE | 2022-07-21 06:47 | Occ Therapy Progress Note ---
Therapy Progress Note Pt is currently intubated. OT to monitor pt's status then will initiate treatment when pt is medically stable and able to actively participate in skilled therapy. SIS ORANTES Jul 21, 2022 06:47
[2022-07-21] MEDS: PIPERACILLIN SODIUM/TAZOBACTAM 4.5 GM in NS (IVPB) 100 ML IV SCH ×3 (06:59→23:43)
--- NOTE | 2022-07-21 07:54 | Physical Therapy Progress Note ---
Therapy Progress Note Patient currently intubated. Will monitor and start when appropriate and patient can participate. DINA HANSEN PT Jul 21, 2022 07:54
[2022-07-21] MEDS: PANTOPRAZOLE 40 MG (PROTONIX) VIAL IV SCH (08:15)
--- NOTE | 2022-07-21 08:55 | Diagnostic Imaging Report ---
INDICATION: Pneumonia and sepsis. The patient is intubated. COMPARISON: 07/20/2022. FINDINGS: There remains some left basilar infiltrate in the right lung base though there is improved aeration. Left lung is now clear. Heart is not enlarged. The pulmonary vasculature is normal. ET tube remains in good position under the tracheal shadow. IMPRESSION: Overall improvement with clear left lung. Some mild residual infiltrate and atelectasis remaining on the right. Dictated by: Dictated on workstation # [id number]
[2022-07-21] MEDS ORDERED: NS IV 1000 ML 1,000 ML IV SCH (09:39)
--- NOTE | 2022-07-21 09:49 | Tele-ICU Progress Note ---
Subjective Date Seen by a Provider: Jul 21, 2022 Time Seen by a Provider: 09:45 Subjective/Events-last exam (Tele-ICU Physician , Progress Note ) Service provided via interactive audio and video telecommunications E-CARE system to a patient admitted to ICU bed in [facility]. Available chart/ vitals / labs / Images reviewed Video assessment done using teleICU camera, rest of exam as per RN Discussed with RN Events overnight : Afebrile hemodynamically stable Respiratory - I/O = pos Drips: Pressors- OFF LEVO 07/21 VENT SETTINGS and ABG reviewed Sedation: RASS discussed with RN , CANDIDATE for SBTreviewed possible contraindications including Cardiovascular Stability /Sedation Score / FI02/PEEP / ABG / CXR/ secretions Consultants: Hospital course: 07/18 from [place] with hypoxia , intubated 07/21/22 - AC12/400/30%/+5. A/P Acute hypoxic resp failure with PNA - Intubated 07/18 AC12/400/30%/+5. - secreatins and cxr are better- will monitor , start to assess for possible vent liberation Shock - OFF levo this am - decrease IVF , will monitor PNA ( HAP ) with mucous pluging resulting in atelectasisi with significant volume loss on RIGHT side Sputum cx 07/18 - PSA , sens pending - agressive nebs and chest PT- IMPROVING - follow cxr UTI - chronic indwelling suarez catheter (previius cx + Enterococcus faecium ( sens to dapto and linexolid ) + Pseudomonas aeruginosa= pansensitive h/o osteomyelitis 04/2022 secondary to stage IV sacral decubitus ulcer - multiple organism in cx , including acinetobacter ( sens to minicy[place] only ) ( - s/p wound vac - removed after debrigement ) - WOUNG care and Sx follows h/o anemia ( precented with Hb 14 , now 9 - presumed delutional ) - stable Hb now h/p cognitive impairment - on precedex for anxiety now Nutrition - s/p PEG Elv TGL - decreasing propofol - off planned Lines : , right femoral 07/18 (Central Line Necessity Reviewed) Suarez: chronic indwelling suarez catheter OG: Nutrition: to start TF 07/21 Analgesia: Anxiety/ delirium VTE Prophylaxis: marco 40 Stress Ulcer Prophylaxis: PPI Plans in collaboration with bedside consultants and IM MDs. Discussed with RN to reach out if any questions or concerns A total of 35 minutes of critical care time was devoted to this patient today, required to treat and/or prevent further deterioration of critical care condition ( as above ) . I am remotely monitoring this patient from another state. I am unable to do the bedside exam, and history/physical and pertinent information is taken from other notes in the computer and bedside staff. Sepsis Event Evaluation Height, Weight, BMI Height: '" Weight: lbs. oz. kg; 33.77 BMI Method: Focused Exam Lactate Level 07/18/22 16:40: Lactic Acid Level 1.88 07/18/22 19:40: Lactic Acid Level 1.90 Time of Focused Exam: 15:00 Exam Exam Patient acknowledged, consented, and participated in this virtual visit which was conducted using real time audio/video Vital Signs Date Time Temp Pulse Resp B/P (MAP) Pulse Ox O2 Delivery O2 Flow Rate FiO2 07/21/22 09:00 100 15 90/53 (65) 94 07/21/22 08:00 89 16 88/58 (68) 96 07/21/22 08:00 95 Mechanical Ventilator 30 07/21/22 07:00 90 16 139/70 (93) 96 07/21/22 07:00 92 07/21/22 06:52 92 16 96 30 07/21/22 06:15 94 13 124/63 (86) 96 07/21/22 06:00 91 14 144/76 (99) 97 07/21/22 05:45 91 14 134/71 (94) 96 07/21/22 05:45 91 14 134/71 (94) 96 07/21/22 05:30 92 16 141/73 (99) 97 07/21/22 05:30 92 16 141/73 (99) 97 07/21/22 05:15 94 15 142/70 (97) 96 07/21/22 05:15 94 15 142/70 (97) 96 07/21/22 05:00 95 14 139/68 (96) 96 07/21/22 05:00 95 14 139/68 (96) 96 07/21/22 05:00 100 20 97 07/21/22 05:00 139/68 (96) 07/21/22 04:45 93 12 131/66 (89) 96 07/21/22 04:30 105 17 101/50 (65) 94 07/21/22 04:15 106 17 105/56 (74) 94 07/21/22 04:00 94 Mechanical Ventilator 30 07/21/22 04:00 108 17 108/60 (76) 93 Mechanical Ventilator 30.00 07/21/22 03:00 109 18 132/64 (86) 95 Mechanical Ventilator 30.00 07/21/22 02:39 98 14 95 30 07/21/22 02:15 101 15 146/69 (98) 96 07/21/22 02:00 36.4 102 15 142/71 (98) 96 07/21/22 01:45 103 16 142/69 (95) 96 07/21/22 01:30 104 16 145/68 (96) 95 07/21/22 01:15 102 18 147/75 (103) 95 07/21/22 01:00 105 19 124/64 (87) 94 07/21/22 01:00 103 07/21/22 00:45 103 17 138/68 (95) 95 07/21/22 00:45 103 17 138/68 (95) 95 07/21/22 00:45 103 17 138/68 (95) 95 07/21/22 00:30 109 14 118/58 (80) 94 07/21/22 00:30 109 14 118/58 (80) 94 07/21/22 00:17 108 16 94 07/21/22 00:15 109 17 125/63 (85) 95 07/21/22 00:15 109 17 125/63 (85) 95 07/21/22 00:02 107 18 95 07/20/22 23:59 94 Mechanical Ventilator 30 07/20/22 23:47 106 16 96 07/20/22 23:45 105 17 139/68 (95) 95 07/20/22 23:45 105 17 139/68 (95) 95 07/20/22 23:32 106 15 96 07/20/22 23:30 105 21 139/71 (97) 95 07/20/22 23:30 105 21 139/71 (97) 95 07/20/22 23:17 107 16 95 07/20/22 23:15 107 15 135/68 (92) 96 07/20/22 23:15 107 15 135/68 (92) 96 07/20/22 23:02 110 17 95 07/20/22 23:01 108 18 95 07/20/22 23:00 109 15 139/71 (93) 96 Mechanical Ventilator 30.00 07/20/22 23:00 109 16 134/69 (94) 95 07/20/22 23:00 109 16 134/69 (94) 95 07/20/22 22:47 109 19 95 07/20/22 22:46 109 17 95 07/20/22 22:45 107 14 129/67 (86) 95 07/20/22 22:45 107 14 129/67 (86) 95 07/20/22 22:32 111 16 95 07/20/22 22:31 110 18 95 07/20/22 22:30 111 18 130/67 (88) 95 07/20/22 22:30 111 18 130/67 (88) 95 07/20/22 22:17 112 14 93 07/20/22 22:16 110 18 94 07/20/22 22:00 104 18 129/67 (87) 95 Mechanical Ventilator 30.00 07/20/22 21:59 106 16 95 30 07/20/22 21:00 101 15 136/69 (91) 95 Mechanical Ventilator 30.00 07/20/22 20:00 94 Mechanical Ventilator 30 07/20/22 20:00 92 16 138/71 (93) 96 Mechanical Ventilator 30.00 07/20/22 19:00 106 07/20/22 19:00 105 15 140/68 (92) 94 Mechanical Ventilator 30.00 07/20/22 18:23 101 15 94 30 07/20/22 18:00 92 17 100/54 (69) 96 Mechanical Ventilator 30.00 07/20/22 17:00 92 17 116/65 (82) 96 Mechanical Ventilator 30.00 07/20/22 16:46 94 Mechanical Ventilator 30 07/20/22 16:39 92 133/76 07/20/22 16:00 98 14 136/74 (94) 96 Mechanical Ventilator 30.00 07/20/22 15:42 37.1 07/20/22 15:00 98 15 137/75 (95) 96 Mechanical Ventilator 30.00 07/20/22 14:50 95 118/73 07/20/22 14:42 95 16 96 30 07/20/22 14:00 93 15 136/76 (96) 96 Mechanical Ventilator 30.00 07/20/22 13:00 92 16 115/67 (83) 97 Mechanical Ventilator 30.00 07/20/22 12:59 96 07/20/22 12:15 91 Mechanical Ventilator 30 07/20/22 12:00 99 16 110/64 (79) 97 Mechanical Ventilator 30.00 07/20/22 12:00 37.5 07/20/22 11:00 109 15 106/63 (77) 96 Mechanical Ventilator 30.00 07/20/22 10:00 116 16 109/63 (78) 95 Mechanical Ventilator 30.00 I & O 07/21/22 07:00 Intake Total 1150 ml Output Total 1425 ml Balance -275 ml Height & Weight Height: '" Weight: lbs. oz. kg; 33.77 BMI Method: General Appearance: No Apparent Distress, Chronically ill, Other (sedated on vent) HEENT: PERRL/EOMI, Normal ENT Inspection Neck: Non Tender, Supple Respiratory: Other (on vent, equal chest rise) Cardiovascular: Regular Rate, Rhythm, No JVD Capillary Refill: Greater Than 3 Seconds Peripheral Pulses: 2+ Radial Pulses (R), 2+ Radial Pulses (L) Gastrointestinal: non tender, soft Extremity: Normal Capillary Refill, Pedal Edema Neurologic/Psychiatric: Other (does not respond or follow commands, on sed ation) Skin: Warm/Dry, Other (sacral decubitus ulcer stage 3/4, clean, no purulence) Lymphatic: No Adenopathy Results Lab Laboratory Tests 07/19/22 12:37 07/20/22 04:30 07/20/22 13:10 07/21/22 03:45 Assessment/Plan Assessment/Plan 1 GIFTY CASTRO MD Jul 21, 2022 09:49
[2022-07-21] MEDS ORDERED: HYPOCHLOROUS ACID/NaCl (VASHE) 250 ML IR PRN (10:30)
[2022-07-21] MEDS ORDERED: NYST15PO4 TP (10:32)
[2022-07-21] MEDS ORDERED: ARGI1POW19 PO (10:32)
[2022-07-21] MEDS ORDERED: [UNRECOGNIZED DRUG - CODE] PO (10:32)
[2022-07-21] MEDS ORDERED: CARI3CAP PO (10:32)
[2022-07-21] MEDS: VANCOMYCIN 1 GM/NS 250 ML IVPB IV SCH ×2 (11:08)
[2022-07-21] MEDS: DexMEDEtomidine 250 ML DRIP 250 ML IV SCH (17:21)
[2022-07-21] MEDS: ENOXAPARIN 40 MG/0.4 ML (LOVENOX) SYR SQ SCH (17:21)
--- NOTE | 2022-07-21 18:48 | Progress Note - Hospitalist ---
Subjective HPI/CC On Admission Date Seen by Provider: Jul 21, 2022 Time Seen by Provider: 09:15 Patient is a 57yo female with a past medical history of intellectual disability with chronic indwelling Suarez and PEG tube dependence presented to the emergency department due to altered mental status and hypoxia. She was intubated on arrival so unable to provide any history. Apparently she was found by her nursing facility hypoxic and this did not improve with oxygen. On arrival to the emergency department she was nearly obtunded and mottled and sats dropped into the 60s. She was emergently intubated. She was found to have a right-sided pneumonia and urinary tract infection and is admitted to the ICU for further management. Subjective/Events-last exam She remains intubated and sedated. Focused Exam Lactate Level 07/18/22 19:40: Lactic Acid Level 1.90 Time of Focused Exam: 15:00 Objective Exam Vital Signs Vital Signs Date Time Temp Pulse Resp B/P (MAP) Pulse Ox O2 Delivery O2 Flow Rate FiO2 07/21/22 17:21 97 152/77 07/21/22 17:00 18 99 Mechanical Ventilator 30.00 07/21/22 16:00 30 07/21/22 15:13 36.6 Capillary Refill : Greater Than 3 Seconds General Appearance: No Apparent Distress, Obese Respiratory: Lungs Clear, No Respiratory Distress, Other (intubated and mechanically ventilated) Cardiovascular: Regular Rate, Rhythm, No Murmur Gastrointestinal: Normal Bowel Sounds, Soft Extremity: Normal Inspection, Pedal Edema Neurologic/Psychiatric: Other (sedated) Skin: Normal Color, Warm/Dry Results/Procedures Lab Laboratory Tests 07/21/22 03:45 Patient resulted labs reviewed. Imaging: Reviewed Imaging Report Assessment/Plan Assessment and Plan Assess & Plan/Chief Complaint Septic Shock Acute hypoxic respiratory failure Pneumonia CAUTI Cultures with Pseudomonas Continue Zosyn Stop Vanc TeleICU following, managing ventilator Intellectual disability PEG dependent Chronic indwelling suarez No acute needs, resume home feeds when able Hypothyroidism Continue home Synthroid Critical Care Critically Ill Patient Diagnosis/Problems Diagnosis/Problems (1) Septic shock Status: Acute (2) Pneumonia Status: Acute (3) Acute respiratory failure Status: Acute (4) Endotracheally intubated Status: Acute (5) Pseudomonas pneumonia Status: Acute (6) Pseudomonas urinary tract infection Status: Acute (7) Urinary tract infection due to Klebsiella species Status: Acute ELY BROWN MD Jul 21, 2022 18:47
[2022-07-21] MEDS: LABETALOL HCL 20 MG/4 ML VIAL IV PRN (20:04)
[2022-07-21] MEDS: aCETylcysteine 20% (MUCOMYST) 4 ML SOLN VIAL INH SCH (22:07)
[2022-07-22] MEDS: PROPOFOL DRIP (ICU) 100 ML IV SCH ×3 (02:32→22:26)
[2022-07-22 02:33] VITALS: BP 136/74
[2022-07-22] MEDS: RT-ALBUTEROL/IPRATROPIUM 3 ML (DUONEB) VIAL INH SCH ×6 (02:33→21:51)
[2022-07-22] MEDS ORDERED: TROUGH ORDER-PHARMACY XX NR (04:00)
[2022-07-22 05:08] LABS: ABG BASE EXCESS -4.9 MMOL/L (-2.5-2.5); ABG OXYGEN SATURATION 98 % (94-100); ABG PCO2 36 MMHG (35-45); ABG PH 7.35 (7.37-7.43); ABG PO2 82 MMHG (79-93); ABG TCO2 20.8 MMOL/L (21.0-31.0); ALLENS TEST YES-POS; VENTILATOR YES
[2022-07-22 05:14] LABS: BASOPHILS % (AUTO) 0 % (0-10); EOSINOPHILS # (AUTO) 0.3 10^3/uL (0.0-0.3); EOSINOPHILS % (AUTO) 3 % (0-10); HEMATOCRIT 31 % (35-52); HEMOGLOBIN 9.9 g/dL (11.5-16.0); LYMPHOCYTES # (AUTO) 1.4 10^3/uL (1.0-4.0); LYMPHOCYTES % (AUTO) 11 % (12-44); MEAN CORPUSCULAR HEMOGLOBIN 31 pg (25-34); MEAN CORPUSCULAR HGB CONC 32 g/dL (32-36); MEAN CORPUSCULAR VOLUME 97 fL (80-99); MEAN PLATELET VOLUME 9.5 fL (9.0-12.2); MONOCYTES % (AUTO) 8 % (0-12); NEUTROPHILS # (AUTO) 9.8 10^3/uL (1.8-7.8); NEUTROPHILS % (AUTO) 77 % (42-75); PLATELET COUNT 360 10^3/uL (130-400); WHITE BLOOD COUNT 12.7 10^3/uL (4.3-11.0)
[2022-07-22] MEDS: DexMEDEtomidine 250 ML DRIP 250 ML IV SCH (05:17)
[2022-07-22] MEDS: LABETALOL HCL 20 MG/4 ML VIAL IV PRN (05:18)
[2022-07-22 05:47] LABS: ALBUMIN 2.3 GM/DL (3.2-4.5); BILIRUBIN,TOTAL 0.2 MG/DL (0.1-1.0); CALCIUM 8.2 MG/DL (8.5-10.1); CREATININE SERUM 0.48 MG/DL (0.60-1.30); MAGNESIUM 1.8 MG/DL (1.6-2.4); PHOSPHORUS 3.3 MG/DL (2.3-4.7); POTASSIUM 3.2 MMOL/L (3.6-5.0); TOTAL PROTEIN 5.8 GM/DL (6.4-8.2)
[2022-07-22] MEDS ORDERED: POTASSIUM CL 10MEQ/50ML IVPB 200 ML IV ONE (06:17)
[2022-07-22] MEDS: POTASSIUM CL 10MEQ/50ML IVPB 50 ML IV SCH ×5 (06:22→08:55)
[2022-07-22] MEDS: PIPERACILLIN SODIUM/TAZOBACTAM 4.5 GM in NS (IVPB) 100 ML IV SCH ×3 (06:22→22:58)
--- NOTE | 2022-07-22 06:33 | Occ Therapy Progress Note ---
Therapy Progress Note Pt is currently intubated. OT to monitor pt's status then will initiate treatment when pt is medically stable and able to actively participate in skilled therapy. SIS ORANTES Jul 22, 2022 06:33
[2022-07-22] MEDS: aCETylcysteine 20% (MUCOMYST) 4 ML SOLN VIAL INH SCH ×3 (06:38→21:51)
[2022-07-22 06:40] VITALS: BP 168/86
[2022-07-22] MEDS: MAGNESIUM 1 GM/100 ML IVPB 100 ML IV SCH (06:42)
[2022-07-22] MEDS: KCL 20 MEQ TAB (K-DUR) PO SCH (06:42)
--- NOTE | 2022-07-22 07:54 | Physical Therapy Progress Note ---
Therapy Progress Note Patient currently intubated. Will monitor and start when appropriate and patient can participate. DINA HANSEN PT Jul 22, 2022 07:54
--- NOTE | 2022-07-22 08:54 | Diagnostic Imaging Report ---
INDICATION: Pneumonia and sepsis Frontal chest obtained at 4:00 hours a.m. compared to 07/21/2022. ET tube tip overlies mid trachea. Heart is borderline in size. There is central vascular congestion. There is some mild infiltrate in the right lung base. There is no pneumothorax or pleural fluid. There is a new left-sided PICC line with tip overlying mid SVC. IMPRESSION: Stable ET tube. Mild infiltrate right lung base. Similar to the prior study. No pneumothorax or pleural fluid. Dictated by: Dictated on workstation # [id number]
[2022-07-22] MEDS: PANTOPRAZOLE 40 MG (PROTONIX) VIAL IV SCH (08:55)
--- NOTE | 2022-07-22 08:56 | Tele-ICU Progress Note ---
Subjective Date Seen by a Provider: Jul 22, 2022 Time Seen by a Provider: 08:56 Subjective/Events-last exam (Tele-ICU Physician , Progress Note ) Service provided via interactive audio and video telecommunications E-CARE system to a patient admitted to ICU bed in [facility]. Available chart/ vitals / labs / Images reviewed Video assessment done using teleICU camera, rest of exam as per RN Discussed with RN Events overnight : Afebrile hemodynamically stable Respiratory - 30% I/O = pos 1.5 l Drips: Pressors- OFF LEVO 07/21 VENT SETTINGS and ABG reviewed Sedation: RASS discussed with RN , precedex 0.8- follows somew commands CANDIDATE for SBTreviewed possible contraindications including Cardiovascular Stability /Sedation Score / FI02/PEEP / ABG / CXR/ secretions Consultants: Hospital course: 07/18 from [place] with hypoxia , intubated 07/21/22 - AC12/400/30%/+5. 07/21 - SBT - 1 h , asdded mucomist , changed to SIMV 07/22 - sbt , diamox x1 A/P Acute hypoxic resp failure with PNA - Intubated 07/18 -07/21 -SBT - 1 h , asdded mucomist , changed to SIMV SIMV 12/400/30%/+5. PS 10 - secreations and cxr are better- will monitor , start to assess for possible vent liberation PNA ( HAP ) with mucous pluging resulting in atelectasisi with significant volume loss on RIGHT side Sputum cx 07/18 - PSA , sens pending - agressive nebs and chest PT- IMPROVING - follow cxr UTI - chronic indwelling suarez catheter (previius cx + Enterococcus faecium ( sens to dapto and linexolid ) + Pseudomonas aeruginosa= pansensitive h/o osteomyelitis 04/2022 secondary to stage IV sacral decubitus ulcer - multiple organism in cx , including acinetobacter ( sens to minicycline only ) ( - s/p wound vac - removed after debrigement ) - WOUNG care and Sx follows h/o anemia ( precented with Hb 14 , now 9 - presumed delutional ) - stable Hb now h/p cognitive impairment - on precedex for anxiety now Nutritions - s/p PEG- tolerates TF Edma bilateral - gentle diuresis to start with diamox Electrolytes replacement Shock - RESOLVED - off IVF , will monitor Elv TGL -propofol - off Lines : , right femoral 07/18 (Central Line Necessity Reviewed) Suarez: chronic indwelling suarez catheter OG: Nutrition: to start TF 07/21 Analgesia: Anxiety/ delirium VTE Prophylaxis: marco 40 Stress Ulcer Prophylaxis: PPI Plans in collaboration with bedside consultants and IM MDs. Discussed with RN to reach out if any questions or concerns A total of 35 minutes of critical care time was devoted to this patient today, required to treat and/or prevent further deterioration of critical care condition ( as above ) . I am remotely monitoring this patient from another state. I am unable to do the bedside exam, and history/physical and pertinent information is taken from other notes in the computer and bedside staff. Sepsis Event Evaluation Height, Weight, BMI Height: '" Weight: lbs. oz. kg; 35.10 BMI Method: Focused Exam Time of Focused Exam: 15:00 Exam Exam Patient acknowledged, consented, and participated in this virtual visit which w as conducted using real time audio/video Vital Signs Date Time Temp Pulse Resp B/P (MAP) Pulse Ox O2 Delivery O2 Flow Rate FiO2 07/22/22 08:02 89 07/22/22 08:00 98 Mechanical Ventilator 30 07/22/22 08:00 89 21 159/82 (107) 98 Mechanical Ventilator 30.00 07/22/22 07:00 36.5 07/22/22 07:00 79 18 165/85 (111) 99 Mechanical Ventilator 30.00 07/22/22 06:40 74 21 100 30 07/22/22 06:00 75 12 167/87 (117) 100 Mechanical Ventilator 30.00 07/22/22 05:00 86 12 162/80 (113) 100 Mechanical Ventilator 30.00 07/22/22 04:00 12 154/80 (108) 100 Mechanical Ventilator 30.00 07/22/22 03:45 37.6 07/22/22 03:44 100 Mechanical Ventilator 30 07/22/22 03:00 91 12 141/73 (98) 98 Mechanical Ventilator 30.00 07/22/22 02:33 94 22 98 30 07/22/22 02:00 96 12 146/79 (105) 99 Mechanical Ventilator 30.00 07/22/22 01:00 97 07/22/22 01:00 97 12 150/81 (104) 98 Mechanical Ventilator 30.00 07/22/22 00:00 98 12 148/75 (102) 99 Mechanical Ventilator 30.00 07/22/22 00:00 99 Mechanical Ventilator 30 07/21/22 23:00 97 12 162/86 (116) 98 Mechanical Ventilator 30.00 07/21/22 22:07 84 19 100 30 07/21/22 22:00 86 12 158/88 (117) 100 Mechanical Ventilator 30.00 07/21/22 21:00 81 12 168/89 (121) 100 Mechanical Ventilator 30.00 07/21/22 21:00 36.4 07/21/22 20:00 99 Mechanical Ventilator 30 07/21/22 20:00 97 12 180/79 (114) 100 Mechanical Ventilator 30.00 07/21/22 19:00 91 07/21/22 19:00 91 12 185/75 (111) 100 Mechanical Ventilator 30.00 07/21/22 19:00 86 20 100 30 07/21/22 18:00 99 26 177/83 (114) 100 Mechanical Ventilator 30.00 07/21/22 17:21 97 152/77 07/21/22 17:00 93 18 153/77 (102) 99 Mechanical Ventilator 30.00 07/21/22 16:00 100 Mechanical Ventilator 30 07/21/22 16:00 97 18 152/77 (102) 100 Mechanical Ventilator 30.00 07/21/22 15:13 36.6 07/21/22 15:06 86 18 100 30 07/21/22 15:00 89 19 140/78 (98) 100 Mechanical Ventilator 30.00 07/21/22 14:00 84 15 149/75 (99) 100 Mechanical Ventilator 30.00 07/21/22 13:52 84 07/21/22 13:00 82 16 153/68 (96) 100 Mechanical Ventilator 30.00 07/21/22 12:11 88 18 100 30 07/21/22 12:00 94 18 134/67 (89) 100 Mechanical Ventilator 30.00 07/21/22 12:00 36.7 07/21/22 12:00 100 Mechanical Ventilator 30 07/21/22 11:47 Mechanical Ventilator 30.00 07/21/22 11:24 93 23 98 30 07/21/22 11:00 93 13 118/67 (84) 96 Mechanical Ventilator 30.00 11/7/22 10:59 92 20 96 30 07/21/22 10:04 100 90/53 07/21/22 10:00 87 14 128/68 (88) 96 Mechanical Ventilator 30.00 07/21/22 09:00 100 15 90/53 (65) 94 Mechanical Ventilator 30.00 I & O 07/22/22 07:00 Intake Total 4314 ml Output Total 2200 ml Balance 2114 ml Height & Weight Height: '" Weight: lbs. oz. kg; 35.10 BMI Method: General Appearance: No Apparent Distress, Obese HEENT: PERRL/EOMI, Normal ENT Inspection Neck: Non Tender, Supple Respiratory: Lungs Clear, No Respiratory Distress, Other (intubated and mechanically ventilated) Cardiovascular: Regular Rate, Rhythm, No Murmur Capillary Refill: Greater Than 3 Seconds Peripheral Pulses: 2+ Radial Pulses (R), 2+ Radial Pulses (L) Gastrointestinal: non tender, soft Extremity: Normal Inspection, Pedal Edema Neurologic/Psychiatric: Other (sedated) Skin: Normal Color, Warm/Dry Lymphatic: No Adenopathy Results Lab Laboratory Tests 07/20/22 13:10 07/21/22 03:45 07/22/22 04:20 Assessment/Plan Assessment/Plan 1 GIFTY CASTRO MD Jul 22, 2022 08:56
[2022-07-22 08:59] VITALS: BP 168/86
[2022-07-22] MEDS ORDERED: acetaZOLAMIDE INJ 500 MG/5 ML (DIAMOX) VIAL IV NR (09:00)
[2022-07-22] MEDS: NOREPINEPHRINE 8 MG/250 ML 250 ML IV SCH (09:16)
[2022-07-22 10:19] VITALS: BP 139/73
--- NOTE | 2022-07-22 16:58 | Progress Note - Hospitalist ---
Subjective HPI/CC On Admission Date Seen by Provider: Jul 22, 2022 Time Seen by Provider: 09:40 Patient is a 57yo female with a past medical history of intellectual disability with chronic indwelling Suarez and PEG tube dependence presented to the emergency department due to altered mental status and hypoxia. She was intubated on arrival so unable to provide any history. Apparently she was found by her nursing facility hypoxic and this did not improve with oxygen. On arrival to the emergency department she was nearly obtunded and mottled and sats dropped into the 60s. She was emergently intubated. She was found to have a right-sided pneumonia and urinary tract infection and is admitted to the ICU for further management. Subjective/Events-last exam She remains intubated. She is awake and alert. She is following commands. Focused Exam Time of Focused Exam: 15:00 Objective Exam Vital Signs Vital Signs Date Time Temp Pulse Resp B/P (MAP) Pulse Ox O2 Delivery O2 Flow Rate FiO2 07/22/22 16:00 98 Nasal Cannula 2.00 07/22/22 16:00 90 29 98/55 (69) 07/22/22 12:00 30 07/22/22 12:00 36.2 Capillary Refill : Greater Than 3 Seconds General Appearance: No Apparent Distress, Obese Respiratory: Lungs Clear, No Respiratory Distress, Other (intubated and mechanically ventilated) Cardiovascular: Regular Rate, Rhythm, No Murmur Gastrointestinal: Normal Bowel Sounds, Soft Extremity: Normal Inspection, No Pedal Edema Neurologic/Psychiatric: Alert, Normal Mood/Affect Skin: Normal Color, Warm/Dry Results/Procedures Lab Laboratory Tests 07/22/22 04:20 Patient resulted labs reviewed. Imaging: Reviewed Imaging Report Assessment/Plan Assessment and Plan Assess & Plan/Chief Complaint Septic Shock Acute hypoxic respiratory failure Pneumonia CAUTI Cultures with Pseudomonas Continue Zosyn TeleICU following Attempting ventilator weaning, possible extubation today Intellectual disability PEG dependent Chronic indwelling suarez No acute needs, resume home feeds when able Hypothyroidism Continue home Synthroid Critical Care Critically Ill Patient Diagnosis/Problems Diagnosis/Problems (1) Septic shock Status: Acute (2) Pneumonia Status: Acute (3) Acute respiratory failure Status: Acute (4) Endotracheally intubated Status: Acute (5) Pseudomonas pneumonia Status: Acute (6) Pseudomonas urinary tract infection Status: Acute (7) Urinary tract infection due to Klebsiella species Status: Acute ELY BROWN MD 8, 2022 16:58
[2022-07-22] MEDS: ENOXAPARIN 40 MG/0.4 ML (LOVENOX) SYR SQ SCH (17:03)
[2022-07-23] MEDS: NOREPINEPHRINE 8 MG/250 ML 250 ML IV SCH (01:27)
[2022-07-23] MEDS: RT-ALBUTEROL/IPRATROPIUM 3 ML (DUONEB) VIAL INH SCH ×6 (01:50→23:30)
[2022-07-23 05:08] LABS: BASOPHILS % (AUTO) 0 % (0-10); EOSINOPHILS # (AUTO) 0.2 10^3/uL (0.0-0.3); EOSINOPHILS % (AUTO) 1 % (0-10); HEMATOCRIT 31 % (35-52); HEMOGLOBIN 9.9 g/dL (11.5-16.0); LYMPHOCYTES # (AUTO) 1.6 10^3/uL (1.0-4.0); LYMPHOCYTES % (AUTO) 12 % (12-44); MEAN CORPUSCULAR HEMOGLOBIN 31 pg (25-34); MEAN CORPUSCULAR HGB CONC 32 g/dL (32-36); MEAN CORPUSCULAR VOLUME 98 fL (80-99); MEAN PLATELET VOLUME 9.1 fL (9.0-12.2); MONOCYTES % (AUTO) 8 % (0-12); NEUTROPHILS # (AUTO) 10.1 10^3/uL (1.8-7.8); NEUTROPHILS % (AUTO) 78 % (42-75); PLATELET COUNT 378 10^3/uL (130-400); WHITE BLOOD COUNT 12.9 10^3/uL (4.3-11.0)
[2022-07-23 05:22] LABS: ALBUMIN 2.2 GM/DL (3.2-4.5); POTASSIUM 3.6 MMOL/L (3.6-5.0)
[2022-07-23 05:23] LABS: CALCIUM 8.5 MG/DL (8.5-10.1)
[2022-07-23 05:25] LABS: TOTAL PROTEIN 5.6 GM/DL (6.4-8.2)
[2022-07-23 05:27] LABS: BILIRUBIN,TOTAL 0.3 MG/DL (0.1-1.0)
[2022-07-23 05:28] LABS: PHOSPHORUS 3.4 MG/DL (2.3-4.7)
[2022-07-23 05:29] LABS: CREATININE SERUM 0.51 MG/DL (0.60-1.30)
[2022-07-23 05:31] LABS: MAGNESIUM 1.9 MG/DL (1.6-2.4)
[2022-07-23] MEDS: POTASSIUM CL 10MEQ/50ML IVPB 50 ML IV SCH ×2 (06:12→06:35)
[2022-07-23] MEDS: PIPERACILLIN SODIUM/TAZOBACTAM 4.5 GM in NS (IVPB) 100 ML IV SCH ×2 (06:12→14:51)
[2022-07-23] MEDS: MAGNESIUM 1 GM/100 ML IVPB 100 ML IV SCH (06:35)
[2022-07-23] MEDS: KCL 20 MEQ TAB (K-DUR) PO SCH (06:35)
[2022-07-23] MEDS: aCETylcysteine 20% (MUCOMYST) 4 ML SOLN VIAL INH SCH ×3 (07:02→23:30)
[2022-07-23] MEDS: PANTOPRAZOLE 40 MG (PROTONIX) VIAL IV SCH (08:21)
--- NOTE | 2022-07-23 08:57 | Physical Therapy Evaluation ---
PT Evaluation-General Medical Diagnosis Admission Date Jul 18, 2022 at 17:48 Medical Diagnosis: Pneumonia Onset Date: Jul 18, 2022 Therapy Diagnosis Therapy Diagnosis: Debility, Impaired Mobility Precautions Precautions/Isolations: Fall Prevention, Standard Precautions, Pressure Ulcer Referral Physician: Zain Reason for Referral: Evaluation/Treatment Medical History Additional Medical History Developmental Disorder Reviewed History: Yes Social History Home: Intermediate Unable to obtain any information Prior Prior Level of Function SCALE: Activities may be completed with or without assistive devices. 0-Vriypcczes-kqvghmu completes the activity by him/herself with no assistance from a helper. 5-Set-up or Clean-up Assistance-helper sets up or cleans up; patient completes activity. [place] assists only prior to or following the activity. 4-Supervision or Touching Assistance-helper provides verbal cues and/or touching/steadying and/or contact guard assistance as patient completes activity. Assistance may be provided throughout the activity or intermittently. 3-Partial/Moderate Assistance-helper does LESS THAN HALF the effort. [place] lifts, holds or supports trunk or limbs, but provides less than half the effort. 2-Substantial/Maximal Assistance-helper does MORE THAN HALF the effort. [place] lifts or holds trunk or limbs and provides more than half the effort. 1-Dloiaksww-frggxf does ALL the effort. Patient does none of the effort to complete the activity. Or, the assistance of 2 or more helpers is required for the patient to complete the activity. If activity was not attempted, code reason: 7-Patient Refused. 9-Not Applicable-not attempted and the patient did not perform the activity before the current illness, exacerbation or injury. 10-Not Attempted due to Environmental Limitations-(lack of equipment, weather restraints, etc.). 88-Not Attempted due to Medical Conditions or Safety Concerns. Unable to obtain, nurse [facility] PT Evaluation-Current Subjective Patient in bed pre-tx, reports pain but unable to score, agrees to PT. Pt/Family Goals Unable to obtain Objective Patient Orientation: Person, Eyes Open, Mumbles Attachments: Oxygen, Pichardo Catheter, IV ROM/Strength ROM Lower Extremities Ankle ROM WFL, patient resistive with others to properly assess Strength Lower Extremities unable to test, patient would not follow directions and even resists testing Treatment LE PROM (ankle DF/PF, knee flex/ext, hip flex/ext/abd/add) x20 reps each Assessment/Needs Reported patient has a developmental disorder and does not communicate well. Patient resistant with PROM, and does not comprehend questions relating to prior function or scoring pain. Patient in bed post tx with nurse call, phone, tray, all needs met, heel protectors on and SCD's on. Patient seems to have increased temp in right leg, nurse notified. Rehab Potential: Poor PT Intermediate Goals Regional Service Manager Goals PT Regional Service Manager Goals Time Frame: Jul 30, 2022 Roll Left & Right (QC): 3 (Mod A) Sit to Lying (QC): 3 (Mod A) Lying-Sitting on Side/Bed(QC): 3 (Mod A) PT Plan Problem List Problem List: Activity Tolerance, Functional Strength, Safety, Balance, Gait, Transfer, Bed Mobility, ROM Treatment/Plan Treatment Plan: Continue Plan of Care Treatment Plan: Bed Mobility, Education, Functional Activity Cuate, Functional Strength, Safety, Therapeutic Exercise, Transfers Treatment Duration: Jul 30, 2022 Frequency: 6 times per week Estimated Hrs Per Day: .25 hour per day Patient and/or Family Agrees t: Yes Safety Risks/Education Patient Education: Correct Positioning, Safety Issues Teaching Recipient: Patient Teaching Methods: Demonstration, Discussion Response to Teaching: Reinforcement Needed Discharge Recommendations Plan Patient will perform bed mobility and functional strengthening in order to be more independent at the nursing center. Time Time In: 832 Time Out: 844 DATE: Jul 23, 2022 Total Billed Treatment Time: 12 Total Billed Treatment 1 visit SAÚLM 12min DINA HANSEN PT Jul 23, 2022 08:57
--- NOTE | 2022-07-23 09:10 | Tele-ICU Progress Note ---
Subjective Date Seen by a Provider: Jul 23, 2022 Time Seen by a Provider: 09:09 Subjective/Events-last exam (Tele-ICU Physician , Progress Note ) Service provided via interactive audio and video telecommunications E-CARE system to a patient admitted to ICU bed in [facility]. Available chart/ vitals / labs / Images reviewed Video assessment done using teleICU camera, rest of exam as per RN Discussed with RN Events overnight : Afebrile hemodynamically stable Respiratory - 30% I/O = pos 1.5 l Drips: Pressors- OFF LEVO 07/21 Consultants: Hospital course: 07/18 from [place] with hypoxia , intubated 07/21/22 - AC12/400/30%/+5. 07/21 - SBT - 1 h , asdded mucomist , changed to SIMV 07/22 - sbt , diamox x1 07/22 EXTUBATED 07/23 - 10 L o2 ( overnignt 4 l ) , +diarrhea A/P Acute hypoxic resp failure with PNA - Intubated 07/18 - 07/22 EXTUBATED - secretions are better- will monitor on albuterol / mucomist nebs, re-order cxr - on 10 L o2 , follow abg and cxr PNA ( HAP ) with mucous pluging resulting in atelectasisi with significant volume loss on RIGHT side Sputum cx 07/18 - PSA , sens pending - agressive nebs and chest PT- IMPROVING - follow cxr UTI - chronic indwelling suarez catheter (previius cx + Enterococcus faecium ( sens to dapto and linexolid ) + Pseudomonas aeruginosa= pansensitive h/o osteomyelitis 04/2022 secondary to stage IV sacral decubitus ulcer - multiple organism in cx , including acinetobacter ( sens to minicycline only ) ( - s/p wound vac - removed after debrigement ) - WOUNG care and Sx follows h/o anemia ( precented with Hb 14 , now 9 - presumed delutional ) - stable Hb now h/p cognitive impairment - on precedex for anxiety now Nutritions - s/p PEG- tolerates TF Diarrhea x2days - add lactobacillus , follow Will hold diuretics today - no VF , diarrhea - > follow closely Edma bilateral - gentle diuresis to start with diamox Electrolytes replacement Shock - RESOLVED - off IVF , will monitor Elv TGL -propofol - off Lines : , right femoral 07/18 (Central Line Necessity Reviewed) Suarez: chronic indwelling suarez catheter OG: Nutrition: to start TF 07/21 Analgesia: Anxiety/ delirium VTE Prophylaxis: marco 40 Stress Ulcer Prophylaxis: PPI Plans in collaboration with bedside consultants and IM MDs. Discussed with RN to reach out if any questions or concerns A total of 32 minutes of critical care time was devoted to this patient today, required to treat and/or prevent further deterioration of critical care condition ( as above ) . I am remotely monitoring this patient from another state. I am unable to do the bedside exam, and history/physical and pertinent information is taken from other notes in the computer and bedside staff. Sepsis Event Evaluation Height, Weight, BMI Height: '" Weight: lbs. oz. kg; 35.10 BMI Method: Focused Exam Time of Focused Exam: 15:00 Exam Exam Patient acknowledged, consented, and participated in this virtual visit which was conducted using real time audio/video Vital Signs Date Time Temp Pulse Resp B/P (MAP) Pulse Ox O2 Delivery O2 Flow Rate FiO2 07/23/22 08:33 97 High Flow N/C 4.00 07/23/22 08:25 100 High Flow N/C 8.00 07/23/22 08:00 36.8 07/23/22 08:00 111 27 138/66 (90) 97 Nasal Cannula 2.00 07/23/22 07:48 97 High Flow N/C 4.00 07/23/22 07:21 92 High Flow N/C 10.00 07/23/22 07:18 114 07/23/22 07:00 109 33 123/74 (90) 93 Nasal Cannula 2.00 07/23/22 06:00 98 21 119/67 (85) 91 Nasal Cannula 2.00 07/23/22 05:00 97 26 113/64 (76) 96 Nasal Cannula 2.00 07/23/22 04:00 96 Nasal Cannula 2.00 07/23/22 04:00 37.0 07/23/22 04:00 102 26 119/69 (97) 94 Nasal Cannula 2.00 07/23/22 03:00 101 30 122/68 (78) 93 Nasal Cannula 2.00 07/23/22 02:00 108 25 123/67 (89) 94 Nasal Cannula 2.00 07/23/22 01:51 97 High Flow N/C 2.00 07/23/22 01:00 105 25 122/62 (99) 98 Nasal Cannula 2.00 07/23/22 01:00 105 07/23/22 00:00 36.6 07/23/22 00:00 102 25 110/75 (87) 98 Nasal Cannula 2.00 07/22/22 23:59 96 Nasal Cannula 2.00 07/22/22 23:00 102 35 115/73 (84) 89 Nasal Cannula 2.00 07/22/22 22:00 90 34 109/59 (77) 97 Nasal Cannula 2.00 07/22/22 21:52 97 High Flow N/C 2.00 07/22/22 21:51 97 High Flow N/C 2.00 07/22/22 21:00 87 29 103/56 (75) 96 Nasal Cannula 2.00 07/22/22 20:00 87 99/53 (69) 92 Nasal Cannula 2.00 07/22/22 20:00 96 Nasal Cannula 2.00 07/22/22 19:59 36.8 07/22/22 19:00 85 35 95/58 (73) 98 Nasal Cannula 2.00 07/22/22 19:00 85 07/22/22 18:43 98 High Flow N/C 2.00 07/22/22 18:00 87 29 99/63 (75) 98 Nasal Cannula 2.00 07/22/22 17:00 86 28 106/59 (75) 98 Nasal Cannula 2.00 07/22/22 16:00 98 Nasal Cannula 2.00 07/22/22 16:00 90 29 98/55 (69) 97 Nasal Cannula 2.00 07/22/22 15:14 98 High Flow N/C 2.00 07/22/22 15:00 88 143/71 (95) 98 Nasal Cannula 2.00 07/22/22 14:00 84 139/74 (95) 99 Mechanical Ventilator 30.00 07/22/22 14:00 Mechanical Ventilator 30.00 07/22/22 13:00 83 138/74 (95) 99 Mechanical Ventilator 30.00 07/22/22 12:17 87 07/22/22 12:00 90 126/68 (87) 98 Mechanical Ventilator 30.00 07/22/22 12:00 98 Mechanical Ventilator 30 07/22/22 12:00 36.2 07/22/22 11:00 94 10 113/62 (79) 96 Mechanical Ventilator 30.00 07/22/22 10:19 82 31 100 30 07/22/22 10:00 81 28 139/74 (95) 99 Mechanical Ventilator 30.00 07/22/22 09:44 85 156/84 I & O 07/23/22 07:00 Intake Total 1860 ml Output Total 4850 ml Balance -2990 ml Height & Weight Height: '" Weight: lbs. oz. kg; 35.10 BMI Method: General Appearance: No Apparent Distress, Obese HEENT: PERRL/EOMI, Normal ENT Inspection Neck: Non Tender, Supple Respiratory: Lungs Clear, No Respiratory Distress, Other (intubated and mechanically ventilated) Cardiovascular: Regular Rate, Rhythm, No Murmur Capillary Refill: Greater Than 3 Seconds Peripheral Pulses: 2+ Radial Pulses (R), 2+ Radial Pulses (L) Gastrointestinal: non tender, soft Extremity: Normal Inspection, No Pedal Edema Neurologic/Psychiatric: Alert, Normal Mood/Affect Skin: Normal Color, Warm/Dry Lymphatic: No Adenopathy Results Lab Laboratory Tests 07/22/22 04:20 07/23/22 04:55 Assessment/Plan Assessment/Plan 1 GIFTY CASTRO MD Jul 23, 2022 09:10
--- NOTE | 2022-07-23 09:39 | Occupational Therapy Eval ---
OT Evaluation-General/PLF Medical Diagnosis Admission Date Jul 18, 2022 at 17:48 Medical Diagnosis: Pneumonia Onset Date: Jul 18, 2022 Therapy Diagnosis Therapy Diagnosis: n/a Precautions Precautions/Isolations: Fall Prevention, Standard Precautions, Pressure Ulcer Referral Physician: Zain Referral Reason: Evaluation/Treatment Medical History Additional Medical History ID, chronic indwelling suarez, PEG tube Current History ED with AMS and hypoxia Social History Home: [facility]way ADL-Prior Level of Function SCALE: Activities may be completed with or without assistive devices. 5-Mhltvktoir-hzrxjxn completes the activity by him/herself with no assistance from a helper. 5-Set-up or Clean-up Assistance-helper sets up or cleans up; patient completes activity. [place] assists only prior to or following the activity. 4-Supervision or Touching Assistance-helper provides verbal cues and/or touching/steadying and/or contact guard assistance as patient completes activity. Assistance may be provided throughout the activity or intermittently. 3-Partial/Moderate Assistance-helper does LESS THAN HALF the effort. [place] lifts, holds or supports trunk or limbs, but provides less than half the effort. 2-Substantial/Maximal Assistance-helper does MORE THAN HALF the effort. [place] lifts or holds trunk or limbs and provides more than half the effort. 4-Dcckmtbws-iskoqj does ALL the effort. Patient does none of the effort to complete the activity. Or, the assistance of 2 or more helpers is required for the patient to complete the activity. If activity was not attempted, code reason: 7-Patient Refused. 9-Not Applicable-not attempted and the patient did not perform the activity before the current illness, exacerbation or injury. 10-Not Attempted due to Environmental Limitations-(lack of equipment, weather restraints, etc.). 88-Not Attempted due to Medical Conditions or Safety Concerns. ADL PLOF Comments Pt has chronic indwelling suarez and PEG tube for feeding. Pt indicates she requires assistance with all ADLS. Per nurse, pt is bed bound at [facility] Self Care: Dependent Functional Cognition: Dependent OT Current Status Subjective Pt in bed, agreeable to OT Tx. Pt limited with communication throughout tx, but able to respond "yes ma'am" and "ouch". Pt reports pain in entire body. Mental Status/Objective Patient Orientation: Person, Confused Attachments: Suarez Catheter, IV, Oxygen, PEG Tube, Telemetry Current Upper Extremity ROM Decreased bilaterally. Pt unable to perform AROM, PROM shoulder flexion to approx 45 degrees bilaterally, elbows full extension passively, limited flexion due to pain. Pt unable to make full fist passively, able to fully extend fingers passively. Upper Extremity Strength unable to assess due to pt's difficulty following instructions. Edema: some swelling noted in bilateral hands. ADL-Treatment Eating (QC): 9 (PEG) Shower/Bathe Self (QC): 1 (Pt would require total assistance.) Lower Body Dressing (QC): 1 (Pt would require total assistance) On/Off Footwear (QC): 1 (Pt would require total assistance) Toileting Hygiene (QC): 1 (total assist with hygiene.) Other Treatments Pt in bed, able to answer questions with "yes ma'am". Accuracy of responses unknown. Pt participated in PROM, did not initiate AROM with UEs. With all movements, pt replied "ouch" after moving each joint slightly, so task terminated. OT assisted pt with washing her hands, dependent with task. OT performed gentle retrograde massage to dorsal aspect of hands. Post tx, pt in bed, call light in reach and all needs met. Education OT Patient Education: Correct positioning, Exercise program, Modified ADL techniques, Progress toward Goal/Update tx plan, Purpose of tx/functional activities Teaching Recipient: Patient Teaching Methods: Demonstration, Discussion Response to Teaching: Unable to Return Demonstration, Unable to Comprehend OT Transformer Maker Goals Half-Way Goals 1=Demonstrate adherence to instructed precautions during ADL tasks. 2=Patient will verbalize/demonstrate understanding of assistive devices/modifications for ADL. 3=Patient will improve strength/tolerance for activity to enable patient to perf orm ADL's. OT Education/Plan Problem List/Assessment Assessment: No Skilled OT Needs ID'd Pt is currently at her PLOF with ADLS, requiring total care at [facility]. Skilled OT services not indicated at this time. D/C from OT. Discharge Recommendations Plan/Recommendations: Discharge/Goals Met Treatment Plan/Plan of Care Patient would benefit from OT for education, treatment and training to promote independence in ADL's, mobility, safety and/or upper extremity function for ADL's. Plan of Care: ADL Retraining, Functional Mobility, UE Funct Exercise/Act Treatment Duration: Jul 23, 2022 Frequency: 1 time per week (eval only) Estimated Hrs Per Day: .25 hour per day Rehab Potential: Poor Time Start Time: 09:22 Stop Time: 09:31 DATE: Jul 23, 2022 Total Time Billed (hr/min): 9 Billed Treatment Time 1, SHERLY LOBO OT Jul 23, 2022 09:39
[2022-07-23 09:50] LABS: ABG BASE EXCESS -7.4 MMOL/L (-2.5-2.5); ABG OXYGEN SATURATION 92 % (94-100); ABG PCO2 30 MMHG (35-45); ABG PH 7.37 (7.37-7.43); ABG PO2 59 MMHG (79-93); ABG TCO2 17.7 MMOL/L (21.0-31.0)
[2022-07-23 09:53] LABS: INSPIRED O2 30%; PATIENT TEMP 37.6; VENTILATOR NO
--- NOTE | 2022-07-23 10:15 | Diagnostic Imaging Report ---
EXAMINATION: Chest, 1 view. HISTORY: Hypoxia. COMPARISON: 07/22/2022. FINDINGS: Heart size and pulmonary vasculature are normal. There are slightly decreased interstitial opacities within the lung bases compared to 07/22/2022. No pleural effusion or pneumothorax. Endotracheal tube has been removed. Left-sided PICC line is unchanged. Degenerative changes of the thoracic spine. Osseous structures are otherwise intact. IMPRESSION: Mild improvement ing the bibasilar opacities compared to the prior exam. Interval removal of the endotracheal tube. Dictated by: Dictated on workstation # [id number]
[2022-07-23] MEDS: HYDROcodone/APAP 5 MG/325 MG (LORTAB) TAB PEG PRN ×2 (11:03→20:20)
--- NOTE | 2022-07-23 11:40 | Progress Note - Hospitalist ---
LESTER ALMARAZ 07/23/22 1139: Subjective HPI/CC On Admission Date Seen by Provider: Jul 23, 2022 Time Seen by Provider: 08:44 Patient is a 57yo female with a past medical history of intellectual disability with chronic indwelling Suarez and PEG tube dependence presented to the emergency department due to altered mental status and hypoxia. She was intubated on arrival so unable to provide any history. Apparently she was found by her nursing facility hypoxic and this did not improve with oxygen. On arrival to the emergency department she was nearly obtunded and mottled and sats dropped into the 60s. She was emergently intubated. She was found to have a right-sided pneumonia and urinary tract infection and is admitted to the ICU for further management. Subjective/Events-last exam Pt is awake and alert. She was extubated yesterday. Is complaining of having pain. When asked she says that the pain is everywhere. Able to follow commands when asked. Nursing reports that pt is doing well. Review of Systems Unable to obtain due to cognitive delay Focused Exam Time of Focused Exam: 15:00 Objective Exam Vital Signs Vital Signs Date Time Temp Pulse Resp B/P (MAP) Pulse Ox O2 Delivery O2 Flow Rate FiO2 07/23/22 10:15 94 High Flow N/C 4.00 07/23/22 10:00 108 30 138/83 (101) 07/23/22 08:00 36.8 07/22/22 12:00 30 Capillary Refill : Greater Than 3 Seconds General Appearance: No Apparent Distress, WD/WN HEENT: PERRL/EOMI; No Photophobia Respiratory: No Accessory Muscle Use, No Respiratory Distress, Other (course breath sounds) Cardiovascular: No Murmur, Normal Peripheral Pulses, Tachycardia Gastrointestinal: Non Tender, Soft Extremity: Normal Capillary Refill, Non Tender, No Calf Tenderness Neurologic/Psychiatric: Alert, Normal Mood/Affect Skin: Normal Color, Warm/Dry Results/Procedures Lab Laboratory Tests 07/23/22 04:55 Patient resulted labs reviewed. Imaging: Reviewed Imaging Report Assessment/Plan Assessment and Plan Assess & Plan/Chief Complaint Septic Shock (resolved) Acute hypoxic respiratory failure Pneumonia CAUTI Has been extubated and is on 4L of O2 via NC Cultures with Pseudomonas On Zosyn currently, plan is to switch to Levaquin today Move to 4th floor today and home tomorrow if possible Intellectual disability PEG dependent Chronic indwelling suarez No acute needs, resume home feeds when able Hypothyroidism Continue home Synthroid ELY BROWN MD 07/23/22 1737: Subjective HPI/CC On Admission Time Seen by Provider: 09:40 Assessment/Plan Assessment and Plan Assess & Plan/Chief Complaint Extubated successfully, now on nasal cannula. Off pressors and sedation. Adjust tube feeds to have 4 hour break, transition to Levaquin per PEG tomorrow morning. Transfer to medical floor. Likely discharge tomorrow. Diagnosis/Problems Diagnosis/Problems (1) Septic shock Status: Acute (2) Pneumonia Status: Acute (3) Urinary tract infection due to Klebsiella species Status: Acute (4) Pseudomonas urinary tract infection Status: Acute (5) Pseudomonas pneumonia Status: Acute (6) Cognitive impairment Status: Chronic (7) PEG (percutaneous endoscopic gastrostomy) status Supervisory-Addendum Brief Verification & Attestation Participated in pt care: history, MDM, physical Personally performed: exam, history, MDM, supervision of care Care discussed with: Medical Student Procedures: n/a Results interpretation: Verified all documentation A medical student performed and documented this service in my presence. I rev iewed and verified all information documented by the medical student and made modifications to such information, when appropriate. I personally performed the physical exam and medical decision making. LESTER ALMARAZ Jul 23, 2022 11:39 ELY BROWN MD Jul 23, 2022 17:37
[2022-07-23] MEDS: LACTOBACILLUS ACIDOPHILUS (PROBIOTIC) CAPSULE PO SCH ×2 (12:36→18:34)
[2022-07-23] MEDS: ENOXAPARIN 40 MG/0.4 ML (LOVENOX) SYR SQ SCH (18:34)
[2022-07-23 20:07] VITALS: BP 158/92
[2022-07-23] MEDS: DOCUSATE SODIUM 100 MG (COLACE) CAP PO SCH (20:19)
[2022-07-23] MEDS: clonazePAM 0.5 MG (KlonoPIN) TAB PO SCH (20:19)
[2022-07-23] MEDS: VALPROIC ACID SYRUP 250 MG/5 ML UDC PEG SCH (20:19)
[2022-07-23] MEDS ORDERED: MELATONIN 10 MG TABLET PO SCH (21:00)
[2022-07-24] VITALS (7 sets, daily range): BP systolic 126–136; BP diastolic 67–88
[2022-07-24] MEDS: RT-ALBUTEROL/IPRATROPIUM 3 ML (DUONEB) VIAL INH SCH ×4 (02:52→16:47)
[2022-07-24 05:07] LABS: BASOPHILS # (AUTO) 0.1 10^3/uL (0.0-0.1); BASOPHILS % (AUTO) 1 % (0-10); EOSINOPHILS # (AUTO) 0.2 10^3/uL (0.0-0.3); EOSINOPHILS % (AUTO) 1 % (0-10); HEMATOCRIT 33 % (35-52); HEMOGLOBIN 10.6 g/dL (11.5-16.0); LYMPHOCYTES # (AUTO) 2.4 10^3/uL (1.0-4.0); LYMPHOCYTES % (AUTO) 19 % (12-44); MEAN CORPUSCULAR HEMOGLOBIN 31 pg (25-34); MEAN CORPUSCULAR HGB CONC 32 g/dL (32-36); MEAN CORPUSCULAR VOLUME 97 fL (80-99); MEAN PLATELET VOLUME 8.9 fL (9.0-12.2); MONOCYTES # (AUTO) 1.1 10^3/uL (0.0-1.0); MONOCYTES % (AUTO) 9 % (0-12); NEUTROPHILS # (AUTO) 8.6 10^3/uL (1.8-7.8); NEUTROPHILS % (AUTO) 68 % (42-75); PLATELET COUNT 412 10^3/uL (130-400); WHITE BLOOD COUNT 12.6 10^3/uL (4.3-11.0)
[2022-07-24 05:34] LABS: ALBUMIN 2.4 GM/DL (3.2-4.5); POTASSIUM 3.3 MMOL/L (3.6-5.0)
[2022-07-24 05:35] LABS: CALCIUM 8.8 MG/DL (8.5-10.1)
[2022-07-24] MEDS: POTASSIUM CL 10MEQ/50ML IVPB 50 ML IV SCH ×5 (05:35→09:16)
[2022-07-24 05:36] LABS: TOTAL PROTEIN 6.1 GM/DL (6.4-8.2)
[2022-07-24 05:38] LABS: BILIRUBIN,TOTAL 0.2 MG/DL (0.1-1.0)
[2022-07-24 05:40] LABS: CREATININE SERUM 0.5 MG/DL (0.60-1.30); PHOSPHORUS 3.3 MG/DL (2.3-4.7)
[2022-07-24 05:43] LABS: MAGNESIUM 1.9 MG/DL (1.6-2.4)
[2022-07-24] MEDS: MAGNESIUM 1 GM/100 ML IVPB 100 ML IV SCH (05:52)
[2022-07-24] MEDS: KCL 20 MEQ TAB (K-DUR) PO SCH (05:52)
[2022-07-24] MEDS: aCETylcysteine 20% (MUCOMYST) 4 ML SOLN VIAL INH SCH ×2 (07:34→16:47)
[2022-07-24] MEDS ORDERED: NS IV 500 ML 500 ML ONE (08:09)
--- NOTE | 2022-07-24 08:59 | Diagnostic Imaging Report ---
Indication: Hypoxia Frontal chest obtained at 0515 a.m. Compared to 07/23/2022 Heart is mildly prominent. There is mild central vascular congestion. There is increasing infiltrate versus atelectasis in right base. There is no pneumothorax. There is a question of some pleural fluid in the right costophrenic angle. PICC line tip overlies SVC. IMPRESSION: Increasing infiltrate versus atelectasis in the right lung base with question of small right pleural effusion. Dictated by: Dictated on workstation # [id number]
[2022-07-24] MEDS ORDERED: MICONAZOLE 2% POWDER (DESENEX AF) 90 GM TOP SCH (09:00)
[2022-07-24] MEDS ORDERED: NON-FORMULARY MEDICATION 1 EA EA (Cariprazine Hydrochloride (Vraylar) 3 MG) PO SCH (09:00)
[2022-07-24] MEDS ORDERED: FUROSEMIDE 40 MG (LASIX) TAB PO SCH (09:00)
[2022-07-24] MEDS ORDERED: PANTOPRAZOLE 40 MG (PROTONIX) TAB PO SCH (09:00)
[2022-07-24] MEDS ORDERED: LEVOTHYROXINE 112 MCG (LEVOTHROID) TAB PO SCH (09:00)
[2022-07-24] MEDS: clonazePAM 0.5 MG (KlonoPIN) TAB PO SCH (09:27)
[2022-07-24] MEDS: LACTOBACILLUS ACIDOPHILUS (PROBIOTIC) CAPSULE PO SCH ×2 (09:27→12:16)
[2022-07-24] MEDS: VALPROIC ACID SYRUP 250 MG/5 ML UDC PEG SCH (09:37)
[2022-07-24] MEDS: DOCUSATE SODIUM 100 MG (COLACE) CAP PO SCH (09:52)
[2022-07-24] MEDS ORDERED: LEVO750T PEG (11:34)
[2022-07-24] MEDS: HYDROcodone/APAP 5 MG/325 MG (LORTAB) TAB PEG PRN (14:44)
== END 2022-07-24 18:00 | DRG 871 ==
LOC: EDUNIT# 14:33 → ER 14:35 → ICU 17:48 → 4TH 07-23 16:04
PROVIDERS: ADMIT Family Medicine; ATTEND Internal Medicine
PROC: 5A1945Z Respiratory Ventilation, 24-96 Consecutive Hours (ICD-10-PCS; principal; 2022-07-18)
PROC: 0BH17EZ Insertion of Endotracheal Airway into Trachea, Via Natural or Artificial Opening (ICD-10-PCS; 2022-07-18)
PROC: 5A0935A Assistance with Respiratory Ventilation, Less than 24 Consecutive Hours, High Flow/Velocity Cannula (ICD-10-PCS; 2022-07-22)
DX: A41.52 Sepsis due to Pseudomonas (principal); J96.01 Acute respiratory failure with hypoxia; L89.154 Pressure ulcer of sacral region, stage 4; R65.21 Severe sepsis with septic shock; T83.518A Infection and inflammatory reaction due to other urinary catheter, initial encounter; J98.11 Atelectasis; F72 Severe intellectual disabilities; E87.3 Alkalosis; E87.0 Hyperosmolality and hypernatremia; A41.59 Other Gram-negative sepsis; T17.990A Other foreign object in respiratory tract, part unspecified in causing asphyxiation, initial encounter; E86.0 Dehydration; D64.9 Anemia, unspecified; R41.0 Disorientation, unspecified; F41.9 Anxiety disorder, unspecified; E03.9 Hypothyroidism, unspecified; Z93.1 Gastrostomy status; R60.0 Localized edema
CPT/HCPCS: 36415; 36569; 36600; 71045; 76937; 80048; 80053; 80202; 81000; 82805; 82947; 83605; 83735; 84100; 84132; 84478; 85007; 85025; 85027; 85610; 85730; 87040; 87070; 87077; 87081; 87088; 87186; 87205; 93005; 94002; 94003; 94640; 94760; 94799; 96361; 96365; 96367; 99291

== ENCOUNTER → 2022-08-11 | Outpatient (CLI) | payer MEDICARE, MEDICAID ==
[~2022-08-11] MED LIST changes: +ARGI1POW19 PO; +CARI3CAP PO; +LEVO750T PEG; +NYST15PO4 TP; +[UNRECOGNIZED DRUG - CODE] PO
== END ==
LOC: WOUNDCARE 09:12
PROVIDERS: ATTEND Family Medicine
DX: L89.154 Pressure ulcer of sacral region, stage 4 (principal); M46.28 Osteomyelitis of vertebra, sacral and sacrococcygeal region; E66.01 Morbid (severe) obesity due to excess calories; F72 Severe intellectual disabilities; U09.9 Post COVID-19 condition, unspecified; D46.4 Refractory anemia, unspecified; E55.9 Vitamin D deficiency, unspecified; L21.9 Seborrheic dermatitis, unspecified; B37.2 Candidiasis of skin and nail; L24.A2 Irritant contact dermatitis due to fecal, urinary or dual incontinence; E43 Unspecified severe protein-calorie malnutrition; I96 Gangrene, not elsewhere classified
CPT/HCPCS: 11042; A6212; G0463

== ENCOUNTER 2022-08-18 14:33 | Emergency (ER) | payer MEDICARE, MEDICAID ==
[2022-08-18 14:37] VITALS: BP 120/81
--- NOTE | 2022-08-18 14:51 | ED General ---
General Chief Complaint: General Problems/Pain Stated Complaint: HEAD AND WRIST PAIN Source of Information: Patient Exam Limitations: No Limitations History of Present Illness Date Seen by Provider: Aug 18, 2022 Time Seen by Provider: 14:47 Initial Comments 57-year-old intellectually delayed female to ER by EMS from [facility] with reports of a fall that was unwitnessed. She was found laying next to her bed, complained initially of wrist pain, uncertain which side and right foot pain. Timing/Duration: 1/2 Hour Severity: Moderate Allergies and Home Medications Allergies Coded Allergies: cranberry (Verified Allergy, Unknown, 04/23/22) Patient Home Medication List Home Medication List Reviewed: Yes Acetaminophen (Children's Acetaminophen) 160 Mg/5 Ml Liquid, 31.23 ML PEG Q8H PRN for PAIN-MILD (1-4), (Reported) Entered as Reported by: JAKUB REYES on 04/24/22 1122 Amino Acids/Protein Hydrolys (Pro-Stat Awc Liquid) 17 Gram-100 Kcal/30 Ml Liquid, 30 ML PO BID, (Reported) Entered as Reported by: LALO MORRIS on 07/21/22 1032 Arginine/Ascorbate Sod/Nadeen AC (Arginaid Powder) 4.5 Gram-156 Mg-90 Unit/9.2 Gram Powd.pack, 1 EACH PO BID, (Reported) Entered as Reported by: LALO MORRIS on 07/21/22 1032 Cariprazine Hydrochloride (Vraylar) 3 Mg Capsule, 3 MG PO DAILY, (Reported) Entered as Reported by: LALO MORRIS on 07/21/22 1032 Clonazepam (Clonazepam) 0.5 Mg Tablet, 0.25 MG PO BID, (Reported) Entered as Reported by: JAKUB REYES on 04/24/22 1106 Docusate Sodium (Docusate Sodium) 100 Mg Tablet, 100 MG PEG BID, (Reported) Entered as Reported by: JAKUB REYES on 04/24/22 1103 Furosemide (Furosemide) 40 Mg Tablet, 40 MG PO DAILY, (Reported) Entered as Reported by: JAKUB REYES on 04/24/22 1058 Hydrocodone/Acetaminophen (Hydrocodone-Acetamin 5-325 mg) 5 Mg-325 Mg Tablet, 1 TAB PEG BID PRN for PAIN-MODERATE (5-7), (Reported) Entered as Reported by: JAKUB REYES on 04/24/22 1111 Hydrocodone/Acetaminophen (Hydrocodone-Acetamin 5-325 mg) 5 Mg-325 Mg Tablet, 1 TAB PO Q6H PRN for PAIN-MODERATE (5-7) Prescribed by: VERNELL PALOMO on 08/18/22 1521 Lactobacillus Acidophilus (Acidophilus) 1 Each Capsule, 1 EACH PO BID, (Reported) Entered as Reported by: JAKUB REYES on 04/24/22 1115 Levofloxacin (Levofloxacin) 750 Mg Tablet, 750 MG PEG DAILY@1100 Prescribed by: ELY BROWN on 07/24/22 1134 Levothyroxine Sodium (Levothyroxine) 112 Mcg Capsule, 112 MCG PO DAILY, (Reported) Entered as Reported by: JAKUB REYES on 04/24/22 1124 Melatonin (Melatonin) 5 Mg Tablet, 5 MG PO HS, (Reported) Entered as Reported by: JAKUB REYES on 04/24/22 1059 Multivit-Minerals/Ferrous Gluc (Multi-Nadeen Liquid) 9 Mg Iron/15 Ml Liquid, 15 ML PEG DAILY, (Reported) Entered as Reported by: JAKUB REYES on 04/24/22 1102 Nystatin (Nystatin) 100,000 Unit/Gram Powder, 1 APPLIC TP DAILY, (Reported) Entered as Reported by: LALO MORRIS on 07/21/22 1032 Nystatin/Triamcinolone (Nystatin-Triamcinolone Cream) 100,000 Unit/Gram-0.1 % Cr, 1 APPLIC TP Q8H PRN for REDNESS, (Reported) Entered as Reported by: JAKUB REYES on 04/24/22 1123 Pantoprazole Sodium (Pantoprazole Sodium) 40 Mg Tablet.dr, 40 MG PO DAILY, (Reported) Entered as Reported by: JAKUB REYES on 04/24/22 1102 Sodium Chlor/Hypochlorous Acid (Vashe Wound Solution) 0.033 % Irrig.soln, 1 APPL IC TOP BID, (Reported) Entered as Reported by: JAKUB REYES on 04/24/22 1118 Valproic Acid (As Sodium Salt) (Valproic Acid) 250 Mg/5 Ml Solution, 20 ML PEG BID, (Reported) Entered as Reported by: JAKUB REYES on 04/24/22 1117 Review of Systems Review of Systems Constitutional: see HPI, other (Unable to obtain) Past Yzxfhqu-Qrlgby-Sfzpee Hx Past Medical History Developmental Disorder Family Medical History No Pertinent Family Hx Physical Exam Vital Signs Vital Signs - First Documented 08/18/22 14:37 Temp 37.1 Pulse 103 Resp 20 B/P (MAP) 120/81 (94) Pulse Ox 96 Capillary Refill : Height, Weight, BMI Height: '" Weight: lbs. oz. kg; 32.62 BMI Method: General Appearance: No Apparent Distress, WD/WN, Other (Alert, laying in bed, has an indwelling Pichardo catheter. Moaning. Answers yes or no questions by shaking her head but otherwise does not answer open-ended questions.) HEENT: PERRL/EOMI, TMs Normal Neck: Full Range of Motion, Normal Inspection Respiratory: Normal Breath Sounds, No Accessory Muscle Use, No Respiratory Distress Cardiovascular: Regular Rate, Rhythm, Normal Peripheral Pulses Gastrointestinal: Normal Bowel Sounds, Non Tender, Soft Extremity: Normal Capillary Refill, Normal Inspection, Other (Moans and cries when she is touched anywhere and then when asked if she has any pain at that specific location she shakes her head no. The bilateral wrist and right foot seem to be primary location of pain. Abdomen is flat soft nontender) Neurologic/Psychiatric: Alert, Oriented x3 Skin: Normal Color, Warm/Dry Procedures/Interventions Date of ETT Placement: Jul 18, 2022 Time of ETT Placement: 1530 Progress/Results/Core Measures Suspected Sepsis SIRS Temperature: Pulse: Respiratory Rate: Blood Pressure / Mean: Results/Orders My Orders Orders - VERNELL PALOMO APRN Foot, Right, 3 View (08/18/22 14:47) Hydrocodone/Apap 5/325 Tablet (Lortab 5 (08/18/22 15:00) Wrist,Bilat,3 Views Or More (08/18/22 14:47) Oxycodone 5 Mg/5ml Oral Soln (Roxicodone (08/18/22 15:45) Vital Signs/I&O 08/18/22 14:37 Temp 37.1 Pulse 103 Resp 20 B/P (MAP) 120/81 (94) Pulse Ox 96 Capillary Refill : Departure Communication (Admissions) There appears to be a subacute fracture of the proximal right first metatarsal evidenced by fracture with callus formation and same with the proximal right fifth metatarsal. No fracture seen in either wrist. Awaiting radiology report. I spoke with the nurse at [facility] they had no other concerns other than the fall, she has been acting as per her baseline up until the fall and since the fall. They were only concerned about a wrist injury. They confirm that she moans in pain anytime she is touched anywhere and this is her normal. Impression Primary Impression: Fall at senior living Additional Impression: Foot fracture, right Disposition: 01 HOME, SELF-CARE Condition: Stable Departure-Patient Inst. Decision time for Depature: 15:16 Referrals: JOHN PICKERING MD (PCP/Family) Primary Care Physician Patient Instructions: Preventing Falls ED Add. Discharge Instructions: Pain medication as needed. Return to ER for any concerns. Follow-up with your doctor next week. Wear the postop shoe when she is up in a wheelchair. She can take it off when in bed. All discharge instructions reviewed with patient and/or family. Voiced understanding. Scripts Hydrocodone/Acetaminophen (Hydrocodone-Acetamin 5-325 mg) 5 Mg-325 Mg Tablet 1 TAB PO Q6H PRN for PAIN-MODERATE (5-7), #10 TAB Prov: VERNELL PALOMO APRN 08/18/22 VERNELL PALOMO APRN Aug 18, 2022 14:51
[2022-08-18] MEDS ORDERED: HYDROcodone/APAP 5 MG/325 MG (LORTAB) TAB PO ONE (15:00)
[2022-08-18] MEDS ORDERED: ACHD5005 PO (15:21)
--- NOTE | 2022-08-18 15:24 | Diagnostic Imaging Report ---
Indication: Fall. Time of Exam: 3:10 PM Three views right foot were obtained. Metatarsals appear to be intact. The phalanges appear intact. Midfoot and hindfoot are unremarkable apart from a large plantar calcaneal spur. No fractures are seen. IMPRESSION: No acute bony abnormality is detected. Dictated by: Dictated on workstation # [id number]
--- NOTE | 2022-08-18 15:38 | Diagnostic Imaging Report ---
INDICATION: Bilateral wrist pain post fall AP, oblique, and lateral views of both wrists are obtained. There are extensive degenerative changes throughout the carpal bones and 1st carpal metacarpal joint and radiocarpal joint bilaterally. No acute fracture or acute bony abnormality is seen. 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 Dictated by: Dictated on workstation # [id number]
[2022-08-18] MEDS ORDERED: oxyCODONE 5 MG/5 ML ORAL SOLN (roxiCODONE) 5 ML UDC PO PRN (15:45)
== END 2022-08-18 18:13 | disposition home or self-care (01) ==
LOC: EDUNIT# 14:33 → ER 14:34
DX: S92.311A Displaced fracture of first metatarsal bone, right foot, initial encounter for closed fracture (principal); S92.351A Displaced fracture of fifth metatarsal bone, right foot, initial encounter for closed fracture; W19.XXXA Unspecified fall, initial encounter; Y92.129 Unspecified place in nursing home as the place of occurrence of the external cause
CPT/HCPCS: 73630

== ENCOUNTER 2022-08-23 13:03 | Emergency (ER) | payer MEDICARE, MEDICAID ==
[~2022-08-23 13:03] MED LIST changes: +ACHD5005 PO
[2022-08-23] MEDS ORDERED: RT-ALBUTEROL/IPRATROPIUM 3 ML (DUONEB) VIAL INH ONE (13:30)
--- NOTE | 2022-08-23 13:52 | Diagnostic Imaging Report ---
INDICATION: Cough and shortness of breath. COMPARISON: 07/24/2022. FINDINGS: The lungs appear clear without focal airspace opacities or consolidation. There are no findings of an effusion. There is no evidence of a pneumothorax. Heart size and mediastinal contours appear appropriate. Pulmonary vascularity appears within normal limits. There is no acute or suspicious osseous abnormality demonstrated. IMPRESSION: No radiographic evidence of an acute cardiopulmonary process. Dictated by: Dictated on workstation # [id number]
--- NOTE | 2022-08-23 14:06 | ED Cough/URI ---
General Chief Complaint: Respiratory Problems Stated Complaint: UPPER RESPIRATORY INFECTION Nursing Triage Note: PT BROUGHT IN BY [facility] FROM [facility]. PER NH, PT HAS BEEN GETTING TREATMENT FOR URI, HAS BEEN TAKING LEVAQUIN AND PREDNISONE. ALSO REPORTS SHE HAS BEEN ON CIPROFLOXACIN FOR UTI. STATES HAS BEEN 85% ON 3.5L NC. EMS PLACED PT ON 5LNC AND OXYGEN INCREASED TO 93%. History of Present Illness Date Seen by Provider: Aug 23, 2022 Time Seen by Provider: 14:00 Initial Comments Patient is a 57-year-old female who presents to the emergency department via EMS from [facility] for evaluation of reported hypoxia today. Patient has been treated for a URI since 08/20 with Levaquin. She reportedly had intermittently increased temperatures per charting that accompanies the patient from the facility. Patient had a two-view chest x-ray on 08/20 but the results are not available in the paperwork. Patient states she has no complaints at this time but is asking for something to eat and drink. EMS increased patient's oxygen from 3.5 L to 5 L with subsequent increase in oxygen saturations to the mid 90s. Patient is in the upper 90s upon presentation here. She was quickly weaned back to 3-1/2 L with oxygen saturations remaining in the mid 90s. Allergies and Home Medications Allergies Coded Allergies: cranberry (Verified Allergy, Unknown, 04/23/22) Patient Home Medication List Home Medication List Reviewed: Yes Acetaminophen (Children's Acetaminophen) 160 Mg/5 Ml Liquid, 31.23 ML PEG Q8H PRN for PAIN-MILD (1-4), (Reported) Entered as Reported by: JAKUB REYES on 04/24/22 1122 Amino Acids/Protein Hydrolys (Pro-Stat Awc Liquid) 17 Gram-100 Kcal/30 Ml Liquid, 30 ML PO BID, (Reported) Entered as Reported by: LALO MORRIS on 07/21/22 1032 Arginine/Ascorbate Sod/Nadeen AC (Arginaid Powder) 4.5 Gram-156 Mg-90 Unit/9.2 Gram Powd.pack, 1 EACH PO BID, (Reported) Entered as Reported by: LALO MORRIS on 07/21/22 1032 Cariprazine Hydrochloride (Vraylar) 3 Mg Capsule, 3 MG PO DAILY, (Reported) Entered as Reported by: LALO MORRIS on 07/21/22 1032 Clonazepam (Clonazepam) 0.5 Mg Tablet, 0.25 MG PO BID, (Reported) Entered as Reported by: JAKUB REYES on 04/24/22 1106 Docusate Sodium (Docusate Sodium) 100 Mg Tablet, 100 MG PEG BID, (Reported) Entered as Reported by: JAKUB REYES on 04/24/22 1103 Furosemide (Furosemide) 40 Mg Tablet, 40 MG PO DAILY, (Reported) Entered as Reported by: JAKUB REYES on 04/24/22 1058 Hydrocodone/Acetaminophen (Hydrocodone-Acetamin 5-325 mg) 5 Mg-325 Mg Tablet, 1 TAB PEG BID PRN for PAIN-MODERATE (5-7), (Reported) Entered as Reported by: JAKUB REYES on 04/24/22 1111 Hydrocodone/Acetaminophen (Hydrocodone-Acetamin 5-325 mg) 5 Mg-325 Mg Tablet, 1 TAB PO Q6H PRN for PAIN-MODERATE (5-7) Prescribed by: VERNELL PALOMO on 08/18/22 1521 Lactobacillus Acidophilus (Acidophilus) 1 Each Capsule, 1 EACH PO BID, (Reported) Entered as Reported by: JAKUB REYES on 04/24/22 1115 Levofloxacin (Levofloxacin) 750 Mg Tablet, 750 MG PEG DAILY@1100 Prescribed by: ELY BROWN on 07/24/22 1134 Levothyroxine Sodium (Levothyroxine) 112 Mcg Capsule, 112 MCG PO DAILY, (Reported) Entered as Reported by: JAKUB REYES on 04/24/22 1124 Melatonin (Melatonin) 5 Mg Tablet, 5 MG PO HS, (Reported) Entered as Reported by: JAKUB REYES on 04/24/22 1059 Multivit-Minerals/Ferrous Gluc (Multi-Nadeen Liquid) 9 Mg Iron/15 Ml Liquid, 15 ML PEG DAILY, (Reported) Entered as Reported by: JAKUB REYES on 04/24/22 1102 Nystatin (Nystatin) 100,000 Unit/Gram Powder, 1 APPLIC TP DAILY, (Reported) Entered as Reported by: LALO MORRIS on 07/21/22 1032 Nystatin/Triamcinolone (Nystatin-Triamcinolone Cream) 100,000 Unit/Gram-0.1 % Cr, 1 APPLIC TP Q8H PRN for REDNESS, (Reported) Entered as Reported by: JAKUB REYES on 04/24/22 1123 Pantoprazole Sodium (Pantoprazole Sodium) 40 Mg Tablet.dr, 40 MG PO DAILY, (Reported) Entered as Reported by: JAKUB REYES on 04/24/22 1102 Sodium Chlor/Hypochlorous Acid (Vashe Wound Solution) 0.033 % Irrig.soln, 1 APPLIC TOP BID, (Reported) Entered as Reported by: JAKUB REYES on 04/24/22 1118 Valproic Acid (As Sodium Salt) (Valproic Acid) 250 Mg/5 Ml Solution, 20 ML PEG BID, (Reported) Entered as Reported by: JAKUB REYES on 04/24/22 1117 Review of Systems Review of Systems Constitutional: see HPI, fever EENTM: no symptoms reported Respiratory: see HPI, cough Cardiovascular: no symptoms reported Gastrointestinal: no symptoms reported Genitourinary: no symptoms reported Musculoskeletal: no symptoms reported Skin: no symptoms reported Psychiatric/Neurological: No Symptoms Reported Hematologic/Lymphatic: No Symptoms Reported Immunological/Allergic: no symptoms reported Past Nalbshj-Ssrprd-Fozkny Hx Patient Social History Tobacco Use?: No Use of E-Cig and/or Vaping dev: No Substance use?: No Alcohol Use?: No Pt feels they are or have been: No Past Medical History Developmental Disorder Family Medical History No Pertinent Family Hx Physical Exam Vital Signs - First Documented 08/23/22 13:03 Temp 36.3 Pulse 104 Resp 22 B/P (MAP) 131/84 (100) Pulse Ox 95 O2 Delivery Nasal Cannula O2 Flow Rate 5.00 Capillary Refill : Less Than 3 Seconds Height: '" Weight: lbs. oz. kg; BMI Method: General Appearance: WD/WN, no apparent distress HEENT: PERRL/EOMI, normal ENT inspection, TMs normal, pharynx normal Neck: non-tender, full range of motion, supple Respiratory: chest non-tender, no respiratory distress, no accessory muscle use, rales, wheezing, expiration Cardiovascular: regular rate, rhythm Gastrointestinal: normal bowel sounds, non tender, soft Extremities: normal range of motion, non-tender, normal inspection Neurologic/Psychiatric: no motor/sensory deficits, alert, normal mood/affect, oriented x 3 Skin: normal color, warm/dry Procedures/Interventions Date of ETT Placement: Jul 18, 2022 Time of ETT Placement: 1530 Progress/Results/Core Measures Suspected Sepsis SIRS Temperature: Pulse: 104 Respiratory Rate: 22 Blood Pressure 131 /84 Mean: 100 Results/Orders My Orders Orders - PUSHPA KUMAR APRN Chest 1 View, Ap/Pa Only (08/23/22 13:18) Albuterol/Ipra Inhalation Soln (Duoneb I (08/23/22 13:30) Svn Small Volume Nebulizer (08/23/22 13:18) Medications Given in ED Current Medications Medications Dose Ordered Sig/Schuyler Route Start Time Stop Time Status Last Admin Dose Admin Albuterol/ Ipratropium 3 ml ONCE ONCE INH 08/23/22 13:30 08/23/22 13:31 DC 08/23/22 13:40 3 ML Vital Signs/I&O 08/23/22 08/23/22 08/23/22 13:03 13:05 14:32 Temp 36.3 36.3 Pulse 104 104 Resp 22 22 B/P (MAP) 131/84 (100) 131/84 Pulse Ox 95 95 O2 Delivery Nasal Cannula Nasal Cannula Nasal Cannula O2 Flow Rate 5.00 3.50 5.00 5.00 Capillary Refill : Less Than 3 Seconds Blood Pressure Mean: 100 Progress Note : Progress Note Patient is nontoxic and well-hydrated on exam. She does have some diffuse rales as well as expiratory wheezing. No significant accessory muscle use appreciated on exam. Patient is sitting upright speaking in full sentences asking for something to eat and drink. She does have a wet cough that is nonproductive. Vital signs are reassuring. [facility] do not reveal any fever she has had intermittent mild tachycardia into the low 100s. She is not febrile here. She is not tachypneic and her blood pressure is good. Chest x-ray was obtained that is acutely negative. She was also given a DuoNeb with significant improvement in breath sounds. There is no indication at this time for further evaluation and she does not meet any criteria for admission given that she is on her baseline oxygen. We will discharge her back to her facility. Follow-up with PCP. Return precautions for urgent symptomology discussed. Nursing report was given to the facility. Departure Impression Primary Impression: Wheezing-associated respiratory infection (WARI) Disposition: 01 HOME, SELF-CARE Condition: Stable Departure-Patient Inst. Decision time for Depature: 14:05 Referrals: JOHN PICKERING MD (PCP/Family) Primary Care Physician Patient Instructions: Upper Respiratory Infection ED PUSHPA KUMAR APRN Aug 23, 2022 14:05
[2022-08-23 14:32] VITALS: BP 131/84
== END 2022-08-23 15:31 | disposition home or self-care (01) ==
LOC: EDUNIT# 13:03 → ER 13:04
DX: R06.2 Wheezing (principal); R05.9 Cough, unspecified
CPT/HCPCS: 71045

== ENCOUNTER → 2022-09-02 | Outpatient (CLI) | payer MEDICARE, MEDICAID | LOC: WOUNDCARE 10:05 | PROVIDERS: ATTEND Family Medicine | DX: L89.154 Pressure ulcer of sacral region, stage 4 (principal); E66.01 Morbid (severe) obesity due to excess calories; F72 Severe intellectual disabilities; E43 Unspecified severe protein-calorie malnutrition; U09.9 Post COVID-19 condition, unspecified; D46.4 Refractory anemia, unspecified; E55.9 Vitamin D deficiency, unspecified; L24.A2 Irritant contact dermatitis due to fecal, urinary or dual incontinence; R29.6 Repeated falls | CPT/HCPCS: 11042; A6212; G0463 ==

== ENCOUNTER → 2022-09-25 | Outpatient (CLI) | payer MEDICARE, MEDICAID | LOC: WOUNDCARE 08:20 | PROVIDERS: ATTEND Family Medicine | DX: L89.154 Pressure ulcer of sacral region, stage 4 (principal); E66.01 Morbid (severe) obesity due to excess calories; F72 Severe intellectual disabilities; E43 Unspecified severe protein-calorie malnutrition; D46.4 Refractory anemia, unspecified; E55.9 Vitamin D deficiency, unspecified; L24.A2 Irritant contact dermatitis due to fecal, urinary or dual incontinence; R29.6 Repeated falls; U09.9 Post COVID-19 condition, unspecified | CPT/HCPCS: 11042; A6212; G0463 ==

== ENCOUNTER → 2022-10-17 | Outpatient (CLI) | payer MEDICARE, MEDICAID | LOC: WOUNDCARE 08:44 | PROVIDERS: ATTEND Family Medicine | DX: L89.154 Pressure ulcer of sacral region, stage 4 (principal); E66.01 Morbid (severe) obesity due to excess calories; F72 Severe intellectual disabilities; E43 Unspecified severe protein-calorie malnutrition; U09.9 Post COVID-19 condition, unspecified; D46.4 Refractory anemia, unspecified; E55.9 Vitamin D deficiency, unspecified; L24.A2 Irritant contact dermatitis due to fecal, urinary or dual incontinence; I96 Gangrene, not elsewhere classified; R29.6 Repeated falls | CPT/HCPCS: 11042; A6212; G0463 ==

== ENCOUNTER → 2022-11-05 | Outpatient (CLI) | payer MEDICARE, MEDICAID | LOC: WOUNDCARE 08:48 | PROVIDERS: ATTEND Family Medicine | DX: L89.154 Pressure ulcer of sacral region, stage 4 (principal); E66.01 Morbid (severe) obesity due to excess calories; F72 Severe intellectual disabilities; E43 Unspecified severe protein-calorie malnutrition; U09.9 Post COVID-19 condition, unspecified; D46.4 Refractory anemia, unspecified; E55.9 Vitamin D deficiency, unspecified; L24.A2 Irritant contact dermatitis due to fecal, urinary or dual incontinence; R29.6 Repeated falls | CPT/HCPCS: 11042; A6212; G0463 ==

== ENCOUNTER → 2022-12-01 | Outpatient (CLI) | payer MEDICARE, MEDICAID | LOC: WOUNDCARE 08:17 | PROVIDERS: ATTEND Family Medicine | DX: L89.154 Pressure ulcer of sacral region, stage 4 (principal); E66.01 Morbid (severe) obesity due to excess calories; F72 Severe intellectual disabilities; E43 Unspecified severe protein-calorie malnutrition; U09.9 Post COVID-19 condition, unspecified; D46.4 Refractory anemia, unspecified; E55.9 Vitamin D deficiency, unspecified; L24.A2 Irritant contact dermatitis due to fecal, urinary or dual incontinence; R29.6 Repeated falls | CPT/HCPCS: A6212; G0463; 99213 ==